=== PATIENT | female | born 1950 | race Caucasian/White ===

== ENCOUNTER 2018-06-20 13:03 | Inpatient (IN) | payer MEDICARE, MEDICAID ==
[2018-06-20 14:10] LABS: BASO % 0.2 % (0.0-1.0); EOS % 0.7 % (0.0-3.0); HEMATOCRIT 40.4 % (36.0-47.0); HEMOGLOBIN 13.2 g/dl (12.0-15.5); IMMATURE GRANULOCYTE % 0.3 % (0-3.0); LYMPH # 1.8 10^3/uL (1.5-4.5); MEAN CORPUSCULAR HEMOGLOBIN 33.3 pg (27.0-33.0); MEAN CORPUSCULAR HGB CONC 32.7 g/dl (32.0-36.5); MONO # 0.5 10^3/uL (0.0-0.8); MONO % 7.8 % (0.0-5.0); NEUTROPHILS # 3.6 10^3/uL (1.8-7.7); PLATELET COUNT, AUTOMATED 173 10^3/uL (150-450); RED BLOOD COUNT 3.96 10^6/uL (4.00-5.40); RED CELL DISTRIBUTION WIDTH 13.6 % (11.5-14.5); WHITE BLOOD COUNT 5.9 10^3/uL (4.0-10.0)
[2018-06-20 14:13] LABS: ALBUMIN 2.5 GM/DL (3.2-5.2); ALBUMIN/GLOBULIN RATIO 0.81 (1.00-1.93); ALKALINE PHOSPHATASE 37 U/L (45-117); ALT/SGPT 11 U/L (12-78); AMYLASE 58 U/L (25-115); ANION GAP 7 MEQ/L (8-16); AST/SGOT 8 U/L (7-37); BILIRUBIN,DIRECT 0.1 MG/DL (0.0-0.2); BILIRUBIN,TOTAL 0.2 MG/DL (0.2-1.0); BLOOD UREA NITROGEN 20 MG/DL (7-18); CALCIUM LEVEL 8.9 MG/DL (8.8-10.2); CARBON DIOXIDE LEVEL 29 MEQ/L (21-32); CHLORIDE LEVEL 108 MEQ/L (98-107); CPK CREATINE PHOSPHOKINASE 49 U/L (26-192); CREATININE FOR GFR 0.72 MG/DL (0.55-1.30); GLOMERULAR FILTRATION RATE > 60.0 (>45); GLUCOSE, FASTING 124 MG/DL (70-100); INR 0.89; LIPASE 746 U/L (73-393); MB/CK RELATIVE INDEX 3.06 (< OR =4); PROTHROMBIN TIME 12.1 SECONDS (12.1-14.4); SODIUM LEVEL 144 MEQ/L (136-145); TOTAL PROTEIN 5.6 GM/DL (6.4-8.2); TROPONIN I < 0.02 NG/ML (< 0.10)
[2018-06-20 14:14] LABS: PARTIAL THROMBOPLASTIN TIME 25.7 SECONDS (25.4-37.6)
[2018-06-20 14:24] LABS: LACTIC ACID SEPSIS PROTOCOL 2.6 MMOL/L (0.4-2.0)
[2018-06-20] MEDS: NS 1,000 ML IV ×2 (14:37→16:15)
[2018-06-20] MEDS ORDERED: ISOVUE-370 76% 100ML VIAL (Q9967) As Ordered (16:14)
[2018-06-20] MEDS ORDERED: MIRALAX POWDER 255 GM BTL (POLYETHYLENE GLYCOL) PO (17:30)
[2018-06-20] MEDS: FLEET ENEMA PR (17:30)
[2018-06-20] MEDS ORDERED: ONDANSETRON 4MG/2ML VIAL (J2405) IV (17:45)
[2018-06-20] MEDS ORDERED: NICOTINE 21MG/24HR 1 EA TRANSDERMAL TD (17:45)
[2018-06-20] MEDS ORDERED: IPRATROPIUM 0.5MG/ALBUTEROL 2.5MG INH SOL UD 3ML (DUONEB)(J7620) NEB (17:45)
[2018-06-20] MEDS ORDERED: ACETAMINOPHEN TAB 650MG DOSE (2X325MG) PO (17:45)
[2018-06-20 18:35] LABS: CPK CREATINE PHOSPHOKINASE 45 U/L (26-192); MB/CK RELATIVE INDEX 3.33 (< OR =4); TROPONIN I 0.02 NG/ML (< 0.10)
[2018-06-20 18:42] LABS: FREE THYROXINE INDEX 2.1 % (1.3-4.8); T UPTAKE 37 % (30-39); THYROXINE (T4) 5.6 UG/DL (4.5-12.0)
[2018-06-20] MEDS: MIRALAX *UNIT DOSE* 17GM PACKET PO (19:11)
[2018-06-21] MEDS: HEPARIN SOD (PORCINE) 5000 UNITS/ML VIAL SC ×3 (00:43→20:52)
[2018-06-21] MEDS: ZIPRASIDONE 80 MG CAP (GEODON) PO ×3 (00:44→20:51)
[2018-06-21] MEDS: MIRALAX *UNIT DOSE* 17GM PACKET PO ×3 (00:45→20:52)
[2018-06-21] MEDS: LR 1,000 ML IV ×3 (00:45→12:08)
[2018-06-21] MEDS: DIVALPROEX 500MG *ER* TAB PO ×3 (00:45→20:51)
[2018-06-21] MEDS: SENOKOT S TAB PO ×3 (00:45→20:52)
[2018-06-21 07:00] LABS: HEMOGLOBIN 13.3 g/dl (12.0-15.5); MEAN CORPUSCULAR HEMOGLOBIN 33.8 pg (27.0-33.0); MEAN CORPUSCULAR HGB CONC 33.3 g/dl (32.0-36.5); MEAN CORPUSCULAR VOLUME 101.8 fl (80.0-96.0); PLATELET COUNT, AUTOMATED 175 10^3/uL (150-450); RED BLOOD COUNT 3.93 10^6/uL (4.00-5.40); RED CELL DISTRIBUTION WIDTH 13.2 % (11.5-14.5); WHITE BLOOD COUNT 6.8 10^3/uL (4.0-10.0)
[2018-06-21 07:20] LABS: ALBUMIN 2.4 GM/DL (3.2-5.2); ALBUMIN/GLOBULIN RATIO 0.77 (1.00-1.93); ALKALINE PHOSPHATASE 36 U/L (45-117); ALT/SGPT 11 U/L (12-78); ANION GAP 6 MEQ/L (8-16); AST/SGOT 12 U/L (7-37); BILIRUBIN,TOTAL 0.3 MG/DL (0.2-1.0); BLOOD UREA NITROGEN 10 MG/DL (7-18); CARBON DIOXIDE LEVEL 31 MEQ/L (21-32); CHLORIDE LEVEL 110 MEQ/L (98-107); CREATININE FOR GFR 0.56 MG/DL (0.55-1.30); GLOMERULAR FILTRATION RATE > 60.0 (>45); GLUCOSE, FASTING 74 MG/DL (70-100); LIPASE 139 U/L (73-393); POTASSIUM SERUM 4.2 MEQ/L (3.5-5.1); SODIUM LEVEL 147 MEQ/L (136-145); TOTAL PROTEIN 5.5 GM/DL (6.4-8.2)
[2018-06-21] MEDS: ESCITALOPRAM OXALATE 10 MG TAB (LEXAPRO) PO (08:11)
[2018-06-21] MEDS: risperiDONE 3 MG TAB PO (08:11)
[2018-06-22] MEDS: LR 1,000 ML IV ×3 (00:43→23:49)
[2018-06-22 05:08] LABS: HEMATOCRIT 37.6 % (36.0-47.0); HEMOGLOBIN 12.5 g/dl (12.0-15.5); MEAN CORPUSCULAR HEMOGLOBIN 33.2 pg (27.0-33.0); MEAN CORPUSCULAR HGB CONC 33.2 g/dl (32.0-36.5); PLATELET COUNT, AUTOMATED 163 10^3/uL (150-450); RED BLOOD COUNT 3.76 10^6/uL (4.00-5.40); RED CELL DISTRIBUTION WIDTH 13.6 % (11.5-14.5); WHITE BLOOD COUNT 5.7 10^3/uL (4.0-10.0)
[2018-06-22 05:40] LABS: ALBUMIN 2.2 GM/DL (3.2-5.2); ALBUMIN/GLOBULIN RATIO 0.71 (1.00-1.93); ALKALINE PHOSPHATASE 34 U/L (45-117); ALT/SGPT 10 U/L (12-78); ANION GAP 5 MEQ/L (8-16); AST/SGOT 10 U/L (7-37); BILIRUBIN,TOTAL 0.3 MG/DL (0.2-1.0); BLOOD UREA NITROGEN 12 MG/DL (7-18); CALCIUM LEVEL 8.9 MG/DL (8.8-10.2); CARBON DIOXIDE LEVEL 32 MEQ/L (21-32); CHLORIDE LEVEL 110 MEQ/L (98-107); CREATININE FOR GFR 0.65 MG/DL (0.55-1.30); GLOMERULAR FILTRATION RATE > 60.0 (>45); GLUCOSE, FASTING 62 MG/DL (70-100); LIPASE 163 U/L (73-393); POTASSIUM SERUM 4.2 MEQ/L (3.5-5.1); SODIUM LEVEL 147 MEQ/L (136-145); TOTAL PROTEIN 5.3 GM/DL (6.4-8.2)
[2018-06-22] MEDS: ESCITALOPRAM OXALATE 10 MG TAB (LEXAPRO) PO (08:59)
[2018-06-22] MEDS: HEPARIN SOD (PORCINE) 5000 UNITS/ML VIAL SC ×2 (08:59→20:05)
[2018-06-22] MEDS: DIVALPROEX 500MG *ER* TAB PO ×2 (09:00→20:05)
[2018-06-22] MEDS: SENOKOT S TAB PO (09:00)
[2018-06-22] MEDS: MIRALAX *UNIT DOSE* 17GM PACKET PO (09:00)
[2018-06-22] MEDS: risperiDONE 3 MG TAB PO (09:00)
[2018-06-22] MEDS: ZIPRASIDONE 80 MG CAP (GEODON) PO (09:00)
[2018-06-22 17:12] LABS: BEDSIDE GLUCOSE 123 MG/DL (80-115)
[2018-06-22] MEDS ORDERED: ZIPRASIDONE 20MG CAPSULE (GEODON) PO (18:00)
[2018-06-22] MEDS: ZIPRASIDONE 20MG CAPSULE (GEODON) PO (18:49)
[2018-06-22] MEDS: ARIPiprazole 2 MG TAB PO (20:05)
[2018-06-22] MEDS ORDERED: DIVALPROEX 250MG *ER* TAB PO (21:00)
[2018-06-23 00:53] LABS: BEDSIDE GLUCOSE 76 MG/DL (80-115)
[2018-06-23 06:13] LABS: BEDSIDE GLUCOSE 79 MG/DL (80-115)
[2018-06-23 06:29] LABS: HEMATOCRIT 36.1 % (36.0-47.0); HEMOGLOBIN 11.9 g/dl (12.0-15.5); MEAN CORPUSCULAR HEMOGLOBIN 33.3 pg (27.0-33.0); MEAN CORPUSCULAR VOLUME 101.1 fl (80.0-96.0); PLATELET COUNT, AUTOMATED 145 10^3/uL (150-450); RED BLOOD COUNT 3.57 10^6/uL (4.00-5.40); RED CELL DISTRIBUTION WIDTH 13.9 % (11.5-14.5); WHITE BLOOD COUNT 6.7 10^3/uL (4.0-10.0)
[2018-06-23 06:54] LABS: ALBUMIN 2.1 GM/DL (3.2-5.2); ALBUMIN/GLOBULIN RATIO 0.88 (1.00-1.93); ALKALINE PHOSPHATASE 32 U/L (45-117); ALT/SGPT 10 U/L (12-78); ANION GAP 8 MEQ/L (8-16); AST/SGOT 10 U/L (7-37); BILIRUBIN,TOTAL 0.2 MG/DL (0.2-1.0); BLOOD UREA NITROGEN 11 MG/DL (7-18); CALCIUM LEVEL 8.7 MG/DL (8.8-10.2); CARBON DIOXIDE LEVEL 30 MEQ/L (21-32); CHLORIDE LEVEL 108 MEQ/L (98-107); CREATININE FOR GFR 0.57 MG/DL (0.55-1.30); GLOMERULAR FILTRATION RATE > 60.0 (>45); GLUCOSE, FASTING 70 MG/DL (70-100); LIPASE 413 U/L (73-393); MAGNESIUM LEVEL 1.8 MG/DL (1.8-2.4); POTASSIUM SERUM 3.9 MEQ/L (3.5-5.1); SODIUM LEVEL 146 MEQ/L (136-145); TOTAL PROTEIN 4.5 GM/DL (6.4-8.2)
[2018-06-23] MEDS: HEPARIN SOD (PORCINE) 5000 UNITS/ML VIAL SC ×2 (08:30→20:46)
[2018-06-23] MEDS: risperiDONE 3 MG TAB PO (08:31)
[2018-06-23] MEDS: DIVALPROEX 500MG *ER* TAB PO ×2 (08:31→20:46)
[2018-06-23] MEDS: ESCITALOPRAM OXALATE 10 MG TAB (LEXAPRO) PO (08:32)
[2018-06-23] MEDS: ZIPRASIDONE 20MG CAPSULE (GEODON) PO ×2 (08:34→19:39)
[2018-06-23 08:45] LABS: CHOLESTEROL LEVEL 121 MG/DL (<200); HDL CHOLESTEROL 44 MG/DL (>40); LDL CHOLESTEROL 62 MG/DL (<100); NON-HDL-C 77 MG/DL; TRIGLYCERIDES LEVEL 76 MG/DL (<150)
[2018-06-23 12:39] LABS: BEDSIDE GLUCOSE 92 MG/DL (80-115)
[2018-06-23 18:17] LABS: BEDSIDE GLUCOSE 113 MG/DL (80-115)
[2018-06-23] MEDS: ARIPiprazole 2 MG TAB PO (20:45)
[2018-06-24] MEDS: PERCOCET 5MG/325MG TAB PO (03:54)
[2018-06-24 04:44] LABS: BEDSIDE GLUCOSE 190 MG/DL (80-115)
[2018-06-24 05:38] LABS: HEMATOCRIT 33.2 % (36.0-47.0); HEMOGLOBIN 10.9 g/dl (12.0-15.5); MEAN CORPUSCULAR HEMOGLOBIN 33.2 pg (27.0-33.0); MEAN CORPUSCULAR HGB CONC 32.8 g/dl (32.0-36.5); MEAN CORPUSCULAR VOLUME 101.2 fl (80.0-96.0); PLATELET COUNT, AUTOMATED 121 10^3/uL (150-450); RED BLOOD COUNT 3.28 10^6/uL (4.00-5.40); RED CELL DISTRIBUTION WIDTH 14.2 % (11.5-14.5); WHITE BLOOD COUNT 8.1 10^3/uL (4.0-10.0)
[2018-06-24 05:59] LABS: ALBUMIN 1.8 GM/DL (3.2-5.2); ALBUMIN/GLOBULIN RATIO 0.62 (1.00-1.93); ALKALINE PHOSPHATASE 26 U/L (45-117); ALT/SGPT 9 U/L (12-78); ANION GAP 6 MEQ/L (8-16); AST/SGOT 9 U/L (7-37); BILIRUBIN,TOTAL 0.1 MG/DL (0.2-1.0); BLOOD UREA NITROGEN 12 MG/DL (7-18); CALCIUM LEVEL 7.8 MG/DL (8.8-10.2); CARBON DIOXIDE LEVEL 30 MEQ/L (21-32); CHLORIDE LEVEL 110 MEQ/L (98-107); CREATININE FOR GFR 0.61 MG/DL (0.55-1.30); GLOMERULAR FILTRATION RATE > 60.0 (>45); GLUCOSE, FASTING 87 MG/DL (70-100); LIPASE 176 U/L (73-393); MAGNESIUM LEVEL 1.7 MG/DL (1.8-2.4); POTASSIUM SERUM 3.7 MEQ/L (3.5-5.1); SODIUM LEVEL 146 MEQ/L (136-145); TOTAL PROTEIN 4.7 GM/DL (6.4-8.2)
[2018-06-24] MEDS: ESCITALOPRAM OXALATE 10 MG TAB (LEXAPRO) PO (09:03)
[2018-06-24] MEDS: risperiDONE 3 MG TAB PO (09:03)
[2018-06-24] MEDS: ZIPRASIDONE 20MG CAPSULE (GEODON) PO ×2 (09:03→18:04)
[2018-06-24] MEDS: DIVALPROEX 500MG *ER* TAB PO ×2 (09:03→20:06)
[2018-06-24] MEDS: HEPARIN SOD (PORCINE) 5000 UNITS/ML VIAL SC ×2 (09:03→20:06)
[2018-06-24] MEDS: cefTRIAXone SOD 1 GM in D5W MINI-BAG PLUS 50 ML IV (12:22)
[2018-06-24 12:29] LABS: KETONE, URINE AUTO RFX NEGATIVE (NEGATIVE); LEUKOCYTE ESTERASE UR AUTO RFX NEGATIVE (NEGATIVE); MUCUS, URINE RFX SMALL (NEGATIVE); RBC, URINE AUTO RFX 1 /HPF (0-3); SPECIFIC GRAVITY UR AUTO RFX 1.016 (1.002-1.035); SQUAM EPITHELIAL CELL UR AURFX 1 /HPF (0-6); WBC, URINE AUTO RFX 1 /HPF (0-3)
[2018-06-24 12:33] LABS: NITRITE, URINE AUTO RFX POSITIVE (NEGATIVE)
[2018-06-24] MEDS: NS 0.45% 1,000 ML IV (15:18)
[2018-06-24 15:24] LABS: CORTISOL BASELINE 16.3 UG/DL (4.3-22.4)
[2018-06-24] MEDS: ARIPiprazole 2 MG TAB PO (20:06)
[2018-06-25] MEDS: cefTRIAXone SOD 1 GM in D5W MINI-BAG PLUS 50 ML IV ×2 (02:50→12:27)
[2018-06-25 05:54] LABS: HEMATOCRIT 33.6 % (36.0-47.0); MEAN CORPUSCULAR HEMOGLOBIN 32.8 pg (27.0-33.0); MEAN CORPUSCULAR HGB CONC 32.7 g/dl (32.0-36.5); MEAN CORPUSCULAR VOLUME 100.3 fl (80.0-96.0); PLATELET COUNT, AUTOMATED 123 10^3/uL (150-450); RED BLOOD COUNT 3.35 10^6/uL (4.00-5.40); RED CELL DISTRIBUTION WIDTH 14.1 % (11.5-14.5); WHITE BLOOD COUNT 10.8 10^3/uL (4.0-10.0)
[2018-06-25 06:21] LABS: ALKALINE PHOSPHATASE 29 U/L (45-117); ALT/SGPT 7 U/L (12-78); ANION GAP 7 MEQ/L (8-16); AST/SGOT 6 U/L (7-37); BILIRUBIN,TOTAL 0.2 MG/DL (0.2-1.0); BLOOD UREA NITROGEN 10 MG/DL (7-18); CALCIUM LEVEL 8.5 MG/DL (8.8-10.2); CARBON DIOXIDE LEVEL 31 MEQ/L (21-32); CHLORIDE LEVEL 107 MEQ/L (98-107); CREATININE FOR GFR 0.53 MG/DL (0.55-1.30); GLOMERULAR FILTRATION RATE > 60.0 (>45); GLUCOSE, FASTING 77 MG/DL (70-100); LIPASE 141 U/L (73-393); SODIUM LEVEL 145 MEQ/L (136-145); TOTAL PROTEIN 4.5 GM/DL (6.4-8.2)
[2018-06-25] MEDS: ESCITALOPRAM OXALATE 10 MG TAB (LEXAPRO) PO (08:16)
[2018-06-25] MEDS: ZIPRASIDONE 20MG CAPSULE (GEODON) PO ×2 (08:16→17:16)
[2018-06-25] MEDS: DIVALPROEX 500MG *ER* TAB PO ×2 (08:16→20:42)
[2018-06-25] MEDS: HEPARIN SOD (PORCINE) 5000 UNITS/ML VIAL SC ×2 (08:16→20:42)
[2018-06-25] MEDS: risperiDONE 3 MG TAB PO (08:16)
[2018-06-25] MEDS ORDERED: SLF 3 ML SYR IV (20:30)
[2018-06-25] MEDS: ARIPiprazole 2 MG TAB PO (20:42)
[2018-06-25] MEDS: SLF 3 ML SYR IV (20:43)
[2018-06-26] MEDS: cefTRIAXone SOD 1 GM in D5W MINI-BAG PLUS 50 ML IV ×3 (00:09→23:50)
[2018-06-26] MEDS: SLF 3 ML SYR IV ×3 (05:50→21:59)
[2018-06-26 06:20] LABS: HEMATOCRIT 31.8 % (36.0-47.0); HEMOGLOBIN 10.7 g/dl (12.0-15.5); MEAN CORPUSCULAR HGB CONC 33.6 g/dl (32.0-36.5); MEAN CORPUSCULAR VOLUME 98.1 fl (80.0-96.0); PLATELET COUNT, AUTOMATED 122 10^3/uL (150-450); RED BLOOD COUNT 3.24 10^6/uL (4.00-5.40); RED CELL DISTRIBUTION WIDTH 14.4 % (11.5-14.5); WHITE BLOOD COUNT 7.9 10^3/uL (4.0-10.0)
[2018-06-26 07:02] LABS: ALBUMIN 1.9 GM/DL (3.2-5.2); ALBUMIN/GLOBULIN RATIO 0.63 (1.00-1.93); ALKALINE PHOSPHATASE 28 U/L (45-117); ALT/SGPT 8 U/L (12-78); ANION GAP 5 MEQ/L (8-16); AST/SGOT 6 U/L (7-37); BILIRUBIN,TOTAL 0.1 MG/DL (0.2-1.0); BLOOD UREA NITROGEN 16 MG/DL (7-18); CALCIUM LEVEL 8.5 MG/DL (8.8-10.2); CARBON DIOXIDE LEVEL 31 MEQ/L (21-32); CHLORIDE LEVEL 109 MEQ/L (98-107); CREATININE FOR GFR 0.51 MG/DL (0.55-1.30); GLOMERULAR FILTRATION RATE > 60.0 (>45); GLUCOSE, FASTING 72 MG/DL (70-100); LIPASE 164 U/L (73-393); POTASSIUM SERUM 3.8 MEQ/L (3.5-5.1); SODIUM LEVEL 145 MEQ/L (136-145); TOTAL PROTEIN 4.9 GM/DL (6.4-8.2)
[2018-06-26] MEDS: ESCITALOPRAM OXALATE 10 MG TAB (LEXAPRO) PO (08:38)
[2018-06-26] MEDS: HEPARIN SOD (PORCINE) 5000 UNITS/ML VIAL SC ×2 (08:39→20:36)
[2018-06-26] MEDS: DIVALPROEX 500MG *ER* TAB PO ×2 (08:39→20:37)
[2018-06-26] MEDS: risperiDONE 3 MG TAB PO (08:39)
[2018-06-26] MEDS: ZIPRASIDONE 20MG CAPSULE (GEODON) PO (08:39)
[2018-06-26] MEDS: ARIPiprazole 2 MG TAB PO (20:36)
[2018-06-27] MEDS: SLF 3 ML SYR IV (05:23)
[2018-06-27 06:01] LABS: HEMOGLOBIN 10.4 g/dl (12.0-15.5); MEAN CORPUSCULAR HEMOGLOBIN 32.9 pg (27.0-33.0); MEAN CORPUSCULAR HGB CONC 32.5 g/dl (32.0-36.5); MEAN CORPUSCULAR VOLUME 101.3 fl (80.0-96.0); PLATELET COUNT, AUTOMATED 121 10^3/uL (150-450); RED BLOOD COUNT 3.16 10^6/uL (4.00-5.40); RED CELL DISTRIBUTION WIDTH 14.6 % (11.5-14.5); WHITE BLOOD COUNT 5.7 10^3/uL (4.0-10.0)
[2018-06-27 06:21] LABS: ALBUMIN 1.8 GM/DL (3.2-5.2); ALKALINE PHOSPHATASE 24 U/L (45-117); ALT/SGPT 6 U/L (12-78); ANION GAP 6 MEQ/L (8-16); AST/SGOT 8 U/L (7-37); BILIRUBIN,TOTAL 0.1 MG/DL (0.2-1.0); BLOOD UREA NITROGEN 18 MG/DL (7-18); CALCIUM LEVEL 8.1 MG/DL (8.8-10.2); CARBON DIOXIDE LEVEL 30 MEQ/L (21-32); CHLORIDE LEVEL 110 MEQ/L (98-107); CREATININE FOR GFR 0.52 MG/DL (0.55-1.30); GLOMERULAR FILTRATION RATE > 60.0 (>45); GLUCOSE, FASTING 76 MG/DL (70-100); LIPASE 134 U/L (73-393); MAGNESIUM LEVEL 1.9 MG/DL (1.8-2.4); POTASSIUM SERUM 3.8 MEQ/L (3.5-5.1); SODIUM LEVEL 146 MEQ/L (136-145); TOTAL PROTEIN 4.8 GM/DL (6.4-8.2)
[2018-06-27] MEDS: DIVALPROEX 500MG *ER* TAB PO (09:35)
[2018-06-27] MEDS: risperiDONE 2 MG TAB PO (09:36)
[2018-06-27] MEDS: FLUoxetine 10 MG CAP PO (09:36)
[2018-06-27 14:39] LABS: ALDOS/RENIN RATIO <3.8 (0.0-30.0); ALDOSTERONE <1.0 ng/dL (0.0-30.0); RENIN ACTIVITY 0.265 ng/mL/hr (0.167-5.380)
[2018-07-02 08:17] LABS: "\\\"INSULIN \\\"\\\"PRO\\\"\\\" LEVEL\\\"" 2.1 pmol/L (0.0-10.0); ACETOHEXAMIDE Negative ug/mL (20-60); CHLORPROPAMIDE Negative ug/mL (75-250); GLIMEPIRIDE Negative ng/mL (80-250); GLIPIZIDE Negative ng/mL (200-1000); GLYBURIDE Negative ng/mL (UP TO 1500); INSULIN FREE 7.7 uU/mL (.); INSULIN TOTAL2 7.7 uU/mL (.); NATEGLINIDE Negative ng/mL (UP TO 10000); REPAGLINIDE Negative ng/mL (UP TO 200); TOLAZAMIDE Negative ug/mL (UP TO 80); TOLBUTAMIDE Negative ug/mL (40-100)
[2018-07-02 08:17] LABS: INSULIN ANTIBODY <5.0 uU/mL (.)
== END 2018-06-27 11:19 | disposition home or self-care (01) | DRG 315 ==
LOC: M PCU 06-21 00:01 → M ED 13:03 → M ED INP 17:32
DX: I95.9 Hypotension, unspecified (principal); I47.2 Ventricular tachycardia; N39.0 Urinary tract infection, site not specified; E87.2 Acidosis; F20.0 Paranoid schizophrenia; I45.81 Long QT syndrome; T43.591A Poisoning by other antipsychotics and neuroleptics, accidental (unintentional), initial encounter; K59.00 Constipation, unspecified; E16.2 Hypoglycemia, unspecified; R15.9 Full incontinence of feces; F41.9 Anxiety disorder, unspecified; F17.210 Nicotine dependence, cigarettes, uncomplicated; Z91.19 Patient's noncompliance with other medical treatment and regimen; Z79.899 Other long term (current) drug therapy

== ENCOUNTER 2018-07-31 11:52 | Inpatient (IN) | payer MEDICARE, MEDICAID ==
[~2018-07-31] VITALS: Ht 170.2 cm; Wt 67.0 kg
[~2018-07-31 11:52] MED LIST: ARIP2TAB PO; ARIP5TA PO; DIVA500T9 PO; ESCI20TA PO; PROZ10CA7 PO; RISP2TAB32 PO; RISP3TAB3 PO; ZIPR80CA12 PO
[2018-07-31 15:31] LABS: HEMATOCRIT 41.2 % (36.0-47.0); HEMOGLOBIN 13.6 g/dl (12.0-15.5); MEAN CORPUSCULAR HEMOGLOBIN 33.3 pg (27.0-33.0); MEAN CORPUSCULAR VOLUME 100.7 fl (80.0-96.0); PLATELET COUNT, AUTOMATED 233 10^3/uL (150-450); RED BLOOD COUNT 4.09 10^6/uL (4.00-5.40); WHITE BLOOD COUNT 7.8 10^3/uL (4.0-10.0)
[2018-07-31 15:57] LABS: ACETAMINOPHEN LEVEL < 2.0 UG/ML (10.0-30.0); ALBUMIN 3.3 GM/DL (3.2-5.2); ALT/SGPT 15 U/L (12-78); BILIRUBIN,DIRECT < 0.1 MG/DL (0.0-0.2); BILIRUBIN,TOTAL 0.4 MG/DL (0.2-1.0); BLOOD UREA NITROGEN 10 MG/DL (7-18); CALCIUM LEVEL 9.9 MG/DL (8.8-10.2); CARBON DIOXIDE LEVEL 29 MEQ/L (21-32); CHLORIDE LEVEL 102 MEQ/L (98-107); ETHYL ALCOHOL (ETHANOL) < 0.003 % (0.000-0.010); GLOMERULAR FILTRATION RATE > 60.0 (>45); GLUCOSE, FASTING 91 MG/DL (70-100); SALICYLATE LEVEL < 1.7 MG/DL (5.0-30.0); SODIUM LEVEL 140 MEQ/L (136-145); TOTAL PROTEIN 6.6 GM/DL (6.4-8.2)
[2018-07-31] MEDS ORDERED: ARIP2TAB PO (15:57)
[2018-07-31] MEDS ORDERED: ARIP5TA PO (15:57)
[2018-07-31] MEDS ORDERED: RISP3TAB3 PO (15:57)
[2018-07-31] MEDS ORDERED: FLUO10TA2 PO (15:57)
[2018-07-31 17:41] LABS: GLUCOSE, URINE (UA) MANUAL NEGATIVE (NEGATIVE); KETONE, URINE MANUAL OBSCURED mg/dL (NEGATIVE)
[2018-07-31 17:42] LABS: BILIRUBIN, URINE MANUAL 1+ (NEGATIVE); UROBILINOGEN, URINE MANUAL NORMAL (NORMAL)
[2018-07-31 17:43] LABS: BACTERIA, URINE LARGE AMOUNT; HYALINE CAST, URINE NONE SEEN /lpf (0-1); SQUAMOUS EPITHELIAL CELL URINE SMALL AMOUNT /hpf (SMALL AMT)
[2018-07-31 17:47] LABS: AMPHETAMINES LEVEL URINE NEGATIVE (NEGATIVE); BARBITURATES URINE NEGATIVE (NEGATIVE); BENZODIAZEPINES URINE NEGATIVE (NEGATIVE); CANNABINOIDS URINE NEGATIVE (NEGATIVE); COCAINE METABOLITE URINE NEGATIVE (NEGATIVE); METHADONE URINE NEGATIVE (NEGATIVE); OPIATES URINE NEGATIVE (NEGATIVE); PHENCYCLIDINE URINE NEGATIVE (NEGATIVE)
[2018-07-31] MEDS ORDERED: NITROFURANTOIN (MACROBID) 100 MG CAP PO ONE (18:00)
[2018-07-31] MEDS ORDERED: ACETAMINOPHEN TAB 650MG DOSE (2X325MG) PO PRN (19:00)
[2018-07-31] MEDS ORDERED: MAALOX 30 ML SUSP *UDC PO PRN (19:00)
[2018-07-31] MEDS ORDERED: traZODone 50 MG TAB PO PRN (19:00)
[2018-07-31] MEDS ORDERED: MOM 30ML SUSPENSION UDC PO PRN (19:00)
[2018-07-31] MEDS: DIVALPROEX 500MG *ER* TAB PO SCH (20:51)
[2018-07-31] MEDS ORDERED: FLUoxetine 10 MG CAP PO SCH (21:00)
[2018-07-31] MEDS ORDERED: DIVALPROEX 500 MG TAB PO SCH (21:00)
[2018-07-31] MEDS ORDERED: ARIPiprazole 2 MG TAB PO SCH (21:00)
[2018-07-31 22:06] VITALS: BP 129/64
[2018-08-01 06:39] VITALS: BP 122/61
[2018-08-01] MEDS ORDERED: risperiDONE 3 MG TAB PO SCH (09:00)
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
[2018-08-01] MEDS: DIVALPROEX 500MG *ER* TAB PO SCH ×2 (09:18→21:00)
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
[2018-08-01 15:42] LABS: VITAMIN B12 LEVEL 537 PG/ML
[2018-08-01 15:43] LABS: FOLATE 18.7 NG/ML
[2018-08-01] MEDS: PALIPERIDONE 3 MG ER TAB (INVEGA) PO SCH (21:00)
[2018-08-02 06:47] VITALS: BP 131/63
[2018-08-02] MEDS: CEFDINIR 300 MG CAP (OMNICEF) PO SCH ×2 (09:29→21:00)
[2018-08-02] MEDS: DIVALPROEX 500MG *ER* TAB PO SCH ×2 (09:29→21:00)
[2018-08-02] MEDS: PALIPERIDONE 3 MG ER TAB (INVEGA) PO SCH ×2 (09:29→21:00)
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
[2018-08-02] MEDS ORDERED: OLANZapine INTRAMUSCULAR 10 MG VIAL (S0166) IM ONE (15:00)
[2018-08-03 06:36] VITALS: BP 123/63
[2018-08-03] MEDS: PALIPERIDONE 3 MG ER TAB (INVEGA) PO SCH ×2 (09:13→21:52)
[2018-08-03] MEDS: DIVALPROEX 500MG *ER* TAB PO SCH ×2 (09:13→21:53)
[2018-08-03] MEDS: CEFDINIR 300 MG CAP (OMNICEF) PO SCH ×2 (09:13→21:52)
[2018-08-03] MEDS ORDERED: OLANZapine ORAL DISINTEGRATING TAB 5MG PO PRN (12:45)
[2018-08-04] MEDS: PALIPERIDONE 3 MG ER TAB (INVEGA) PO SCH ×2 (09:02→21:43)
[2018-08-04] MEDS: CEFDINIR 300 MG CAP (OMNICEF) PO SCH ×3 (09:02→21:43)
[2018-08-04] MEDS: DIVALPROEX 500MG *ER* TAB PO SCH ×2 (09:02→21:43)
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
[2018-08-04 18:16] VITALS: BP 118/67
[2018-08-05 06:37] VITALS: BP 133/79
[2018-08-05] MEDS: DIVALPROEX 500MG *ER* TAB PO SCH ×2 (09:10→22:04)
[2018-08-05] MEDS: CEFDINIR 300 MG CAP (OMNICEF) PO SCH ×2 (09:10→22:04)
[2018-08-05] MEDS: PALIPERIDONE 3 MG ER TAB (INVEGA) PO SCH ×2 (09:10→22:04)
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
[2018-08-05] MEDS ORDERED: PALIPERIDONE PALMITATE 234 MG/1.5 ML INJ (INVEGA SUSTENNA)(J2426) IM ONE (12:00)
[2018-08-05 18:00] VITALS: BP 113/60
--- NOTE | 2018-08-05 21:57 | MHIPN ---
DATE: 08/04/2018 The patient today tells me that she is doing fine. She has no complaints but she remains quite paranoid. MENTAL STATUS EXAM: She is alert and oriented times three. Eye contact is very good. She is verbally spontaneous. She has no formal thought disorder noted. She says her mood is good. Her affect is appropriate to her mood. She remains with a lot of paranoid delusions. Her insight is poor. DIAGNOSES: Schizophrenia Moderate neurocognitive disorder TREATMENT AND PLAN: We will continue to monitor the patient for continued psychotic symptoms and we will continue to titrate her medications as indicated. PHILLIP
[2018-08-06 06:57] VITALS: BP 118/56
[2018-08-06] MEDS: DIVALPROEX 500MG *ER* TAB PO SCH ×2 (09:19→20:48)
[2018-08-06] MEDS: CEFDINIR 300 MG CAP (OMNICEF) PO SCH ×2 (09:19→20:47)
[2018-08-06] MEDS: PALIPERIDONE 3 MG ER TAB (INVEGA) PO SCH ×2 (09:19→20:48)
--- NOTE | 2018-08-06 11:15 | MHIPNPDOC ---
[facility] Progress Note Progress Note DATE OF SERVICE: 08/06/18 HISTORY: Patient is a 68 -year-old , female, with a history of moderate dementia, schizophrenia who was sent to [facility] ED from [facility] due to pt being combative and assaultive toward staff there, threatening 91y/o roommate, and licking hands covered in feces. Recently d/c from medical floor for treatment of hypotension and seen by Dr. Renato becker and diagnosed with schizophrenia. Per nursing staff, when pt seen today, asked if she was incontinent of feces and pt proceeded to put her hands down the back of her pants then smell and lick her had stating "no I'm clean" then went on to like a bar of soap. When I attempted to see pt in her room she looked at me and then looked down not cooperating with interview. History gathered from chart review. VITAL SIGNS: See below. NEW TEST RESULTS: See below. CURRENT MEDICATIONS: See below. MENTAL STATUS EXAMINATION: General Appearance: clean, disheveled, hospital scrubs/clothing, sitting on bed. room smells of urine and urine stain on the floor Build: average Demeanor: pleasant, asking me to get her coffee Eye Contact: good Activity: average Behavior: cooperative, resistant to coming out of room Speech: reg rate/rhythm/volume Mood: euthymic, bright Mood "alright" Affect: appropriate, no longer labile, minor mood elevation Thought Process: coherent, more linear and logical to conversation Thought Content (Delusions): continues to have paranoia Thought Content (Other): appears paranoid Thought Content (Aggressive): none reported Perception (Hallucinations): auditory Perception (Other): none reported Cognition (Impairment of): improved orientation, memory, attention/concentration, ability to abstract Cognition(Intelligence Est.): other (demented) Oriented: Awake, Alert, oriented Insight: poor Judgment: Poor Psychosis: less Associations, Abstract Thinking, Psychotic Perceptions DIAGNOSES: paranoid schizophrenia moderate cognitive d/o ASSESSMENT:Pt less bizarre and is able to carry on a logical conversation although not very reliable and limited. Focused on get her jewelry, clothes, purse. Told her she can have a shirt and underwear, didn't want her pants. Pt refused invega sustenna yesterday that was ordered for compliance and discussed medication with pt today and agrees to take. Appears to be isolative and paranoid, but does walk milieu occasionally. PT/OT ordered to evaluate and treat as pt gregory hunched over when she walks and appears to need a walker but when asked it she would like one to help her she stated no. Pt is showering on own but still incontinent of urine in her bed.. Compliant with all oral meds and appears they are beneficial and she's tolerating them well. Will give invega sustenna 234mg loading dose for compliance today followed by maintenance dose in 3 days pending tolerance. States she's no longer touching her feces and urine, licking hands, but room smells of urine and there's a urine stain on the floor. MANAGEMENT PLAN: Medications: invega 3mg bid invega sustenna 234mg im today depakote er 500mg bid. TIME SPENT: 30 minutes. Vital Signs Vital Signs Date Time Temp Pulse Resp B/P (MAP) Pulse Ox O2 Delivery O2 Flow Rate FiO2 08/06/18 06:57 97.3 75 14 118/56 (76) Room Air 07/31/18 22:06 95 Current Medications Current Medications Acetaminophen (Tylenol Tab) 650 mg Q6HP PRN PO HEADACHE or DISCOMFORT; Start 07/31/18 at 19:00 Al Hydrox/Mg Hydrox/Simethicone (Mylanta) 30 ml Q4HP PRN PO HEARTBURN/INDIGESTION; Start 07/31/18 at 19:00 Aripiprazole (AbiLIFY) 2 mg QHS PO Last administered on 07/31/18at 20:53; Start 07/31/18 at 21:00; Stop 08/01/18 at 15:17; Status DC Aripiprazole (AbiLIFY) 5 mg QAM PO Last administered on 08/01/18at 09:19; Start 08/01/18 at 09:00; Stop 08/01/18 at 15:17; Status DC Cefdinir (Omnicef) 300 mg BID PO Last administered on 08/06/18at 09:19; Start 08/02/18 at 09:00; Stop 08/08/18 at 21:01 Divalproex Sodium (Depakote Er) 500 mg BID PO Last administered on 08/06/18at 09:19; Start 07/31/18 at 21:00 Divalproex Sodium (Depakote) 500 mg BID PO ; Start 07/31/18 at 21:00; Stop 07/31/18 at 21:00; Status DC Fluoxetine HCl (PROzac) 10 mg QHS PO Last administered on 07/31/18at 20:52; Start 07/31/18 at 21:00; Stop 08/01/18 at 15:17; Status DC Home Med (Med Rec Complete!) ASDIRECTED XX ; Start 07/31/18 at 16:00; Stop 07/31/18 at 16:08; Status DC Magnesium Hydroxide (Milk Of Magnesia) 30 ml DAILYPRN PRN PO CONSTIPATION; Start 07/31/18 at 19:00 Olanzapine (ZyPREXA ZYDIS) 10 mg Q4HP PRN PO ANXIETY/AGITATION Last administered on 08/03/18at 16:46; Start 08/03/18 at 12:45 Paliperidone (Invega) 3 mg QAM PO Last administered on 08/06/18at 09:19; Start 08/02/18 at 09:00 Paliperidone (Invega) 3 mg QHS PO Last administered on 08/05/18at 22:04; Start 08/01/18 at 21:00 Risperidone (RisperDAL) 3 mg DAILY PO Last administered on 08/01/18at 09:19; Start 08/01/18 at 09:00; Stop 08/01/18 at 15:17; Status DC Trazodone HCl (Desyrel) 50 mg QHSP PRN PO INSOMNIA; Start 07/31/18 at 19:00 Allergies Coded Allergies: No Known Allergies (Verified , 08/13/05) WILLIAM SALCEDO DO Aug 06, 2018 11:15
[2018-08-06] MEDS ORDERED: PALIPERIDONE PALMITATE 234 MG/1.5 ML INJ (INVEGA SUSTENNA)(J2426) IM ONE (13:00)
[2018-08-06 17:59] VITALS: BP 109/60
[2018-08-07 06:40] VITALS: BP 126/53
[2018-08-07] MEDS: PALIPERIDONE 3 MG ER TAB (INVEGA) PO SCH (09:24)
[2018-08-07] MEDS: DIVALPROEX 500MG *ER* TAB PO SCH ×2 (09:25→22:28)
[2018-08-07] MEDS: CEFDINIR 300 MG CAP (OMNICEF) PO SCH ×2 (09:25→22:28)
--- NOTE | 2018-08-07 10:39 | MHIPNPDOC ---
[facility] Progress Note Progress Note DATE OF SERVICE: 08/07/18 HISTORY: Patient is a 68 -year-old , female, with a history of moderate dementia, schizophrenia who was sent to [facility] ED from [facility] due to pt being combative and assaultive toward staff there, threatening 91y/o roommate, and licking hands covered in feces. Recently d/c from medical floor for treatment of hypotension and seen by Dr. Renato becker and diagnosed with schizophrenia. Per nursing staff, when pt seen today, asked if she was incontinent of feces and pt proceeded to put her hands down the back of her pants then smell and lick her had stating "no I'm clean" then went on to like a bar of soap. When I attempted to see pt in her room she looked at me and then looked down not cooperating with interview. History gathered from chart review. VITAL SIGNS: See below. NEW TEST RESULTS: See below. CURRENT MEDICATIONS: See below. MENTAL STATUS EXAMINATION: General Appearance: clean, disheveled, hospital scrubs/clothing, sitting on bed. room smells of urine and urine stain on the floor Build: average Demeanor: pleasant, asking me to get her coffee Eye Contact: good Activity: average Behavior: cooperative, resistant to coming out of room Speech: reg rate/rhythm/volume Mood: euthymic, bright Mood "alright" Affect: appropriate, no longer labile, minor mood elevation Thought Process: coherent, more linear and logical to conversation Thought Content (Delusions): continues to have paranoia Thought Content (Other): appears paranoid Thought Content (Aggressive): none reported Perception (Hallucinations): auditory Perception (Other): none reported Cognition (Impairment of): improved orientation, memory, attention/concentration, ability to abstract Cognition(Intelligence Est.): other (demented) Oriented: Awake, Alert, oriented Insight: poor Judgment: Poor Psychosis: less Associations, Abstract Thinking, Psychotic Perceptions DIAGNOSES: paranoid schizophrenia moderate cognitive d/o ASSESSMENT:Pt seen in room and refuses to talk b/c "I need to get somethings straight and I can't do that with you here." Appears to be isolative and paranoid, and easily distracted but does walk milieu occasionally. PT/OT ordered to evaluate and treat as pt very hunched over when she walks and appears to need a walker but when asked it she would like one to help her she stated no. Pt refusing to shower and still incontinent of urine in her bed. Incontinence is improving though. Will continue to encourage pt to shower as she's using wipes to clean herself now but is not enough for proper hygiene. Compliant with all oral meds and appears they are beneficial and she's tolerating them well. Pt took invega sustenna 234mg loading dose for compliance yesterday and tolerated it well. Plan to followed by maintenance dose in 3 days pending tolerance. States she's no longer touching her feces and urine, licking hands, but room smells of urine and there's a urine stain on the floor. MANAGEMENT PLAN: Medications: d/c invega 3mg bid invega sustenna 234mg im 08/07/18 depakote er 500mg bid. TIME SPENT: 30 minutes. Vital Signs Vital Signs Date Time Temp Pulse Resp B/P (MAP) Pulse Ox O2 Delivery O2 Flow Rate FiO2 08/07/18 06:40 97.1 67 16 126/53 (77) 08/06/18 06:57 Room Air Current Medications Current Medications Acetaminophen (Tylenol Tab) 650 mg Q6HP PRN PO HEADACHE or DISCOMFORT; Start 07/31/18 at 19:00 Al Hydrox/Mg Hydrox/Simethicone (Mylanta) 30 ml Q4HP PRN PO HEARTBURN/INDIGESTION; Start 07/31/18 at 19:00 Aripiprazole (AbiLIFY) 2 mg QHS PO Last administered on 07/31/18at 20:53; Start 07/31/18 at 21:00; Stop 08/01/18 at 15:17; Status DC Aripiprazole (AbiLIFY) 5 mg QAM PO Last administered on 08/01/18at 09:19; Start 08/01/18 at 09:00; Stop 08/01/18 at 15:17; Status DC Cefdinir (Omnicef) 300 mg BID PO Last administered on 08/07/18at 09:25; Start 08/02/18 at 09:00; Stop 08/08/18 at 21:01 Divalproex Sodium (Depakote Er) 500 mg BID PO Last administered on 08/07/18at 09:25; Start 07/31/18 at 21:00 Divalproex Sodium (Depakote) 500 mg BID PO ; Start 07/31/18 at 21:00; Stop 07/31/18 at 21:00; Status DC Fluoxetine HCl (PROzac) 10 mg QHS PO Last administered on 07/31/18at 20:52; Start 07/31/18 at 21:00; Stop 08/01/18 at 15:17; Status DC Home Med (Med Rec Complete!) ASDIRECTED XX ; Start 07/31/18 at 16:00; Stop 07/31/18 at 16:08; Status DC Magnesium Hydroxide (Milk Of Magnesia) 30 ml DAILYPRN PRN PO CONSTIPATION; Start 07/31/18 at 19:00 Olanzapine (ZyPREXA ZYDIS) 10 mg Q4HP PRN PO ANXIETY/AGITATION Last administered on 08/03/18at 16:46; Start 08/03/18 at 12:45 Paliperidone (Invega) 3 mg QAM PO Last administered on 08/07/18at 09:24; Start 08/02/18 at 09:00 Paliperidone (Invega) 3 mg QHS PO Last administered on 08/06/18at 20:48; Start 08/01/18 at 21:00 Risperidone (RisperDAL) 3 mg DAILY PO Last administered on 08/01/18at 09:19; Start 08/01/18 at 09:00; Stop 08/01/18 at 15:17; Status DC Trazodone HCl (Desyrel) 50 mg QHSP PRN PO INSOMNIA; Start 07/31/18 at 19:00 Allergies Coded Allergies: No Known Allergies (Verified , 08/13/05) WILLIAM SALCEDO DO Aug 07, 2018 10:39 am
[2018-08-07 18:00] VITALS: BP 98/56
[2018-08-08 06:39] VITALS: BP 101/57
[2018-08-08] MEDS: DIVALPROEX 500MG *ER* TAB PO SCH ×2 (09:08→21:25)
[2018-08-08] MEDS: CEFDINIR 300 MG CAP (OMNICEF) PO SCH ×2 (09:09→21:25)
--- NOTE | 2018-08-08 10:03 | MHIPNPDOC ---
[facility] Progress Note Progress Note DATE OF SERVICE: 08/08/18 HISTORY: Patient is a 68 -year-old , female, with a history of moderate dementia, schizophrenia who was sent to [facility] ED from [facility] due to pt being combative and assaultive toward staff there, threatening 91y/o roommate, and licking hands covered in feces. Recently d/c from medical floor for treatment of hypotension and seen by Dr. Renato becker and diagnosed with schizophrenia. Per nursing staff, when pt seen today, asked if she was incontinent of feces and pt proceeded to put her hands down the back of her pants then smell and lick her had stating "no I'm clean" then went on to like a bar of soap. When I attempted to see pt in her room she looked at me and then looked down not cooperating with interview. History gathered from chart review. VITAL SIGNS: See below. NEW TEST RESULTS: See below. CURRENT MEDICATIONS: See below. MENTAL STATUS EXAMINATION: General Appearance: clean, disheveled, hospital scrubs/clothing, sitting on bed. room smells of urine and urine stain on the floor Build: average Demeanor: pleasant, asking me to get her coffee Eye Contact: good Activity: average Behavior: cooperative, resistant to coming out of room Speech: reg rate/rhythm/volume Mood: euthymic, bright Mood "alright" Affect: appropriate, labile around asking pt to shower as gets irritated and refuses to do so Thought Process: coherent, more linear and logical to conversation Thought Content (Delusions): continues to have mild paranoia Thought Content (Other): improved paranoia Thought Content (Aggressive): none reported Perception (Hallucinations): auditory Perception (Other): none reported Cognition (Impairment of): improved orientation, attention/concentration, ability to abstract Cognition(Intelligence Est.): other (demented) Oriented: Awake, Alert, oriented Insight: poor Judgment: Poor Psychosis: improving Associations, Abstract Thinking, Psychotic Perceptions DIAGNOSES: paranoid schizophrenia moderate cognitive d/o ASSESSMENT:Pt seen in room and states she's ok today. Asked pt if she showered and states that "nurse, the little blond girl, said it was ok to use a basin and refuses to shower. Spoke with nurses who definitely didn't said washing with basin was ok and will work on pt shower today. Pt needs to shower as has an improving UTI that was affecting her psychiatrically. Appears to be isolative and paranoid, and easily distracted but does walk milieu occasionally. PT/OT ordered to evaluate and treat as pt very hunched over when she walks and appears to need a walker but when asked it she would like one to help her she stated no. Incontinence is improving. Compliant with all oral meds and appears they are beneficial and she's tolerating them well. Pt took invega sustenna 234mg loading dose for compliance 08/06/18 and will schedule 156mg maintenance dose for tomorrow as she is tolerating the im med well and denies side effects. States she's no longer touching her feces and urine, licking hands, and room no longer smells of urine with no urine stain on the floor. MANAGEMENT PLAN: Medications: d/c invega 3mg bid invega sustenna 234mg im 08/06/18 invega sustenna 156mg im 08/09/18 depakote er 500mg bid. TIME SPENT: 30 minutes. Vital Signs Vital Signs Date Time Temp Pulse Resp B/P (MAP) Pulse Ox O2 Delivery O2 Flow Rate FiO2 08/08/18 06:39 97.8 75 16 101/57 (72) 08/06/18 06:57 Room Air Current Medications Current Medications Acetaminophen (Tylenol Tab) 650 mg Q6HP PRN PO HEADACHE or DISCOMFORT; Start 07/31/18 at 19:00 Al Hydrox/Mg Hydrox/Simethicone (Mylanta) 30 ml Q4HP PRN PO HEARTBURN/INDIGESTION; Start 07/31/18 at 19:00 Aripiprazole (AbiLIFY) 2 mg QHS PO Last administered on 07/31/18at 20:53; Start 07/31/18 at 21:00; Stop 08/01/18 at 15:17; Status DC Aripiprazole (AbiLIFY) 5 mg QAM PO Last administered on 08/01/18at 09:19; Start 08/01/18 at 09:00; Stop 08/01/18 at 15:17; Status DC Cefdinir (Omnicef) 300 mg BID PO Last administered on 08/08/18at 09:09; Start 08/02/18 at 09:00; Stop 08/08/18 at 21:01 Divalproex Sodium (Depakote Er) 500 mg BID PO Last administered on 08/08/18at 09:08; Start 07/31/18 at 21:00 Divalproex Sodium (Depakote) 500 mg BID PO ; Start 07/31/18 at 21:00; Stop 07/31/18 at 21:00; Status DC Fluoxetine HCl (PROzac) 10 mg QHS PO Last administered on 07/31/18at 20:52; Start 07/31/18 at 21:00; Stop 08/01/18 at 15:17; Status DC Home Med (Med Rec Complete!) ASDIRECTED XX ; Start 07/31/18 at 16:00; Stop 07/31/18 at 16:08; Status DC Magnesium Hydroxide (Milk Of Magnesia) 30 ml DAILYPRN PRN PO CONSTIPATION; Start 07/31/18 at 19:00 Olanzapine (ZyPREXA ZYDIS) 10 mg Q4HP PRN PO ANXIETY/AGITATION Last administered on 08/03/18at 16:46; Start 08/03/18 at 12:45 Paliperidone (Invega) 3 mg QAM PO Last administered on 08/07/18at 09:24; Start 08/02/18 at 09:00; Stop 08/07/18 at 10:40; Status DC Paliperidone (Invega) 3 mg QHS PO Last administered on 08/06/18at 20:48; Start 08/01/18 at 21:00; Stop 08/07/18 at 10:40; Status DC Risperidone (RisperDAL) 3 mg DAILY PO Last administered on 08/01/18at 09:19; Start 08/01/18 at 09:00; Stop 08/01/18 at 15:17; Status DC Trazodone HCl (Desyrel) 50 mg QHSP PRN PO INSOMNIA Last administered on 08/07/18at 22:28; Start 07/31/18 at 19:00 Allergies Coded Allergies: No Known Allergies (Verified , 08/13/05) WILLIAM SALCEDO DO Aug 08, 2018 10:03
[2018-08-08] MEDS ORDERED: OLANZapine INTRAMUSCULAR 10 MG VIAL (S0166) IM ONE (12:00)
[2018-08-08 18:00] VITALS: BP 115/59
[2018-08-09 07:00] VITALS: BP 126/52
[2018-08-09] MEDS: DIVALPROEX 500MG *ER* TAB PO SCH ×2 (08:09→21:29)
--- NOTE | 2018-08-09 10:08 | MHIPNPDOC ---
[facility] Progress Note Progress Note DATE OF SERVICE: 08/09/18 HISTORY: Patient is a 68 -year-old , female, with a history of moderate dementia, schizophrenia who was sent to [facility] ED from [facility] due to pt being combative and assaultive toward staff there, threatening 91y/o roommate, and licking hands covered in feces. Recently d/c from medical floor for treatment of hypotension and seen by Dr. Renato becker and diagnosed with schizophrenia. Per nursing staff, when pt seen today, asked if she was incontinent of feces and pt proceeded to put her hands down the back of her pants then smell and lick her had stating "no I'm clean" then went on to like a bar of soap. When I attempted to see pt in her room she looked at me and then looked down not cooperating with interview. History gathered from chart review. VITAL SIGNS: See below. NEW TEST RESULTS: See below. CURRENT MEDICATIONS: See below. MENTAL STATUS EXAMINATION: General Appearance: clean, disheveled, hospital scrubs/clothing, sitting on bed. room was just cleaned Build: average Demeanor: pleasant Eye Contact: good Activity: average Behavior: cooperative, resistant to coming out of room Speech: reg rate/rhythm/volume Mood: euthymic, bright Mood "alright" Affect: appropriate, labile around asking pt to shower as gets irritated and refuses to do so today Thought Process: coherent, more linear and logical to conversation Thought Content (Delusions): continues to have mild paranoia Thought Content (Other): improved paranoia Thought Content (Aggressive): none reported Perception (Hallucinations): none reported Perception (Other): none reported Cognition (Impairment of): improved orientation, attention/concentration, ability to abstract Cognition(Intelligence Est.): other (demented) Oriented: Awake, Alert, oriented Insight: poor Judgment: Poor Psychosis: improving Associations, Abstract Thinking, Psychotic Perceptions DIAGNOSES: paranoid schizophrenia moderate cognitive d/o ASSESSMENT:Pt seen in room and states she's ok today. Asked pt if she showered and states that she did even though I know she didn't. Pt showered with aid of nursing yesterday. Will continue to encourage daily hygiene. Pt needs to shower as has an improving UTI that was affecting her psychiatrically. Improving isolative and paranoia. Attention is improved. PT/OT ordered to evaluate and treat as pt very hunched over when she walks and appears to need a walker but when asked it she would like one to help her she stated no. Incontinence is improving. Compliant with all oral meds and appears they are beneficial and she's tolerating them well. Pt took invega sustenna 234mg loading dose for compliance 08/06/18 and will give 156mg maintenance dose for today as she is tolerating the im med well and denies side effects. States she's no longer touching her feces and urine, licking hands, and room no longer smells of urine with no urine stain on the floor. MANAGEMENT PLAN: Medications: d/c invega 3mg bid invega sustenna 234mg im 08/06/18 invega sustenna 156mg im 08/09/18 depakote er 500mg bid. TIME SPENT: 30 minutes. Vital Signs Vital Signs Date Time Temp Pulse Resp B/P (MAP) Pulse Ox O2 Delivery O2 Flow Rate FiO2 08/09/18 07:00 97.0 75 16 126/52 (76) 08/06/18 06:57 Room Air Current Medications Current Medications Acetaminophen (Tylenol Tab) 650 mg Q6HP PRN PO HEADACHE or DISCOMFORT; Start 07/31/18 at 19:00 Al Hydrox/Mg Hydrox/Simethicone (Mylanta) 30 ml Q4HP PRN PO HEARTBURN/INDIGESTION; Start 07/31/18 at 19:00 Aripiprazole (AbiLIFY) 2 mg QHS PO Last administered on 07/31/18at 20:53; Start 07/31/18 at 21:00; Stop 08/01/18 at 15:17; Status DC Aripiprazole (AbiLIFY) 5 mg QAM PO Last administered on 08/01/18at 09:19; Start 08/01/18 at 09:00; Stop 08/01/18 at 15:17; Status DC Cefdinir (Omnicef) 300 mg BID PO Last administered on 08/08/18at 21:25; Start 08/02/18 at 09:00; Stop 08/08/18 at 21:01; Status DC Divalproex Sodium (Depakote Er) 500 mg BID PO Last administered on 08/09/18at 08:09; Start 07/31/18 at 21:00 Divalproex Sodium (Depakote) 500 mg BID PO ; Start 07/31/18 at 21:00; Stop 07/31/18 at 21:00; Status DC Fluoxetine HCl (PROzac) 10 mg QHS PO Last administered on 07/31/18at 20:52; Start 07/31/18 at 21:00; Stop 08/01/18 at 15:17; Status DC Home Med (Med Rec Complete!) ASDIRECTED XX ; Start 07/31/18 at 16:00; Stop 07/31/18 at 16:08; Status DC Magnesium Hydroxide (Milk Of Magnesia) 30 ml DAILYPRN PRN PO CONSTIPATION; Start 07/31/18 at 19:00 Olanzapine (ZyPREXA ZYDIS) 10 mg Q4HP PRN PO ANXIETY/AGITATION Last administered on 08/03/18at 16:46; Start 08/03/18 at 12:45 Paliperidone (Invega) 3 mg QAM PO Last administered on 08/07/18at 09:24; Start 08/02/18 at 09:00; Stop 08/07/18 at 10:40; Status DC Paliperidone (Invega) 3 mg QHS PO Last administered on 08/06/18at 20:48; Start 08/01/18 at 21:00; Stop 08/07/18 at 10:40; Status DC Risperidone (RisperDAL) 3 mg DAILY PO Last administered on 08/01/18at 09:19; Start 08/01/18 at 09:00; Stop 08/01/18 at 15:17; Status DC Trazodone HCl (Desyrel) 50 mg QHSP PRN PO INSOMNIA Last administered on 08/07/18at 22:28; Start 07/31/18 at 19:00 Allergies Coded Allergies: No Known Allergies (Verified , 08/13/05) WILLIAM SALCEDO DO Aug 09, 2018 10:08 am
[2018-08-09] MEDS ORDERED: PALIPERIDONE PALMITATE 156 MG/1ML INJ(INVEGA SUSTENNA)(J2426) IM ONE (12:00)
[2018-08-09 18:18] VITALS: BP 104/57
[2018-08-10 06:54] VITALS: BP 119/75
[2018-08-10] MEDS: DIVALPROEX 500MG *ER* TAB PO SCH ×2 (09:23→21:00)
[2018-08-10 18:00] VITALS: BP 108/56
[2018-08-11 07:00] VITALS: BP 121/75
[2018-08-11] MEDS: DIVALPROEX 500MG *ER* TAB PO SCH ×2 (09:24→21:22)
[2018-08-11 18:00] VITALS: BP 104/56
[2018-08-12 06:39] VITALS: BP 127/58
[2018-08-12] MEDS: DIVALPROEX 500MG *ER* TAB PO SCH ×2 (09:53→22:07)
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
[2018-08-12 18:00] VITALS: BP 126/54
[2018-08-13 06:42] VITALS: BP 94/54
[2018-08-13] MEDS: DIVALPROEX 500MG *ER* TAB PO SCH ×2 (09:16→21:51)
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
[2018-08-13 18:00] VITALS: BP 127/58
[2018-08-14 06:57] VITALS: BP 104/61
[2018-08-14] MEDS: DIVALPROEX 500MG *ER* TAB PO SCH ×2 (09:15→21:24)
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
[2018-08-14] MEDS: oxyBUTYnin *DITROPAN XL* 5 MG TABCR PO SCH ×2 (11:01→21:24)
[2018-08-14 18:00] VITALS: BP 111/59
[2018-08-15 07:20] VITALS: BP 125/54
[2018-08-15] MEDS: DIVALPROEX 500MG *ER* TAB PO SCH ×2 (09:24→21:54)
[2018-08-15] MEDS: oxyBUTYnin *DITROPAN XL* 5 MG TABCR PO SCH ×2 (09:24→21:54)
[2018-08-15 18:00] VITALS: BP 84/50
[2018-08-15 18:47] VITALS: BP 98/56
[2018-08-16 07:06] VITALS: BP 105/53
[2018-08-16] MEDS: DIVALPROEX 500MG *ER* TAB PO SCH ×2 (09:09→21:54)
[2018-08-16] MEDS: oxyBUTYnin *DITROPAN XL* 5 MG TABCR PO SCH ×2 (09:09→21:54)
[2018-08-16 18:00] VITALS: BP 104/50
[2018-08-17 06:33] VITALS: BP 104/55
[2018-08-17] MEDS: oxyBUTYnin *DITROPAN XL* 5 MG TABCR PO SCH ×2 (10:11→20:23)
[2018-08-17] MEDS: DIVALPROEX 500MG *ER* TAB PO SCH ×2 (10:11→20:24)
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
[2018-08-17 18:13] VITALS: BP 108/59
[2018-08-18 06:46] VITALS: BP 129/59
[2018-08-18] MEDS: DIVALPROEX 500MG *ER* TAB PO SCH ×2 (08:56→20:30)
[2018-08-18] MEDS: oxyBUTYnin *DITROPAN XL* 5 MG TABCR PO SCH ×2 (08:56→20:30)
[2018-08-18 18:13] VITALS: BP 141/63
[2018-08-18 18:15] VITALS: BP 98/50
[2018-08-19 06:31] VITALS: BP 118/58
[2018-08-19] MEDS: DIVALPROEX 500MG *ER* TAB PO SCH ×2 (09:18→21:31)
[2018-08-19] MEDS: oxyBUTYnin *DITROPAN XL* 5 MG TABCR PO SCH ×2 (09:18→21:31)
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
[2018-08-19 18:00] VITALS: BP 108/59
[2018-08-20 06:55] VITALS: BP 108/61
[2018-08-20] MEDS: DIVALPROEX 500MG *ER* TAB PO SCH ×2 (09:31→21:17)
[2018-08-20] MEDS: oxyBUTYnin *DITROPAN XL* 5 MG TABCR PO SCH ×2 (09:31→21:17)
--- NOTE | 2018-08-20 09:38 | MHIPNPDOC ---
[facility] Progress Note Progress Note DATE OF SERVICE: 08/20/18 HISTORY: Patient is a 68 -year-old , female, with a history of moderate dementia, schizophrenia who was sent to [facility] ED from [facility] due to pt being combative and assaultive toward staff there, threatening 91y/o roommate, and licking hands covered in feces. Recently d/c from medical floor for treatment of hypotension and seen by Dr. Renato becker and diagnosed with schizophrenia. Per nursing staff, when pt seen today, asked if she was incontinent of feces and pt proceeded to put her hands down the back of her pants then smell and lick her had stating "no I'm clean" then went on to like a bar of soap. When I attempted to see pt in her room she looked at me and then looked down not cooperating with interview. History gathered from chart review. VITAL SIGNS: See below. NEW TEST RESULTS: depakote lvl - 60.5 therapeutic CURRENT MEDICATIONS: See below. MENTAL STATUS EXAMINATION: General Appearance: clean, own clothing, sitting on bed. doesn't smell of urine today Build: average Demeanor: pleasant Eye Contact: good Activity: average Behavior: cooperative, calm Speech: reg rate/rhythm/volume Mood: euthymic, bright Mood "good" Affect: appropriate, calm, cooperative Thought Process: coherent, more linear and logical to conversation Thought Content (Delusions): none reported Thought Content (Other): none reported Thought Content (Aggressive): none reported Perception (Hallucinations): none reported Perception (Other): none reported Cognition (Impairment of): improved orientation, attention/concentration, ability to abstract Cognition(Intelligence Est.): other (demented) Oriented: Awake, Alert, oriented Insight: limited Judgment: limited Psychosis: none reported DIAGNOSES: paranoid schizophrenia moderate cognitive d/o ASSESSMENT:Roughly no change from yesterday. Pt seen med room and states she's ok today. Pt is taking sponge baths on her own daily although doesn't smell of urine today as just bathed. Tolerating oxybutin 5mg bid and incontinence is improved although still has occasional incontinence. Will continue to encourage daily hygiene. Improving isolative and paranoia behavior. Attention is improved. Able to ask appropriate questions and show some level of understanding during interview. Refused Pt/OT. Compliant with all oral meds and appears they are beneficial and she's tolerating them well. Pt took invega sustenna 234mg loading dose for compliance 08/06/18 and 156mg maintenance dose for 08/09/18 and tolerating the im med well, appears beneficial, and denies side effects. States she's no longer touching her feces and urine, licking hands, and room no longer smells of urine with no urine stain on the floor. Signed consent for [facility] yesterday. MANAGEMENT PLAN: continue current plan Medications: invega sustenna 234mg im 08/06/18 invega sustenna 156mg im 08/09/18 depakote er 500mg bid. oxybutin 5mg bid for incontinence TIME SPENT: 30 minutes. Vital Signs Vital Signs Date Time Temp Pulse Resp B/P (MAP) Pulse Ox O2 Delivery O2 Flow Rate FiO2 08/20/18 06:55 97.4 73 14 108/61 (77) Room Air Current Medications Current Medications Acetaminophen (Tylenol Tab) 650 mg Q6HP PRN PO HEADACHE or DISCOMFORT; Start 07/31/18 at 19:00 Al Hydrox/Mg Hydrox/Simethicone (Mylanta) 30 ml Q4HP PRN PO HEARTBURN/INDIGESTION; Start 07/31/18 at 19:00 Aripiprazole (AbiLIFY) 2 mg QHS PO Last administered on 07/31/18at 20:53; Start 07/31/18 at 21:00; Stop 08/01/18 at 15:17; Status DC Aripiprazole (AbiLIFY) 5 mg QAM PO Last administered on 08/01/18at 09:19; Start 08/01/18 at 09:00; Stop 08/01/18 at 15:17; Status DC Cefdinir (Omnicef) 300 mg BID PO Last administered on 08/08/18at 21:25; Start 08/02/18 at 09:00; Stop 08/08/18 at 21:01; Status DC Divalproex Sodium (Depakote Er) 500 mg BID PO Last administered on 08/20/18at 09:31; Start 07/31/18 at 21:00 Divalproex Sodium (Depakote) 500 mg BID PO ; Start 07/31/18 at 21:00; Stop 07/31/18 at 21:00; Status DC Fluoxetine HCl (PROzac) 10 mg QHS PO Last administered on 07/31/18at 20:52; Start 07/31/18 at 21:00; Stop 08/01/18 at 15:17; Status DC Home Med (Med Rec Complete!) ASDIRECTED XX ; Start 07/31/18 at 16:00; Stop 07/31/18 at 16:08; Status DC Magnesium Hydroxide (Milk Of Magnesia) 30 ml DAILYPRN PRN PO CONSTIPATION; Start 07/31/18 at 19:00 Olanzapine (ZyPREXA ZYDIS) 10 mg Q4HP PRN PO ANXIETY/AGITATION Last administered on 08/03/18at 16:46; Start 08/03/18 at 12:45 Oxybutynin Chloride (Ditropan Xl) 5 mg BID PO Last administered on 08/20/18at 09:31; Start 08/14/18 at 09:00 Paliperidone (Invega) 3 mg QAM PO Last administered on 08/07/18at 09:24; Start 08/02/18 at 09:00; Stop 08/07/18 at 10:40; Status DC Paliperidone (Invega) 3 mg QHS PO Last administered on 08/06/18at 20:48; Start 08/01/18 at 21:00; Stop 08/07/18 at 10:40; Status DC Risperidone (RisperDAL) 3 mg DAILY PO Last administered on 08/01/18at 09:19; Start 08/01/18 at 09:00; Stop 08/01/18 at 15:17; Status DC Trazodone HCl (Desyrel) 50 mg QHSP PRN PO INSOMNIA Last administered on 8at 22:28; Start 07/31/18 at 19:00 Allergies Coded Allergies: No Known Allergies (Verified , 08/13/05) WILLIAM SALCEDO DO Aug 20, 2018 9:38 am
[2018-08-20 18:00] VITALS: BP 122/57
[2018-08-21 06:39] VITALS: BP 127/55
[2018-08-21] MEDS: DIVALPROEX 500MG *ER* TAB PO SCH ×2 (09:49→21:39)
[2018-08-21] MEDS: oxyBUTYnin *DITROPAN XL* 5 MG TABCR PO SCH ×2 (09:54→21:39)
--- NOTE | 2018-08-21 11:33 | MHIPNPDOC ---
[facility] Progress Note Progress Note DATE OF SERVICE: 08/21/18 HISTORY: Patient is a 68 -year-old , female, with a history of moderate dementia, schizophrenia who was sent to [facility] ED from [facility] due to pt being combative and assaultive toward staff there, threatening 91y/o roommate, and licking hands covered in feces. Recently d/c from medical floor for treatment of hypotension and seen by Dr. Renato becker and diagnosed with schizophrenia. Per nursing staff, when pt seen today, asked if she was incontinent of feces and pt proceeded to put her hands down the back of her pants then smell and lick her had stating "no I'm clean" then went on to like a bar of soap. When I attempted to see pt in her room she looked at me and then looked down not cooperating with interview. History gathered from chart review. VITAL SIGNS: See below. NEW TEST RESULTS: depakote lvl - 60.5 therapeutic CURRENT MEDICATIONS: See below. MENTAL STATUS EXAMINATION: General Appearance: clean, own clothing, sitting on bed. doesn't smell of urine today Build: average Demeanor: pleasant Eye Contact: good Activity: average Behavior: cooperative, calm Speech: reg rate/rhythm/volume Mood: euthymic, bright Mood "good" Affect: appropriate, calm, cooperative Thought Process: coherent, more linear and logical to conversation Thought Content (Delusions): none reported Thought Content (Other): none reported Thought Content (Aggressive): none reported Perception (Hallucinations): none reported Perception (Other): none reported Cognition (Impairment of): improved orientation, attention/concentration, ability to abstract Cognition(Intelligence Est.): other (demented) Oriented: Awake, Alert, oriented Insight: limited Judgment: limited Psychosis: none reported DIAGNOSES: paranoid schizophrenia moderate cognitive d/o ASSESSMENT:Roughly no change from yesterday. Pt seen med room and states she's good today and is reading a paper on her bed. Wrapped a book in group yesterday that she's proud to show me. She pleasant and cooperative. Pt is taking sponge baths on her own daily although doesn't smell of urine today as just bathed. Tolerating oxybutin 5mg bid and incontinence is improved although still has occasional incontinence. Will continue to encourage daily hygiene. Improving isolative and paranoia behavior. Attention is improved. Able to ask appropriate questions and show some level of understanding during interview. Refused Pt/OT. Compliant with all oral meds and appears they are beneficial and she's tolerating them well. Pt took invega sustenna 234mg loading dose for compliance 08/06/18 and 156mg maintenance dose for 08/09/18 and tolerating the im med well, appears beneficial, and denies side effects. States she's no longer touching her feces and urine, licking hands, and room no longer smells of urine with no urine stain on the floor. Signed consent for [facility] and [facility] yesterday. MANAGEMENT PLAN: continue current plan Medications: invega sustenna 234mg im 08/06/18 invega sustenna 156mg im 08/09/18 depakote er 500mg bid. oxybutin 5mg bid for incontinence TIME SPENT: 30 minutes. Vital Signs Vital Signs Date Time Temp Pulse Resp B/P (MAP) Pulse Ox O2 Delivery O2 Flow Rate FiO2 08/21/18 08:40 Room Air 08/21/18 06:39 98.3 64 16 127/55 (79) Current Medications Current Medications Acetaminophen (Tylenol Tab) 650 mg Q6HP PRN PO HEADACHE or DISCOMFORT; Start 07/31/18 at 19:00 Al Hydrox/Mg Hydrox/Simethicone (Mylanta) 30 ml Q4HP PRN PO HEARTBURN/INDIGESTION; Start 07/31/18 at 19:00 Aripiprazole (AbiLIFY) 2 mg QHS PO Last administered on 07/31/18at 20:53; Start 07/31/18 at 21:00; Stop 08/01/18 at 15:17; Status DC Aripiprazole (AbiLIFY) 5 mg QAM PO Last administered on 08/01/18at 09:19; Start 08/01/18 at 09:00; Stop 08/01/18 at 15:17; Status DC Cefdinir (Omnicef) 300 mg BID PO Last administered on 08/08/18at 21:25; Start 08/02/18 at 09:00; Stop 08/08/18 at 21:01; Status DC Divalproex Sodium (Depakote Er) 500 mg BID PO Last administered on 08/21/18at 09:49; Start 07/31/18 at 21:00 Divalproex Sodium (Depakote) 500 mg BID PO ; Start 07/31/18 at 21:00; Stop 07/31/18 at 21:00; Status DC Fluoxetine HCl (PROzac) 10 mg QHS PO Last administered on 07/31/18at 20:52; Start 07/31/18 at 21:00; Stop 08/01/18 at 15:17; Status DC Home Med (Med Rec Complete!) ASDIRECTED XX ; Start 07/31/18 at 16:00; Stop 07/31/18 at 16:08; Status DC Magnesium Hydroxide (Milk Of Magnesia) 30 ml DAILYPRN PRN PO CONSTIPATION; Start 07/31/18 at 19:00 Olanzapine (ZyPREXA ZYDIS) 10 mg Q4HP PRN PO ANXIETY/AGITATION Last administered on 08/03/18at 16:46; Start 08/03/18 at 12:45 Oxybutynin Chloride (Ditropan Xl) 5 mg BID PO Last administered on 08/21/18at 09:54; Start 08/14/18 at 09:00 Paliperidone (Invega) 3 mg QAM PO Last administered on 08/07/18at 09:24; Start 08/02/18 at 09:00; Stop 08/07/18 at 10:40; Status DC Paliperidone (Invega) 3 mg QHS PO Last administered on 08/06/18at 20:48; Start 08/01/18 at 21:00; Stop 08/07/18 at 10:40; Status DC Risperidone (RisperDAL) 3 mg DAILY PO Last administered on 08/01/18at 09:19; Start 08/01/18 at 09:00; Stop 08/01/18 at 15:17; Status DC Trazodone HCl (Desyrel) 50 mg QHSP PRN PO INSOMNIA Last administered on 08/07/18at 22:28; Start 07/31/18 at 19:00 Allergies Coded Allergies: No Known Allergies (Verified , 08/13/05) WILLIAM SALCEDO DO Aug 21, 2018 11:33 am
[2018-08-21 18:00] VITALS: BP 84/48
[2018-08-22 06:51] VITALS: BP 98/50
[2018-08-22] MEDS: oxyBUTYnin *DITROPAN XL* 5 MG TABCR PO SCH ×2 (09:38→21:39)
[2018-08-22] MEDS: DIVALPROEX 500MG *ER* TAB PO SCH ×2 (09:38→21:38)
--- NOTE | 2018-08-22 10:30 | MHIPNPDOC ---
[facility] Progress Note Progress Note DATE OF SERVICE: 08/22/18 HISTORY: Patient is a 68 -year-old , female, with a history of moderate dementia, schizophrenia who was sent to [facility] ED from [facility] due to pt being combative and assaultive toward staff there, threatening 91y/o roommate, and licking hands covered in feces. Recently d/c from medical floor for treatment of hypotension and seen by Dr. Renato becker and diagnosed with schizophrenia. Per nursing staff, when pt seen today, asked if she was incontinent of feces and pt proceeded to put her hands down the back of her pants then smell and lick her had stating "no I'm clean" then went on to like a bar of soap. When I attempted to see pt in her room she looked at me and then looked down not cooperating with interview. History gathered from chart review. VITAL SIGNS: See below. NEW TEST RESULTS: depakote lvl - 60.5 therapeutic CURRENT MEDICATIONS: See below. MENTAL STATUS EXAMINATION: No change from yesterday General Appearance: clean, own clothing, sitting on bed. doesn't smell of urine today Build: average Demeanor: pleasant Eye Contact: good Activity: average Behavior: cooperative, calm Speech: reg rate/rhythm/volume Mood: euthymic, bright Mood "good" Affect: appropriate, calm, cooperative Thought Process: coherent, more linear and logical to conversation Thought Content (Delusions): none reported Thought Content (Other): none reported Thought Content (Aggressive): none reported Perception (Hallucinations): none reported Perception (Other): none reported Cognition (Impairment of): improved orientation, attention/concentration, ability to abstract Cognition(Intelligence Est.): other (demented) Oriented: Awake, Alert, oriented Insight: limited Judgment: limited Psychosis: none reported DIAGNOSES: paranoid schizophrenia moderate cognitive d/o ASSESSMENT:Roughly no change from yesterday. Pt seen med room and states she's good today and laying peacefully on her bed. Pt is taking sponge baths on her own daily although doesn't smell of urine. Tolerating oxybutin 5mg bid and incontinence is improved although still has occasional incontinence. Will continue to encourage daily hygiene. baseline isolative to room most likely due to difficulty walking. Will reconsult PT/OT to evaluate and treat as TLS is asking for pt to be able to go up 1-2 steps. Attention is good. Able to ask appropriate questions and show some level of understanding during interview. Compliant with all oral meds and appears they are beneficial and she's tolerating them well. Pt took invega sustenna 234mg loading dose for compliance 08/06/18 and 156mg maintenance dose for 08/09/18 and tolerating the im med well, appears beneficial, and denies side effects. States she's no longer touching her feces and urine, licking hands, and room no longer smells of urine with no urine stain on the floor. Signed consent for [facility] and [facility] yesterday. MANAGEMENT PLAN: continue current plan Medications: invega sustenna 234mg im 08/06/18 invega sustenna 156mg im 08/09/18 depakote er 500mg bid. oxybutin 5mg bid for incontinence TIME SPENT: 30 minutes. Vital Signs Vital Signs Date Time Temp Pulse Resp B/P (MAP) Pulse Ox O2 Delivery O2 Flow Rate FiO2 08/22/18 07:55 Room Air 08/22/18 06:51 98.5 60 18 98/50 (66) Current Medications Current Medications Acetaminophen (Tylenol Tab) 650 mg Q6HP PRN PO HEADACHE or DISCOMFORT; Start 07/31/18 at 19:00 Al Hydrox/Mg Hydrox/Simethicone (Mylanta) 30 ml Q4HP PRN PO HEARTBURN/INDIGESTION; Start 07/31/18 at 19:00 Aripiprazole (AbiLIFY) 2 mg QHS PO Last administered on 07/31/18at 20:53; Start 07/31/18 at 21:00; Stop 08/01/18 at 15:17; Status DC Aripiprazole (AbiLIFY) 5 mg QAM PO Last administered on 08/01/18at 09:19; Start 08/01/18 at 09:00; Stop 08/01/18 at 15:17; Status DC Cefdinir (Omnicef) 300 mg BID PO Last administered on 08/08/18at 21:25; Start 08/02/18 at 09:00; Stop 08/08/18 at 21:01; Status DC Divalproex Sodium (Depakote Er) 500 mg BID PO Last administered on 08/22/18at 09:38; Start 07/31/18 at 21:00 Divalproex Sodium (Depakote) 500 mg BID PO ; Start 07/31/18 at 21:00; Stop 07/31/18 at 21:00; Status DC Fluoxetine HCl (PROzac) 10 mg QHS PO Last administered on 07/31/18at 20:52; Start 07/31/18 at 21:00; Stop 08/01/18 at 15:17; Status DC Home Med (Med Rec Complete!) ASDIRECTED XX ; Start 07/31/18 at 16:00; Stop 07/31/18 at 16:08; Status DC Magnesium Hydroxide (Milk Of Magnesia) 30 ml DAILYPRN PRN PO CONSTIPATION; Start 07/31/18 at 19:00 Olanzapine (ZyPREXA ZYDIS) 10 mg Q4HP PRN PO ANXIETY/AGITATION Last administered on 08/03/18at 16:46; Start 08/03/18 at 12:45 Oxybutynin Chloride (Ditropan Xl) 5 mg BID PO Last administered on 08/22/18at 09:38; Start 08/14/18 at 09:00 Paliperidone (Invega) 3 mg QAM PO Last administered on 08/07/18at 09:24; Start 08/02/18 at 09:00; Stop 08/07/18 at 10:40; Status DC Paliperidone (Invega) 3 mg QHS PO Last administered on 08/06/18at 20:48; Start 08/01/18 at 21:00; Stop 08/07/18 at 10:40; Status DC Risperidone (RisperDAL) 3 mg DAILY PO Last administered on 08/01/18at 09:19; Start 08/01/18 at 09:00; Stop 08/01/18 at 15:17; Status DC Trazodone HCl (Desyrel) 50 mg QHSP PRN PO INSOMNIA Last administered on 08/07/18at 22:28; Start 07/31/18 at 19:00 Allergies Coded Allergies: No Known Allergies (Verified , 08/13/05) WILLIAM SALCEDO DO Aug 22, 2018 10:30 am
[2018-08-22 18:00] VITALS: BP 92/55
[2018-08-23 06:36] VITALS: BP 97/47
[2018-08-23] MEDS: DIVALPROEX 500MG *ER* TAB PO SCH ×2 (09:07→20:55)
[2018-08-23] MEDS: oxyBUTYnin *DITROPAN XL* 5 MG TABCR PO SCH ×2 (09:07→20:55)
--- NOTE | 2018-08-23 10:02 | MHIPNPDOC ---
[facility] Progress Note Progress Note DATE OF SERVICE: 08/23/18 HISTORY: Patient is a 68 -year-old , female, with a history of moderate dementia, schizophrenia who was sent to [facility] ED from [facility] due to pt being combative and assaultive toward staff there, threatening 91y/o roommate, and licking hands covered in feces. Recently d/c from medical floor for treatment of hypotension and seen by Dr. Renato becker and diagnosed with schizophrenia. Per nursing staff, when pt seen today, asked if she was incontinent of feces and pt proceeded to put her hands down the back of her pants then smell and lick her had stating "no I'm clean" then went on to like a bar of soap. When I attempted to see pt in her room she looked at me and then looked down not cooperating with interview. History gathered from chart review. VITAL SIGNS: See below. NEW TEST RESULTS: depakote lvl - 60.5 therapeutic CURRENT MEDICATIONS: See below. MENTAL STATUS EXAMINATION: No change from yesterday General Appearance: clean, dressing in new clothes and wearing earrings, looks nice, walking to phone with some difficulty (refused help) in milieu. doesn't smell of urine today Build: average Demeanor: pleasant Eye Contact: good Activity: average Behavior: cooperative, calm Speech: reg rate/rhythm/volume Mood: euthymic, bright Mood "good" Affect: appropriate, calm, cooperative Thought Process: coherent, more linear and logical to conversation Thought Content (Delusions): none reported Thought Content (Other): none reported Thought Content (Aggressive): none reported Perception (Hallucinations): none reported Perception (Other): none reported Cognition (Impairment of): improved orientation, attention/concentration, ability to abstract Cognition(Intelligence Est.): other (demented) Oriented: Awake, Alert, oriented Insight: limited Judgment: limited Psychosis: none reported DIAGNOSES: paranoid schizophrenia moderate cognitive d/o ASSESSMENT:Roughly no change from yesterday. Pt seen in milieu attempting to walk to phone w/some difficulty but refused help. States she's good today and wearing new clothes, earring, looking nice. Pt is taking sponge baths on her own daily although doesn't smell of urine. Tolerating oxybutin 5mg bid and incontinence is improved although still has occasional incontinence. Will continue to encourage daily hygiene. Baseline isolative to room most likely due to difficulty walking. Reconsulted PT/OT to evaluate and treat for [facility]. Attention is good. Able to ask appropriate questions and show some level of understanding during interview. Compliant with all oral meds and appears they are beneficial and she's tolerating them well. Pt took invega sustenna 234mg loading dose for compliance 08/06/18 and 156mg maintenance dose for 08/09/18 and tolerating the im med well, appears beneficial, and denies side effects. States she's no longer touching her feces and urine, licking hands, and room no longer smells of urine with no urine stain on the floor. Refused by [facility] residential housing and now awaiting [facility] evaluation and hopeful acceptance. MANAGEMENT PLAN: continue current plan Medications: invega sustenna 234mg im 08/06/18 invega sustenna 156mg im 08/09/18 depakote er 500mg bid. oxybutin 5mg bid for incontinence TIME SPENT: 30 minutes. Vital Signs Vital Signs Date Time Temp Pulse Resp B/P (MAP) Pulse Ox O2 Delivery O2 Flow Rate FiO2 08/23/18 06:36 98.7 56 18 97/47 (64) Room Air Current Medications Current Medications Acetaminophen (Tylenol Tab) 650 mg Q6HP PRN PO HEADACHE or DISCOMFORT; Start 07/31/18 at 19:00 Al Hydrox/Mg Hydrox/Simethicone (Mylanta) 30 ml Q4HP PRN PO HEARTBURN/INDIGESTION; Start 07/31/18 at 19:00 Aripiprazole (AbiLIFY) 2 mg QHS PO Last administered on 07/31/18at 20:53; Start 07/31/18 at 21:00; Stop 08/01/18 at 15:17; Status DC Aripiprazole (AbiLIFY) 5 mg QAM PO Last administered on 08/01/18at 09:19; Start 08/01/18 at 09:00; Stop 08/01/18 at 15:17; Status DC Cefdinir (Omnicef) 300 mg BID PO Last administered on 08/08/18at 21:25; Start 08/02/18 at 09:00; Stop 08/08/18 at 21:01; Status DC Divalproex Sodium (Depakote Er) 500 mg BID PO Last administered on 08/23/18 09:07; Start 07/31/18 at 21:00 Divalproex Sodium (Depakote) 500 mg BID PO ; Start 07/31/18 at 21:00; Stop 07/31/18 at 21:00; Status DC Fluoxetine HCl (PROzac) 10 mg QHS PO Last administered on 07/31/18at 20:52; Start 07/31/18 at 21:00; Stop 08/01/18 at 15:17; Status DC Home Med (Med Rec Complete!) ASDIRECTED XX ; Start 07/31/18 at 16:00; Stop 07/31/18 at 16:08; Status DC Magnesium Hydroxide (Milk Of Magnesia) 30 ml DAILYPRN PRN PO CONSTIPATION; Start 07/31/18 at 19:00 Olanzapine (ZyPREXA ZYDIS) 10 mg Q4HP PRN PO ANXIETY/AGITATION Last administered on 08/03/18at 16:46; Start 08/03/18 at 12:45 Oxybutynin Chloride (Ditropan Xl) 5 mg BID PO Last administered on 08/23/18at 09:07; Start 08/14/18 at 09:00 Paliperidone (Invega) 3 mg QAM PO Last administered on 08/07/18at 09:24; Start 08/02/18 at 09:00; Stop 08/07/18 at 10:40; Status DC Paliperidone (Invega) 3 mg QHS PO Last administered on 08/06/18at 20:48; Start 08/01/18 at 21:00; Stop 08/07/18 at 10:40; Status DC Risperidone (RisperDAL) 3 mg DAILY PO Last administered on 08/01/18at 09:19; Start 08/01/18 at 09:00; Stop 08/01/18 at 15:17; Status DC Trazodone HCl (Desyrel) 50 mg QHSP PRN PO INSOMNIA Last administered on 08/07/18at 22:28; Start 07/31/18 at 19:00 Allergies Coded Allergies: No Known Allergies (Verified , 08/13/05) WILLIAM SALCEDO DO Aug 23, 2018 9:17 am
[2018-08-23 18:04] VITALS: BP 101/65
[2018-08-24 06:52] VITALS: BP 95/65
[2018-08-24] MEDS: DIVALPROEX 500MG *ER* TAB PO SCH ×2 (09:01→20:53)
[2018-08-24] MEDS: oxyBUTYnin *DITROPAN XL* 5 MG TABCR PO SCH ×2 (09:01→20:53)
[2018-08-24 18:30] VITALS: BP 102/55
[2018-08-25 07:02] VITALS: BP 98/56
[2018-08-25] MEDS: oxyBUTYnin *DITROPAN XL* 5 MG TABCR PO SCH ×2 (08:59→22:00)
[2018-08-25] MEDS: DIVALPROEX 500MG *ER* TAB PO SCH ×2 (08:59→22:00)
[2018-08-25 18:07] VITALS: BP 87/53
[2018-08-26 06:26] VITALS: BP 100/51
[2018-08-26] MEDS: DIVALPROEX 500MG *ER* TAB PO SCH ×2 (09:36→21:57)
[2018-08-26] MEDS: oxyBUTYnin *DITROPAN XL* 5 MG TABCR PO SCH ×2 (09:36→21:57)
--- NOTE | 2018-08-26 11:58 | MHIPNPDOC ---
[facility] Progress Note Progress Note DATE OF SERVICE: 08/26/18 HISTORY: Patient is a 68 -year-old , female, with a history of moderate dementia, schizophrenia who was sent to [facility] ED from [facility] due to pt being combative and assaultive toward staff there, threatening 91y/o roommate, and licking hands covered in feces. Recently d/c from medical floor for treatment of hypotension and seen by Dr. Renato becker and diagnosed with schizophrenia. Per nursing staff, when pt seen today, asked if she was incontinent of feces and pt proceeded to put her hands down the back of her pants then smell and lick her had stating "no I'm clean" then went on to like a bar of soap. When I attempted to see pt in her room she looked at me and then looked down not cooperating with interview. History gathered from chart review. VITAL SIGNS: See below. NEW TEST RESULTS: depakote lvl - 60.5 therapeutic CURRENT MEDICATIONS: See below. MENTAL STATUS EXAMINATION: No change from yesterday General Appearance: clean, dressing in new clothes and wearing earrings, looks nice, walking to phone with some difficulty (refused help) in milieu. doesn't smell of urine today Build: average Demeanor: pleasant Eye Contact: good Activity: average Behavior: cooperative, calm Speech: reg rate/rhythm/volume Mood: euthymic, bright Mood "good" Affect: appropriate, calm, cooperative Thought Process: coherent, more linear and logical to conversation Thought Content (Delusions): none reported Thought Content (Other): none reported Thought Content (Aggressive): none reported Perception (Hallucinations): none reported Perception (Other): none reported Cognition (Impairment of): improved orientation, attention/concentration, ability to abstract Cognition(Intelligence Est.): other (demented) Oriented: Awake, Alert, oriented Insight: limited Judgment: limited Psychosis: none reported DIAGNOSES: paranoid schizophrenia moderate cognitive d/o ASSESSMENT:Roughly no change from last week Pt seen in her room. States she's good today and wearing new clothes, earrings, looking nice. Pt is taking sponge baths on her own daily although doesn't smell of urine. Tolerating oxybutin 5mg bid and incontinence is improved although still has occasional incontinence. W ill continue to encourage daily hygiene. Baseline isolative to room most likely due to difficulty walking. Reconsulted PT/OT to evaluate and treat for Family Care Program. Pt agreeable to working with them. Attention is good. Able to ask appropriate questions and show some level of understanding during interview. Compliant with all oral meds and appears they are beneficial and she's tolerating them well. Pt took invega sustenna 234mg loading dose for compliance 08/06/18 and 156mg maintenance dose for 08/09/18 and tolerating the im med well, appears beneficial, and denies side effects. States she's no longer touching her feces and urine, licking hands, and room no longer smells of urine with no urine stain on the floor. Refused by [facility] residential housing and now awaiting [facility] evaluation and hopeful acceptance. MANAGEMENT PLAN: continue current plan Medications: invega sustenna 234mg im 08/06/18 invega sustenna 156mg im 08/09/18 depakote er 500mg bid. oxybutin 5mg bid for incontinence TIME SPENT: 30 minutes. Vital Signs Vital Signs Date Time Temp Pulse Resp B/P (MAP) Pulse Ox O2 Delivery O2 Flow Rate FiO2 08/26/18 10:35 Room Air 08/26/18 06:26 97.9 54 14 100/51 (67) Current Medications Current Medications Acetaminophen (Tylenol Tab) 650 mg Q6HP PRN PO HEADACHE or DISCOMFORT; Start 07/31/18 at 19:00 Al Hydrox/Mg Hydrox/Simethicone (Mylanta) 30 ml Q4HP PRN PO HEARTBURN/INDIGESTION; Start 07/31/18 at 19:00 Aripiprazole (AbiLIFY) 2 mg QHS PO Last administered on 07/31/18at 20:53; Start 07/31/18 at 21:00; Stop 08/01/18 at 15:17; Status DC Aripiprazole (AbiLIFY) 5 mg QAM PO Last administered on 08/01/18at 09:19; Start 08/01/18 at 09:00; Stop 08/01/18 at 15:17; Status DC Cefdinir (Omnicef) 300 mg BID PO Last administered on 08/08/18at 21:25; Start 08/02/18 at 09:00; Stop 08/08/18 at 21:01; Status DC Divalproex Sodium (Depakote Er) 500 mg BID PO Last administered on 08/26/18 09:36; Start 07/31/18 at 21:00 Divalproex Sodium (Depakote) 500 mg BID PO ; Start 07/31/18 at 21:00; Stop 07/31/18 at 21:00; Status DC Fluoxetine HCl (PROzac) 10 mg QHS PO Last administered on 07/31/18at 20:52; Start 07/31/18 at 21:00; Stop 08/01/18 at 15:17; Status DC Home Med (Med Rec Complete!) ASDIRECTED XX ; Start 07/31/18 at 16:00; Stop 07/31/18 at 16:08; Status DC Magnesium Hydroxide (Milk Of Magnesia) 30 ml DAILYPRN PRN PO CONSTIPATION; Start 07/31/18 at 19:00 Olanzapine (ZyPREXA ZYDIS) 10 mg Q4HP PRN PO ANXIETY/AGITATION Last administered on 08/03/18at 16:46; Start 08/03/18 at 12:45 Oxybutynin Chloride (Ditropan Xl) 5 mg BID PO Last administered on 08/26/18at 09:36; Start 08/14/18 at 09:00 Paliperidone (Invega) 3 mg QAM PO Last administered on 08/07/18at 09:24; Start 08/02/18 at 09:00; Stop 08/07/18 at 10:40; Status DC Paliperidone (Invega) 3 mg QHS PO Last administered on 08/06/18at 20:48; Start 08/01/18 at 21:00; Stop 08/07/18 at 10:40; Status DC Risperidone (RisperDAL) 3 mg DAILY PO Last administered on 08/01/18at 09:19; Start 08/01/18 at 09:00; Stop 08/01/18 at 15:17; Status DC Trazodone HCl (Desyrel) 50 mg QHSP PRN PO INSOMNIA Last administered on 08/07/18at 22:28; Start 07/31/18 at 19:00 Allergies Coded Allergies: No Known Allergies (Verified , 08/13/05) WILLIAM SALCEDO DO Aug 26, 2018 11:58 am
[2018-08-26 18:00] VITALS: BP 90/50
[2018-08-27 06:56] VITALS: BP 88/48
[2018-08-27] MEDS: oxyBUTYnin *DITROPAN XL* 5 MG TABCR PO SCH ×2 (09:10→20:49)
[2018-08-27] MEDS: DIVALPROEX 500MG *ER* TAB PO SCH ×2 (09:10→20:49)
--- NOTE | 2018-08-27 16:50 | MHIPN ---
DATE: 08/27/2018 VITAL SIGNS: Temperature 98.0, pulse 64, respirations 16, blood pressure 88/48. CURRENT MEDICATIONS: - Zyprexa Zydis 10 mg every 4 hours as needed - Depakote ER 500 mg twice a day - trazodone 50 mg at bedtime as needed - Invega Sustenna 156 mg intramuscular (IM) monthly HISTORY OF PRESENT ILLNESS: This is a 68-year-old white female with a history of schizophrenia. There is a reference to dementia but it is unclear where this originated. Patient was agitated with staff at the [facility] prior to admission. Patient showed bizarre behavior, covering her hands and face with feces and urine. She is threatening toward her roommate. Patient's schizophrenic condition has improved since being on the Invega Sustenna. Patient reports feeling well. Her appetite is good here on the unit. Patient is sleeping well on the unit. Her concentration is fine. Patient admits to having auditory hallucinations in the past but not at present. She is waiting for placement in an appropriate facility. She has no other complaints. MENTAL STATUS EXAMINATION: Patient is alert and oriented today. Patient recalls three out of three objects at 5 minutes.Abstraction is appropriate. Patient denies current paranoia. No signs of thought disorder. Patient is not hearing voices. Grooming and hygiene appear reasonably good. No body odor noted. She does have good eye contact. She is not depressed, homicidal, or suicidal. No signs of behavior disturbances on the unit. ASSESSMENT: Patient's behavior has improved significantly since being on the antipsychotic treatment regimen. Cognitive disorder appears to have mostly resolved. Will ask staff to clarify dementia diagnosis with PCP/family. DIAGNOSES: 1. Paranoid schizophrenia. PLAN: Continue present management. Staff working on discharge planning. [facility] CENTEREduardo
[2018-08-27 18:00] VITALS: BP 99/58
[2018-08-28 06:40] VITALS: BP 99/50
[2018-08-28] MEDS: DIVALPROEX 500MG *ER* TAB PO SCH ×2 (09:58→20:03)
[2018-08-28] MEDS: oxyBUTYnin *DITROPAN XL* 5 MG TABCR PO SCH ×2 (09:58→20:03)
[2018-08-28 18:00] VITALS: BP 86/48
[2018-08-29 06:43] VITALS: BP 102/51
[2018-08-29] MEDS: DIVALPROEX 500MG *ER* TAB PO SCH ×2 (09:58→20:12)
[2018-08-29] MEDS: oxyBUTYnin *DITROPAN XL* 5 MG TABCR PO SCH ×2 (09:58→20:12)
--- NOTE | 2018-08-29 11:17 | MHIPN ---
DATE: 08/28/2018 VITAL SIGNS: Temperature 97.0, pulse 56, respirations 18, blood pressure 99/50. CURRENT MEDICATION: - Depakote 500 mg twice a day - trazodone 50 mg at bedtime as needed - Invega Sustenna 156 mg IM monthly (last given 08/09/2018) LABORATORY DATA: Valproic acid 60.5 on 08/14/2018. HISTORY OF PRESENT ILLNESS: The patient reports her appetite is good. Sleep patterns are fine. She denies any problems with mood swings. The patient's urinary tract infection that was prominent upon admission has resolved. She still has some bladder issues according to staff. Her behavior is much improved however since being on the antipsychotic medication. She denies any recent paranoia. Her behavior is quite appropriate in the unit. She has no major complaints. MENTAL STATUS EXAMINATION: The patient is again alert and oriented times three today. The patient's proper interpretation is abstract. She recalls three out of three objects at five minutes. Affect appears reasonably good. No signs of depression. She is not homicidal and not suicidal. She denies any current paranoia. She is not hearing any voices. No signs of thought disorder. Grooming and hygiene are reasonably good. The patient has good eye contact. ASSESSMENT: The patient's neurocognitive issues appear to have resolved since being on the unit. DIAGNOSIS: Paranoid schizophrenia. PLAN: Staff working on discharge planning and are reaching out to family and primary care physician to ascertain the origin of the dementia diagnosis.
[2018-08-29 18:43] VITALS: BP 92/52
[2018-08-30 07:01] VITALS: BP 108/59
[2018-08-30] MEDS: DIVALPROEX 500MG *ER* TAB PO SCH ×2 (09:01→20:56)
[2018-08-30] MEDS: oxyBUTYnin *DITROPAN XL* 5 MG TABCR PO SCH ×2 (09:01→20:56)
--- NOTE | 2018-08-30 15:58 | MHIPN ---
DATE: 08/29/2018 VITAL SIGNS: Temperature 98.3, pulse 50, respirations 12, blood pressure 102/51. CURRENT MEDICATIONS: - Depakote 500 mg twice a day - trazodone 50 mg nightly as needed - Invega Sustenna 156 mg intramuscular (IM) monthly, last dose given 08/09/2018 HISTORY OF PRESENT ILLNESS: Patient reports her mood is good, she denies any mood swings. Her appetite is good. She sleeps well at night. Patient does not attend groups, she isolates a lot in her room. She denies any recent psychotic symptoms. Staff contacted her primary care physician office. There is no reference to dementia in their records, but there is a history of a learning disability. Patient hopes to be discharged soon. MENTAL STATUS EXAMINATION: Patient is alert and oriented times three. Affect appears good. She is not depressed. No signs of emmanuel. She denies current psychotic symptoms. She is somewhat guarded, but is not reporting any paranoid ideation. She is not hearing any voices. No signs of thought disorder. Grooming and hygiene appear reasonably good. ASSESSMENT: Old records from her primary care physician show no history of past dementia. It is unclear where this originated, so it will be removed from the official diagnosis. DIAGNOSIS: Paranoid schizophrenia. PLAN: Continue present management. Staff working on discharge planning to the community. Repeat valproic acid level.
[2018-08-30 18:00] VITALS: BP 90/50
[2018-08-31 06:36] VITALS: BP 110/50
--- NOTE | 2018-08-31 08:09 | MHIPN ---
DATE: 08/30/2018 VITAL SIGNS: Temperature 98, pulse 74, respirations 14, blood pressure 108/59. CURRENT MEDICATIONS: - Depakote 500 mg twice a day - trazodone 50 mg nightly as needed - Invega Sustenna 156 mg intramuscular (IM) monthly, last dose given 08/09/2018 LABORATORY DATA: Valproic acid level 45.8, previous level was 60.5 on 08/14/2018. HISTORY OF PRESENT ILLNESS: Patient reports she is doing well today. Patient has been evaluated for housing options. Results are pending. She denies any recent psychotic symptoms. Patient isolates in her room for much of the day but does socialize with her room mate and a select few. She has no other complaints. MENTAL STATUS EXAMINATION: Patient is alert and oriented times three. Insight and judgment appears good today. Affect is bright and no signs of depression. She is no suicidal or homicidal. No paranoia noted. She denies hearing any voices. No signs of thought disorder. Grooming and hygiene remain good. ASSESSMENT: Patient appears stable. Patient's valproic acid level has dropped somewhat but still appears therapeutic. No need to increase her Depakote. DIAGNOSIS: Paranoid schizophrenia, stable. PLAN: Continue present management. Staff working on discharge planning
[2018-08-31] MEDS: oxyBUTYnin *DITROPAN XL* 5 MG TABCR PO SCH ×2 (09:07→22:09)
[2018-08-31] MEDS: DIVALPROEX 500MG *ER* TAB PO SCH ×2 (09:07→22:10)
[2018-08-31 18:00] VITALS: BP 80/40
[2018-09-01 06:25] VITALS: BP 122/58
[2018-09-01] MEDS: DIVALPROEX 500MG *ER* TAB PO SCH ×2 (08:58→21:14)
[2018-09-01] MEDS: oxyBUTYnin *DITROPAN XL* 5 MG TABCR PO SCH ×2 (08:58→21:14)
[2018-09-01 18:31] VITALS: BP 94/50
[2018-09-02 06:22] VITALS: BP 109/55
[2018-09-02] MEDS: oxyBUTYnin *DITROPAN XL* 5 MG TABCR PO SCH ×2 (09:06→20:53)
[2018-09-02] MEDS: DIVALPROEX 500MG *ER* TAB PO SCH ×2 (09:06→20:53)
[2018-09-02 18:00] VITALS: BP 105/54
[2018-09-03 06:53] VITALS: BP 87/45
[2018-09-03] MEDS: oxyBUTYnin *DITROPAN XL* 5 MG TABCR PO SCH ×2 (09:26→20:48)
[2018-09-03] MEDS: DIVALPROEX 500MG *ER* TAB PO SCH ×2 (09:26→20:48)
--- NOTE | 2018-09-03 15:34 | MHIPN ---
DATE: 09/03/2018 VITAL SIGNS: Temperature 98.0, pulse 60, respiratory rate 14, blood pressure 87/45. CURRENT MEDICATIONS: - Depakote ER 500 mg twice a day - trazodone 50 mg at bedtime as needed - Invega Sustenna intramuscular (IM) every month HISTORY OF PRESENT ILLNESS: The patient has no complaints today. She is waiting patiently for the [facility] executive secretary social welfare to visit. This is apparently scheduled for tomorrow. Her appetite is good. She sleeps well at night. She does tend to isolate in her room. She does not interact with other patients aside from her roommate. Otherwise, her behavior appears quite appropriate. MENTAL STATUS EXAMINATION: The patient is alert and oriented. Affect appears good. No signs of depression. She is not a danger to self or others. She is somewhat guarded but no overt paranoid ideation. She denies hearing any voices. No signs of thought disorder. Grooming and hygiene remain fairly good. DIAGNOSIS: Schizophrenia, paranoid type. PLAN: Continue present management. Staff working on discharge planning.
[2018-09-03 18:00] VITALS: BP 113/62
--- NOTE | 2018-09-03 20:35 | MHIPN ---
DATE: 09/02/2018 VITAL SIGNS: Temperature 98.1, pulse 74, respirations 14, blood pressure 109/55. CURRENT MEDICATIONS: - Depakote 500 mg twice a day - trazodone 50 mg at bedtime as needed - Invega Sustenna 156 mg intramuscular monthly. Next due September 08, 2018 HISTORY OF PRESENT ILLNESS: The patient has no complaints. She is looking forward to upcoming visits per social work staff regarding various housing options. She had a good weekend. She enjoyed various activities. Appetite is good. She sleeps well at night. Mood has been stable. She is contemplating getting a car upon discharge. MENTAL STATUS EXAMINATION: Mood and affect appear good. She is not depressed. No signs of anxiety. She is not suicidal. She is not homicidal. She denies hearing any voices. No signs of paranoia or thought disorder. Grooming and hygiene appear reasonably good. ASSESSMENT: The patient's condition is stable. She is doing well on her psychotropics. No signs of parkinsonian symptoms. DIAGNOSIS: Schizophrenia paranoid type. PLAN: Continue her present management. The patient will get another Invega Sustenna injection later in the week. Staff working on housing options.
[2018-09-04 06:26] VITALS: BP 114/65
[2018-09-04] MEDS: DIVALPROEX 500MG *ER* TAB PO SCH ×2 (09:13→20:28)
[2018-09-04] MEDS: oxyBUTYnin *DITROPAN XL* 5 MG TABCR PO SCH ×2 (09:14→20:28)
--- NOTE | 2018-09-04 16:09 | MHIPN ---
DATE: 09/04/2018 VITAL SIGNS: Temperature 99.2, pulse 51, respirations 15, blood pressure 114/65. CURRENT MEDICATIONS: - Depakote 500 mg twice a day - trazodone 50 mg at night as needed - Invega Sustenna subcutaneously monthly HISTORY OF PRESENT ILLNESS: The patient reports that she is doing good today. She has no complaints. She met with the social services technician earlier today regarding possible planning care and placement. She is excited about this option. Her appetite is good. She sleeps well at night. No outbursts in the unit. She does isolate to her room, interacting minimally with her peers. No other complaints. MENTAL STATUS EXAMINATION: The patient is alert and oriented today. No signs of depression. Mood and affect appear quite good. She has good eye contact. She is not homicidal or suicidal. She is not hearing any voices. No signs of psychosis. Grooming and hygiene are good. No signs of organicity. ASSESSMENT: The patient is doing well on current psychotropics. DIAGNOSIS: Schizophrenia, paranoid type. PLAN: Continue present management. The patient is due for Sustenna injection later in the week.
[2018-09-04 18:00] VITALS: BP 94/54
[2018-09-05 06:25] VITALS: BP 95/48
[2018-09-05] MEDS: DIVALPROEX 500MG *ER* TAB PO SCH ×2 (08:25→21:56)
[2018-09-05] MEDS: oxyBUTYnin *DITROPAN XL* 5 MG TABCR PO SCH ×2 (08:25→21:56)
--- NOTE | 2018-09-05 14:43 | MHIPN ---
DATE: 09/05/2018 VITAL SIGNS: Temperature 98.3, pulse 54, respirations 14, blood pressure 95/48. CURRENT MEDICATIONS: - Depakote 500 mg twice a day - trazodone 50 mg at night - Invega Sustenna 156 mg intramuscularly monthly, due tomorrow HISTORY OF PRESENT ILLNESS: The patient reports that she is doing well. She has no complaints. Appetite is good. She is sleeping well at night. The patient does isolate in her room. She avoids peers. She rests comfortably throughout the daytime. No behavioral issues or outbursts. The patient is seen for an evaluation by the primary care provider yesterday. The case has been evaluated. She is going to move out of the [facility] for this program. MENTAL STATUS EXAMINATION: The patient is alert, oriented and cooperative. The patient is not depressed. She is not suicidal or homicidal. Affect appears reasonably good. The patient denies hearing voices. No signs of paranoia. Grooming and hygiene appear reasonably good. ASSESSMENT: The patient appears stable and ready for discharge when housing is obtained. DIAGNOSIS: Schizophrenia, paranoid type. PLAN: Continue present management. The patient is due for Sustenna injection tomorrow.
[2018-09-05 18:00] VITALS: BP 110/60
[2018-09-06 06:56] VITALS: BP 164/65
[2018-09-06] MEDS: oxyBUTYnin *DITROPAN XL* 5 MG TABCR PO SCH ×2 (09:12→20:47)
[2018-09-06] MEDS: DIVALPROEX 500MG *ER* TAB PO SCH ×2 (09:12→20:47)
[2018-09-06] MEDS ORDERED: PALIPERIDONE PALMITATE 156 MG/1ML INJ(INVEGA SUSTENNA)(J2426) IM ONE (09:30)
--- NOTE | 2018-09-06 14:35 | MHIPN ---
DATE: 09/06/2019 VITAL SIGNS Temperature 98.3, pulse 54, respirations 18, blood pressure 164/65 . CURRENT MEDICATIONS: - paliperidone 156 mg intramuscularly monthly, given today - Depakote 500 mg twice a day - trazodone 50 mg at night as needed HISTORY OF PRESENT ILLNESS: The patient is pleased to report that she was accepted for the family care program up in the [facility], it might take a week or two for an opening to occur. She feels positive and hopeful about this discharge plan. The patient had asked for a pass tomorrow to go [employer] with her brother. Staff report that passes are not allowed off the unit. The patient states that her mood is good. She is hopeful about the future. She got her monthly injection earlier today, it was well tolerated. she has had no recent psychotic symptoms. The patient was informed that today is my last day and that Dr. Wilson will return next week. MENTAL STATUS EXAMINATION: The patient is alert, oriented and cooperative. Affect appears good. She is not depressed or suicidal. The patient denies any recent psychotic symptoms. Grooming and hygiene are reasonably good. ASSESSMENT: The patient remains stable. DIAGNOSIS: Schizophrenia, paranoid type, stable. PLAN: Continue present management. Dr. Wilson is returning next week. PHILLIP
[2018-09-06 18:00] VITALS: BP 98/54
[2018-09-07 06:53] VITALS: BP 88/48
[2018-09-07] MEDS: DIVALPROEX 500MG *ER* TAB PO SCH ×2 (09:15→21:59)
[2018-09-07] MEDS: oxyBUTYnin *DITROPAN XL* 5 MG TABCR PO SCH ×2 (09:15→22:00)
[2018-09-07 18:06] VITALS: BP 92/52
[2018-09-08 06:45] VITALS: BP 92/40
[2018-09-08] MEDS: oxyBUTYnin *DITROPAN XL* 5 MG TABCR PO SCH ×2 (11:11→22:22)
[2018-09-08] MEDS: DIVALPROEX 500MG *ER* TAB PO SCH ×2 (11:12→22:22)
[2018-09-08 18:00] VITALS: BP 102/47
[2018-09-09 06:58] VITALS: BP 90/46
[2018-09-09] MEDS: DIVALPROEX 500MG *ER* TAB PO SCH ×2 (09:41→20:57)
[2018-09-09] MEDS: oxyBUTYnin *DITROPAN XL* 5 MG TABCR PO SCH ×2 (09:41→20:57)
--- NOTE | 2018-09-09 10:17 | MHIPNPDOC ---
[facility] Progress Note Progress Note DATE OF SERVICE: 09/09/18 HISTORY: Patient is a 68 -year-old , female, with a history of moderate dementia, schizophrenia who was sent to [facility] ED from [facility] due to pt being combative and assaultive toward staff there, threatening 89y/o roommate, and licking hands covered in feces. Recently d/c from medical floor for treatment of hypotension and seen by Dr. Renato becker and diagnosed with schizophrenia. Per nursing staff, when pt seen today, asked if she was incontinent of feces and pt proceeded to put her hands down the back of her pants then smell and lick her had stating "no I'm clean" then went on to like a bar of soap. When I attempted to see pt in her room she looked at me and then looked down not cooperating with interview. History gathered from chart review. VITAL SIGNS: See below. NEW TEST RESULTS: depakote lvl - 60.5 therapeutic CURRENT MEDICATIONS: See below. MENTAL STATUS EXAMINATION: No change from yesterday General Appearance: clean, dressing in new clothes and wearing earrings, looks nice, walking to phone with some difficulty (refused help) in milieu. doesn't smell of urine today, walking with walker Build: average Demeanor: pleasant Eye Contact: good Activity: average Behavior: cooperative, calm Speech: reg rate/rhythm/volume Mood: euthymic, bright Mood "good" Affect: appropriate, calm, cooperative Thought Process: coherent, more linear and logical to conversation Thought Content (Delusions): none reported Thought Content (Other): none reported Thought Content (Aggressive): none reported Perception (Hallucinations): none reported Perception (Other): none reported Cognition (Impairment of): improved orientation, attention/concentration, a bility to abstract Cognition(Intelligence Est.): other (demented) Oriented: Awake, Alert, oriented Insight: limited Judgment: limited Psychosis: none reported DIAGNOSES: paranoid schizophrenia moderate cognitive d/o ASSESSMENT:Roughly no change from last week. Pt seen in milieu walking with walker to [facility] room. She is bright and states her mood is good. Per nursing pt is attending to her own personal hygiene care well and keeping herself dry of urine. Pt is taking sponge baths on her own daily although doesn't smell of urine. Tolerating oxybutin 5mg bid and incontinence is improved although still has occasional incontinence. Will continue to encourage daily hygiene. Baseline isolative to room most likely due to difficulty walking. Attention is good. Able to ask appropriate questions and show some level of understanding during interview. Compliant with all oral meds and appears they are beneficial and she's tolerating them well. Pt took invega sustenna 234mg loading dose for compliance 08/06/18 and 156mg maintenance dose for 08/09/18 and tolerating the im med well, appears beneficial, and denies side effects. Accepted to [facility] and awaiting available bed. MANAGEMENT PLAN: continue current plan Medications: invega sustenna 234mg im 08/06/18 invega sustenna 156mg im 08/09/18 depakote er 500mg bid. oxybutin 5mg bid for incontinence TIME SPENT: 30 minutes. Vital Signs Vital Signs Date Time Temp Pulse Resp B/P (MAP) Pulse Ox O2 Delivery O2 Flow Rate FiO2 09/09/18 06:58 98.3 52 18 90/46 (61) 09/05/18 06:25 Room Air Current Medications Current Medications Acetaminophen (Tylenol Tab) 650 mg Q6HP PRN PO HEADACHE or DISCOMFORT; Start 07/31/18 at 19:00 Al Hydrox/Mg Hydrox/Simethicone (Mylanta) 30 ml Q4HP PRN PO HEARTBURN/INDIGESTION; Start 07/31/18 at 19:00 Aripiprazole (AbiLIFY) 2 mg QHS PO Last administered on 07/31/18at 20:53; Start 07/31/18 at 21:00; Stop 08/01/18 at 15:17; Status DC Aripiprazole (AbiLIFY) 5 mg QAM PO Last administered on 08/01/18at 09:19; Start 08/01/18 at 09:00; Stop 08/01/18 at 15:17; Status DC Cefdinir (Omnicef) 300 mg BID PO Last administered on 08/08/18at 21:25; Start 08/02/18 at 09:00; Stop 08/08/18 at 21:01; Status DC Divalproex Sodium (Depakote Er) 500 mg BID PO Last administered on 09/09/18at 09:41; Start 07/31/18 at 21:00 Divalproex Sodium (Depakote) 500 mg BID PO ; Start 07/31/18 at 21:00; Stop 07/31/18 at 21:00; Status DC Fluoxetine HCl (PROzac) 10 mg QHS PO Last administered on 07/31/18at 20:52; Start 07/31/18 at 21:00; Stop 08/01/18 at 15:17; Status DC Home Med (Med Rec Complete!) ASDIRECTED XX ; Start 07/31/18 at 16:00; Stop 07/31/18 at 16:08; Status DC Magnesium Hydroxide (Milk Of Magnesia) 30 ml DAILYPRN PRN PO CONSTIPATION; Start 07/31/18 at 19:00 Miscellaneous (Unresolved Clarification Entry) SEE LABEL COMMENTS DAILY XX ; Start 09/02/18 at 09:00; Stop 09/02/18 at 09:52; Status DC Miscellaneous (Unresolved Clarification Entry) SEE LABEL COMMENTS DAILY XX ; Start 08/29/18 at 09:00; Stop 08/30/18 at 12:30; Status DC Miscellaneous (Unresolved Clarification Entry) SEE LABEL COMMENTS DAILY XX ; Start 09/01/18 at 09:00; Stop 09/02/18 at 07:17; Status DC Olanzapine (ZyPREXA ZYDIS) 10 mg Q4HP PRN PO ANXIETY/AGITATION Last administered on 08/03/18at 16:46; Start 08/03/18 at 12:45; Stop 09/02/18 at 09:52; Status DC Oxybutynin Chloride (Ditropan Xl) 5 mg BID PO Last administered on 09/09/18at 09:41; Start 08/14/18 at 09:00 Paliperidone (Invega) 3 mg QAM PO Last administered on 08/07/18at 09:24; Start 08/02/18 at 09:00; Stop 08/07/18 at 10:40; Status DC Paliperidone (Invega) 3 mg QHS PO Last administered on 08/06/18at 20:48; Start 08/01/18 at 21:00; Stop 08/07/18 at 10:40; Status DC Risperidone (RisperDAL) 3 mg DAILY PO Last administered on 08/01/18at 09:19; Start 08/01/18 at 09:00; Stop 08/01/18 at 15:17; Status DC Trazodone HCl (Desyrel) 50 mg QHSP PRN PO INSOMNIA Last administered on 08/07/18at 22:28; Start 07/31/18 at 19:00 Allergies Coded Allergies: No Known Allergies (Verified , 08/13/05) WILLIAM SALCEDO DO Sep 09, 2018 10:17 am
[2018-09-09 18:00] VITALS: BP_SYST 115; BP_SYST 80; BP_DIAS 45; BP_DIAS 70
[2018-09-10 06:41] VITALS: BP 100/54
[2018-09-10] MEDS: oxyBUTYnin *DITROPAN XL* 5 MG TABCR PO SCH ×2 (09:14→21:45)
[2018-09-10] MEDS: DIVALPROEX 500MG *ER* TAB PO SCH ×2 (09:14→21:44)
--- NOTE | 2018-09-10 09:52 | MHIPNPDOC ---
[facility] Progress Note Progress Note DATE OF SERVICE: 09/10/18 HISTORY: Patient is a 68 -year-old , female, with a history of moderate dementia, schizophrenia who was sent to [facility] ED from [facility] due to pt being combative and assaultive toward staff there, threatening 91y/o roommate, and licking hands covered in feces. Recently d/c from medical floor for treatment of hypotension and seen by Dr. Renato becker and diagnosed with schizophrenia. Per nursing staff, when pt seen today, asked if she was incontinent of feces and pt proceeded to put her hands down the back of her pants then smell and lick her had stating "no I'm clean" then went on to like a bar of soap. When I attempted to see pt in her room she looked at me and then looked down not cooperating with interview. History gathered from chart review. VITAL SIGNS: See below. NEW TEST RESULTS: depakote lvl - 60.5 therapeutic CURRENT MEDICATIONS: See below. MENTAL STATUS EXAMINATION: No change from yesterday General Appearance: clean, dressing in new clothes and wearing earrings, looks nice, walking to phone with some difficulty (refused help) in milieu. doesn't smell of urine today, walking with walker Build: average Demeanor: pleasant Eye Contact: good Activity: average Behavior: cooperative, calm Speech: reg rate/rhythm/volume Mood: euthymic, bright Mood "good" Affect: appropriate, calm, cooperative Thought Process: coherent, more linear and logical to conversation Thought Content (Delusions): none reported Thought Content (Other): none reported Thought Content (Aggressive): none reported Perception (Hallucinations): none reported Perception (Other): none reported Cognition (Impairment of): improved orientation, attention/concentration, a bility to abstract Cognition(Intelligence Est.): other (demented) Oriented: Awake, Alert, oriented Insight: limited Judgment: limited Psychosis: none reported DIAGNOSES: paranoid schizophrenia moderate cognitive d/o ASSESSMENT:Roughly no change from last week. Pt seen in day room watching tv and eating breakfast with peers. She is bright and states her mood is good. Per nursing pt is attending to her own personal hygiene care well and keeping herself dry of urine. Pt is taking sponge baths on her own daily although doesn't smell of urine. Tolerating oxybutin 5mg bid and incontinence is improved although still has occasional incontinence. Will continue to encourage daily hygiene. Baseline isolative to room most likely due to difficulty walking. Attention is good. Able to ask appropriate questions and show some level of understanding during interview. Compliant with all oral meds and appears they are beneficial and she's tolerating them well. Pt took invega sustenna monthly dose yesterday and tolerated it well, appears beneficial, and denies side effects. [facility] and awaiting available bed. MANAGEMENT PLAN: continue current plan Medications: invega sustenna 234mg im 09/09/18 depakote er 500mg bid. oxybutin 5mg bid for incontinence TIME SPENT: 30 minutes. Vital Signs Vital Signs Date Time Temp Pulse Resp B/P (MAP) Pulse Ox O2 Delivery O2 Flow Rate FiO2 09/10/18 06:41 97.3 66 14 100/54 (69) 09/05/18 06:25 Room Air Current Medications Current Medications Acetaminophen (Tylenol Tab) 650 mg Q6HP PRN PO HEADACHE or DISCOMFORT; Start 07/31/18 at 19:00 Al Hydrox/Mg Hydrox/Simethicone (Mylanta) 30 ml Q4HP PRN PO HEARTBURN/INDIGE STION; Start 07/31/18 at 19:00 Aripiprazole (AbiLIFY) 2 mg QHS PO Last administered on 07/31/18at 20:53; Start 07/31/18 at 21:00; Stop 08/01/18 at 15:17; Status DC Aripiprazole (AbiLIFY) 5 mg QAM PO Last administered on 08/01/18at 09:19; Start 08/01/18 at 09:00; Stop 08/01/18 at 15:17; Status DC Cefdinir (Omnicef) 300 mg BID PO Last administered on 08/08/18at 21:25; Start 08/02/18 at 09:00; Stop 08/08/18 at 21:01; Status DC Divalproex Sodium (Depakote Er) 500 mg BID PO Last administered on 09/10/18at 09:14; Start 07/31/18 at 21:00 Divalproex Sodium (Depakote) 500 mg BID PO ; Start 07/31/18 at 21:00; Stop 07/31/18 at 21:00; Status DC Fluoxetine HCl (PROzac) 10 mg QHS PO Last administered on 07/31/18at 20:52; Start 07/31/18 at 21:00; Stop 08/01/18 at 15:17; Status DC Home Med (Med Rec Complete!) ASDIRECTED XX ; Start 07/31/18 at 16:00; Stop 07/31/18 at 16:08; Status DC Magnesium Hydroxide (Milk Of Magnesia) 30 ml DAILYPRN PRN PO CONSTIPATION; Start 07/31/18 at 19:00 Miscellaneous (Unresolved Clarification Entry) SEE LABEL COMMENTS DAILY XX ; Start 09/02/18 at 09:00; Stop 09/02/18 at 09:52; Status DC Miscellaneous (Unresolved Clarification Entry) SEE LABEL COMMENTS DAILY XX ; Start 08/29/18 at 09:00; Stop 08/30/18 at 12:30; Status DC Miscellaneous (Unresolved Clarification Entry) SEE LABEL COMMENTS DAILY XX ; Start 09/01/18 at 09:00; Stop 09/02/18 at 07:17; Status DC Olanzapine (ZyPREXA ZYDIS) 10 mg Q4HP PRN PO ANXIETY/AGITATION Last administered on 08/03/18at 16:46; Start 08/03/18 at 12:45; Stop 09/02/18 at 09:52; Status DC Oxybutynin Chloride (Ditropan Xl) 5 mg BID PO Last administered on 09/10/18at 09:14; Start 08/14/18 at 09:00 Paliperidone (Invega) 3 mg QAM PO Last administered on 08/07/18at 09:24; Start 08/02/18 at 09:00; Stop 08/07/18 at 10:40; Status DC Paliperidone (Invega) 3 mg QHS PO Last administered on 08/06/18at 20:48; Start 08/01/18 at 21:00; Stop 08/07/18 at 10:40; Status DC Paliperidone Palmitate (Invega Sustenna) 234 mg Q30D IM ; Start 10/09/18 at 09:00 Risperidone (RisperDAL) 3 mg DAILY PO Last administered on 08/01/18at 09:19; Start 08/01/18 at 09:00; Stop 08/01/18 at 15:17; Status DC Trazodone HCl (Desyrel) 50 mg QHSP PRN PO INSOMNIA Last administered on 08/07/18at 22:28; Start 07/31/18 at 19:00 Allergies Coded Allergies: No Known Allergies (Verified , 08/13/05) WILLIAM SALCEDO DO Sep 10, 2018 9:52 am
[2018-09-10 18:00] VITALS: BP 84/46
[2018-09-11 06:41] VITALS: BP 93/51
--- NOTE | 2018-09-11 09:05 | MHIPNPDOC ---
[facility] Progress Note Progress Note DATE OF SERVICE: 09/11/18 HISTORY: Patient is a 68 -year-old , female, with a history of moderate dementia, schizophrenia who was sent to [facility] ED from [place] [facility] due to pt being combative and assaultive toward staff there, threatening 91y/o roommate, and licking hands covered in feces. Recently d/c from medical floor for treatment of hypotension and seen by Dr. Renato becker and diagnosed with schizophrenia. Per nursing staff, when pt seen today, asked if she was incontinent of feces and pt proceeded to put her hands down the back of her pants then smell and lick her had stating "no I'm clean" then went on to like a bar of soap. When I attempted to see pt in her room she looked at me and then looked down not cooperating with interview. History gathered from chart review. VITAL SIGNS: See below. NEW TEST RESULTS: depakote lvl - 60.5 therapeutic CURRENT MEDICATIONS: See below. MENTAL STATUS EXAMINATION: No change from yesterday General Appearance: clean, dressing in new clothes and wearing earrings, looks nice, walking to phone with some difficulty (refused help) in milieu. doesn't smell of urine today, walking with walker Build: average Demeanor: pleasant Eye Contact: good Activity: average Behavior: cooperative, calm Speech: reg rate/rhythm/volume Mood: euthymic, bright Mood "good" Affect: appropriate, calm, cooperative Thought Process: coherent, more linear and logical to conversation Thought Content (Delusions): none reported Thought Content (Other): none reported Thought Content (Aggressive): none reported Perception (Hallucinations): none reported Perception (Other): none reported Cognition (Impairment of): improved orientation, attention/concentration, a bility to abstract Cognition(Intelligence Est.): other (demented) Oriented: Awake, Alert, oriented Insight: limited Judgment: limited Psychosis: none reported DIAGNOSES: paranoid schizophrenia moderate cognitive d/o ASSESSMENT:Roughly no change from yesterday. Pt seen in her room getting ready for the day. She is bright and states her mood is good. Per nursing pt is attending to her own personal hygiene care well and keeping herself dry of urine. Pt is taking sponge baths on her own daily although doesn't smell of urine. Tolerating oxybutin 5mg bid and incontinence is improved although still has occasional incontinence. Will continue to encourage daily hygiene. Baseline isolative to room most likely due to difficulty walking. Attention is good. Able to ask appropriate questions and show some level of understanding during interview. Compliant with all oral meds and appears they are beneficial and she's tolerating them well. Pt took invega sustenna monthly dose yesterday and tolerated it well, appears beneficial, and denies side effects. No available first floor beds at [facility] so no longer accepted. Will start arely sawant into long-term care. MANAGEMENT PLAN: continue current plan Medications: invega sustenna 234mg im 09/09/18 depakote er 500mg bid. oxybutin 5mg bid for incontinence TIME SPENT: 30 minutes. Vital Signs Vital Signs Date Time Temp Pulse Resp B/P (MAP) Pulse Ox O2 Delivery O2 Flow Rate FiO2 09/11/18 06:41 98.2 61 16 93/51 (65) 09/05/18 06:25 Room Air Current Medications Current Medications Acetaminophen (Tylenol Tab) 650 mg Q6HP PRN PO HEADACHE or DISCOMFORT; Start 07/31/18 at 19:00 Al Hydrox/Mg Hydrox/Simethicone (Mylanta) 30 ml Q4HP PRN PO HEARTBURN/INDIGESTION; Start 07/31/18 at 19:00 Aripiprazole (AbiLIFY) 2 mg QHS PO Last administered on 07/31/18at 20:53; Start 07/31/18 at 21:00; Stop 08/01/18 at 15:17; Status DC Aripiprazole (AbiLIFY) 5 mg QAM PO Last administered on 08/01/18at 09:19; Start 08/01/18 at 09:00; Stop 08/01/18 at 15:17; Status DC Cefdinir (Omnicef) 300 mg BID PO Last administered on 08/08/18at 21:25; Start 08/02/18 at 09:00; Stop 08/08/18 at 21:01; Status DC Divalproex Sodium (Depakote Er) 500 mg BID PO Last administered on 09/10/18at 21:44; Start 07/31/18 at 21:00 Divalproex Sodium (Depakote) 500 mg BID PO ; Start 07/31/18 at 21:00; Stop 07/31/18 at 21:00; Status DC Fluoxetine HCl (PROzac) 10 mg QHS PO Last administered on 07/31/18at 20:52; Start 07/31/18 at 21:00; Stop 08/01/18 at 15:17; Status DC Home Med (Med Rec Complete!) ASDIRECTED XX ; Start 07/31/18 at 16:00; Stop 07/31/18 at 16:08; Status DC Magnesium Hydroxide (Milk Of Magnesia) 30 ml DAILYPRN PRN PO CONSTIPATION; Start 07/31/18 at 19:00 Miscellaneous (Unresolved Clarification Entry) SEE LABEL COMMENTS DAILY XX ; Start 09/02/18 at 09:00; Stop 09/02/18 at 09:52; Status DC Miscellaneous (Unresolved Clarification Entry) SEE LABEL COMMENTS DAILY XX ; Start 08/29/18 at 09:00; Stop 08/30/18 at 12:30; Status DC Miscellaneous (Unresolved Clarification Entry) SEE LABEL COMMENTS DAILY XX ; Start 09/01/18 at 09:00; Stop 09/02/18 at 07:17; Status DC Olanzapine (ZyPREXA ZYDIS) 10 mg Q4HP PRN PO ANXIETY/AGITATION Last administered on 08/03/18at 16:46; Start 08/03/18 at 12:45; Stop 09/02/18 at 09:52; Status DC Oxybutynin Chloride (Ditropan Xl) 5 mg BID PO Last administered on 09/10/18at 21:45; Start 08/14/18 at 09:00 Paliperidone (Invega) 3 mg QAM PO Last administered on 08/07/18at 09:24; Start 08/02/18 at 09:00; Stop 08/07/18 at 10:40; Status DC Paliperidone (Invega) 3 mg QHS PO Last administered on 08/06/18at 20:48; Start 08/01/18 at 21:00; Stop 08/07/18 at 10:40; Status DC Paliperidone Palmitate (Invega Sustenna) 234 mg Q30D IM ; Start 10/09/18 at 09:00 Risperidone (RisperDAL) 3 mg DAILY PO Last administered on 08/01/18at 09:19; Start 08/01/18 at 09:00; Stop 08/01/18 at 15:17; Status DC Trazodone HCl (Desyrel) 50 mg QHSP PRN PO INSOMNIA Last administered on 08/07/18at 22:28; Start 07/31/18 at 19:00 Allergies Coded Allergies: No Known Allergies (Verified , 08/13/05) WILLIAM SALCEDO DO Sep 11, 2018 9:05 am
[2018-09-11] MEDS: oxyBUTYnin *DITROPAN XL* 5 MG TABCR PO SCH ×2 (09:11→20:54)
[2018-09-11] MEDS: DIVALPROEX 500MG *ER* TAB PO SCH ×2 (09:11→20:54)
[2018-09-11 18:00] VITALS: BP 93/53
[2018-09-12 06:47] VITALS: BP 91/52
--- NOTE | 2018-09-12 08:46 | MHIPNPDOC ---
[facility] Progress Note Progress Note DATE OF SERVICE: 09/12/18 HISTORY: Patient is a 68 -year-old , female, with a history of moderate dementia, schizophrenia who was sent to [facility] ED from [place] [facility] due to pt being combative and assaultive toward staff there, threatening 91y/o roommate, and licking hands covered in feces. Recently d/c from medical floor for treatment of hypotension and seen by Dr. Renato becker and diagnosed with schizophrenia. Per nursing staff, when pt seen today, asked if she was incontinent of feces and pt proceeded to put her hands down the back of her pants then smell and lick her had stating "no I'm clean" then went on to like a bar of soap. When I attempted to see pt in her room she looked at me and then looked down not cooperating with interview. History gathered from chart review. VITAL SIGNS: See below. NEW TEST RESULTS: depakote lvl - 60.5 therapeutic CURRENT MEDICATIONS: See below. MENTAL STATUS EXAMINATION: No change from yesterday General Appearance: clean, dressing in new clothes and wearing earrings, looks nice, walking to phone with some difficulty (refused help) in milieu. doesn't smell of urine today, walking with walker Build: average Demeanor: pleasant Eye Contact: good Activity: average Behavior: cooperative, calm Speech: reg rate/rhythm/volume Mood: euthymic, bright Mood "good" Affect: appropriate, calm, cooperative Thought Process: coherent, more linear and logical to conversation Thought Content (Delusions): none reported Thought Content (Other): none reported Thought Content (Aggressive): none reported Perception (Hallucinations): none reported Perception (Other): none reported Cognition (Impairment of): improved orientation, attention/concentration, a bility to abstract Cognition(Intelligence Est.): other (demented) Oriented: Awake, Alert, oriented Insight: limited Judgment: limited Psychosis: none reported DIAGNOSES: paranoid schizophrenia moderate cognitive d/o ASSESSMENT:Roughly no change from yesterday. Pt seen in her room getting ready for the day. She is bright and states her mood is good. Per nursing pt is attending to her own personal hygiene care well and keeping herself dry of urine. Pt is taking sponge baths on her own daily although doesn't smell of urine. Tolerating oxybutin 5mg bid and incontinence is improved although still has occasional incontinence. Will continue to encourage daily hygiene. Baseline isolative to room most likely due to difficulty walking. Attention is good. Able to ask appropriate questions and show some level of understanding during interview. Compliant with all oral meds and appears they are beneficial and she's tolerating them well. Pt took invega sustenna monthly dose yesterday and tolerated it well, appears beneficial, and denies side effects. Possible d/c to long-term residential care at [facility]. Will follow-up with d/c process planner. MANAGEMENT PLAN: continue current plan Medications: invega sustenna 234mg im 09/09/18 depakote er 500mg bid. oxybutin 5mg bid for incontinence TIME SPENT: 30 minutes. Vital Signs Vital Signs Date Time Temp Pulse Resp B/P (MAP) Pulse Ox O2 Delivery O2 Flow Rate FiO2 09/12/18 06:47 98.2 52 12 91/52 (65) Room Air Current Medications Current Medications Acetaminophen (Tylenol Tab) 650 mg Q6HP PRN PO HEADACHE or DISCOMFORT; Start 07/31/18 at 19:00 Al Hydrox/Mg Hydrox/Simethicone (Mylanta) 30 ml Q4HP PRN PO HEARTBURN/INDIGESTION; Start 07/31/18 at 19:00 Aripiprazole (AbiLIFY) 2 mg QHS PO Last administered on 07/31/18at 20:53; Start 07/31/18 at 21:00; Stop 08/01/18 at 15:17; Status DC Aripiprazole (AbiLIFY) 5 mg QAM PO Last administered on 08/01/18at 09:19; Start 08/01/18 at 09:00; Stop 08/01/18 at 15:17; Status DC Cefdinir (Omnicef) 300 mg BID PO Last administered on 08/08/18at 21:25; Start 08/02/18 at 09:00; Stop 08/08/18 at 21:01; Status DC Divalproex Sodium (Depakote Er) 500 mg BID PO Last administered on 09/11/18at 20:54; Start 07/31/18 at 21:00 Divalproex Sodium (Depakote) 500 mg BID PO ; Start 07/31/18 at 21:00; Stop 07/31/18 at 21:00; Status DC Fluoxetine HCl (PROzac) 10 mg QHS PO Last administered on 07/31/18at 20:52; Start 07/31/18 at 21:00; Stop 08/01/18 at 15:17; Status DC Home Med (Med Rec Complete!) ASDIRECTED XX ; Start 07/31/18 at 16:00; Stop 07/31/18 at 16:08; Status DC Magnesium Hydroxide (Milk Of Magnesia) 30 ml DAILYPRN PRN PO CONSTIPATION; Start 07/31/18 at 19:00 Miscellaneous (Unresolved Clarification Entry) SEE LABEL COMMENTS DAILY XX ; Start 09/02/18 at 09:00; Stop 09/02/18 at 09:52; Status DC Miscellaneous (Unresolved Clarification Entry) SEE LABEL COMMENTS DAILY XX ; Start 08/29/18 at 09:00; Stop 08/30/18 at 12:30; Status DC Miscellaneous (Unresolved Clarification Entry) SEE LABEL COMMENTS DAILY XX ; Start 09/01/18 at 09:00; Stop 09/02/18 at 07:17; Status DC Olanzapine (ZyPREXA ZYDIS) 10 mg Q4HP PRN PO ANXIETY/AGITATION Last administered on 08/03/18at 16:46; Start 08/03/18 at 12:45; Stop 09/02/18 at 09:52; Status DC Oxybutynin Chloride (Ditropan Xl) 5 mg BID PO Last administered on 09/11/18at 20:54; Start 08/14/18 at 09:00 Paliperidone (Invega) 3 mg QAM PO Last administered on 08/07/18at 09:24; Start 08/02/18 at 09:00; Stop 08/07/18 at 10:40; Status DC Paliperidone (Invega) 3 mg QHS PO Last administered on 08/06/18at 20:48; Start 08/01/18 at 21:00; Stop 08/07/18 at 10:40; Status DC Paliperidone Palmitate (Invega Sustenna) 234 mg Q30D IM ; Start 10/09/18 at 09:00 Risperidone (RisperDAL) 3 mg DAILY PO Last administered on 08/01/18at 09:19; Start 08/01/18 at 09:00; Stop 08/01/18 at 15:17; Status DC Trazodone HCl (Desyrel) 50 mg QHSP PRN PO INSOMNIA Last administered on 08/07/18at 22:28; Start 07/31/18 at 19:00 Allergies Coded Allergies: No Known Allergies (Verified , 08/13/05) WILLIAM SALCEDO DO Sep 12, 2018 8:46 am
[2018-09-12] MEDS: DIVALPROEX 500MG *ER* TAB PO SCH ×2 (08:57→21:22)
[2018-09-12] MEDS: oxyBUTYnin *DITROPAN XL* 5 MG TABCR PO SCH ×2 (08:57→21:22)
[2018-09-12 18:00] VITALS: BP 92/51
[2018-09-13 06:38] VITALS: BP 136/60
[2018-09-13] MEDS: DIVALPROEX 500MG *ER* TAB PO SCH ×2 (08:24→20:38)
[2018-09-13] MEDS: oxyBUTYnin *DITROPAN XL* 5 MG TABCR PO SCH ×2 (08:24→20:38)
--- NOTE | 2018-09-13 09:12 | MHIPNPDOC ---
[facility] Progress Note Progress Note DATE OF SERVICE: 09/13/18 HISTORY: Patient is a 68 -year-old , female, with a history of moderate dementia, schizophrenia who was sent to [facility] ED from [place] [facility] due to pt being combative and assaultive toward staff there, threatening 91y/o roommate, and licking hands covered in feces. Recently d/c from medical floor for treatment of hypotension and seen by Dr. Renato becker and diagnosed with schizophrenia. Per nursing staff, when pt seen today, asked if she was incontinent of feces and pt proceeded to put her hands down the back of her pants then smell and lick her had stating "no I'm clean" then went on to like a bar of soap. When I attempted to see pt in her room she looked at me and then looked down not cooperating with interview. History gathered from chart review. VITAL SIGNS: See below. NEW TEST RESULTS: depakote lvl - 60.5 therapeutic CURRENT MEDICATIONS: See below. MENTAL STATUS EXAMINATION: No change from yesterday General Appearance: clean, dressing in new clothes and wearing earrings, looks nice, walking to phone with some difficulty (refused help) in milieu. doesn't smell of urine today, walking with walker Build: average Demeanor: pleasant Eye Contact: good Activity: average Behavior: cooperative, calm Speech: reg rate/rhythm/volume Mood: euthymic, bright Mood "good" Affect: appropriate, calm, cooperative Thought Process: coherent, more linear and logical to conversation Thought Content (Delusions): none reported Thought Content (Other): none reported Thought Content (Aggressive): none reported Perception (Hallucinations): none reported Perception (Other): none reported Cognition (Impairment of): improved orientation, attention/concentration, a bility to abstract Cognition(Intelligence Est.): other (demented) Oriented: Awake, Alert, oriented Insight: limited Judgment: limited Psychosis: none reported DIAGNOSES: paranoid schizophrenia moderate cognitive d/o ASSESSMENT:Roughly no change from yesterday. Pt seen in her room laying on her bed, very pleasant and bright. She is bright and states her mood is good. Per nursing pt is attending to her own personal hygiene care well and keeping herself dry of urine. Pt is taking sponge baths on her own daily although doesn't smell of urine. Tolerating oxybutin 5mg bid and incontinence is improved although still has occasional incontinence. Will continue to encourage daily hygiene. Baseline isolative to room most likely due to difficulty walking. Attention is good. Able to ask appropriate questions and show some level of understanding during interview. Compliant with all oral meds and appears they are beneficial and she's tolerating them well. Pt took invega sustenna monthly dose yesterday and tolerated it well, appears beneficial, and denies side effects. Possible d/c to alf residential care at [facility]. Will follow-up with d/c materials planner. MANAGEMENT PLAN: continue current plan Medications: invega sustenna 234mg im 09/09/18 depakote er 500mg bid. oxybutin 5mg bid for incontinence TIME SPENT: 30 minutes. Vital Signs Vital Signs Date Time Temp Pulse Resp B/P (MAP) Pulse Ox O2 Delivery O2 Flow Rate FiO2 09/13/18 06:38 98.2 50 16 136/60 (85) 09/12/18 06:47 Room Air Current Medications Current Medications Acetaminophen (Tylenol Tab) 650 mg Q6HP PRN PO HEADACHE or DISCOMFORT; Start 07/31/18 at 19:00 Al Hydrox/Mg Hydrox/Simethicone (Mylanta) 30 ml Q4HP PRN PO HEARTBURN/INDIGESTION; Start 07/31/18 at 19:00 Aripiprazole (AbiLIFY) 2 mg QHS PO Last administered on 07/31/18at 20:53; Start 07/31/18 at 21:00; Stop 08/01/18 at 15:17; Status DC Aripiprazole (AbiLIFY) 5 mg QAM PO Last administered on 08/01/18at 09:19; Start 08/01/18 at 09:00; Stop 08/01/18 at 15:17; Status DC Cefdinir (Omnicef) 300 mg BID PO Last administered on 08/08/18at 21:25; Start 08/02/18 at 09:00; Stop 08/08/18 at 21:01; Status DC Divalproex Sodium (Depakote Er) 500 mg BID PO Last administered on 09/13/18at 08:24; Start 07/31/18 at 21:00 Divalproex Sodium (Depakote) 500 mg BID PO ; Start 07/31/18 at 21:00; Stop 07/31/18 at 21:00; Status DC Fluoxetine HCl (PROzac) 10 mg QHS PO Last administered on 07/31/18at 20:52; Start 07/31/18 at 21:00; Stop 08/01/18 at 15:17; Status DC Home Med (Med Rec Complete!) ASDIRECTED XX ; Start 07/31/18 at 16:00; Stop 1 09/30/17 at 16:08; Status DC Magnesium Hydroxide (Milk Of Magnesia) 30 ml DAILYPRN PRN PO CONSTIPATION; Start 07/31/18 at 19:00 Miscellaneous (Unresolved Clarification Entry) SEE LABEL COMMENTS DAILY XX ; Start 09/02/18 at 09:00; Stop 09/02/18 at 09:52; Status DC Miscellaneous (Unresolved Clarification Entry) SEE LABEL COMMENTS DAILY XX ; Start 09/12/18 at 09:00; Stop 09/12/18 at 11:52; Status DC Miscellaneous (Unresolved Clarification Entry) SEE LABEL COMMENTS DAILY XX ; Start 08/29/18 at 09:00; Stop 08/30/18 at 12:30; Status DC Miscellaneous (Unresolved Clarification Entry) SEE LABEL COMMENTS DAILY XX ; Start 09/01/18 at 09:00; Stop 09/02/18 at 07:17; Status DC Olanzapine (ZyPREXA ZYDIS) 10 mg Q4HP PRN PO ANXIETY/AGITATION Last administered on 08/03/18at 16:46; Start 08/03/18 at 12:45; Stop 09/02/18 at 09:52; Status DC Oxybutynin Chloride (Ditropan Xl) 5 mg BID PO Last administered on 09/13/18at 08:24; Start 08/14/18 at 09:00 Paliperidone (Invega) 3 mg QAM PO Last administered on 08/07/18at 09:24; Start 08/02/18 at 09:00; Stop 08/07/18 at 10:40; Status DC Paliperidone (Invega) 3 mg QHS PO Last administered on 08/06/18at 20:48; Start 08/01/18 at 21:00; Stop 08/07/18 at 10:40; Status DC Paliperidone Palmitate (Invega Sustenna) 234 mg Q30D IM ; Start 10/09/18 at 09:00 Risperidone (RisperDAL) 3 mg DAILY PO Last administered on 08/01/18at 09:19; Start 08/01/18 at 09:00; Stop 08/01/18 at 15:17; Status DC Trazodone HCl (Desyrel) 50 mg QHSP PRN PO INSOMNIA Last administered on 08/07/18at 22:28; Start 07/31/18 at 19:00 Allergies Coded Allergies: No Known Allergies (Verified , 08/13/05) WILLIAM SALCEDO DO Sep 13, 2018 9:12 am
[2018-09-13 18:05] VITALS: BP 102/54
[2018-09-14 06:52] VITALS: BP 114/57
[2018-09-14] MEDS: oxyBUTYnin *DITROPAN XL* 5 MG TABCR PO SCH ×2 (08:30→20:34)
[2018-09-14] MEDS: DIVALPROEX 500MG *ER* TAB PO SCH ×2 (08:31→20:35)
[2018-09-14 18:06] VITALS: BP 106/53
[2018-09-15 06:00] VITALS: BP 97/55
[2018-09-15] MEDS: DIVALPROEX 500MG *ER* TAB PO SCH ×2 (08:40→20:53)
[2018-09-15] MEDS: oxyBUTYnin *DITROPAN XL* 5 MG TABCR PO SCH ×2 (08:40→20:52)
[2018-09-15 17:51] VITALS: BP 92/49
[2018-09-16 06:35] VITALS: BP 110/53
[2018-09-16] MEDS: DIVALPROEX 500MG *ER* TAB PO SCH ×2 (09:05→21:17)
[2018-09-16] MEDS: oxyBUTYnin *DITROPAN XL* 5 MG TABCR PO SCH ×2 (09:05→21:17)
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
[2018-09-16 18:00] VITALS: BP 88/50
[2018-09-17 06:34] VITALS: BP 114/57
[2018-09-17] MEDS: DIVALPROEX 500MG *ER* TAB PO SCH ×2 (09:02→21:10)
[2018-09-17] MEDS: oxyBUTYnin *DITROPAN XL* 5 MG TABCR PO SCH ×2 (09:02→21:10)
[2018-09-17 18:08] VITALS: BP 80/50
[2018-09-18 06:47] VITALS: BP 111/55
[2018-09-18] MEDS: oxyBUTYnin *DITROPAN XL* 5 MG TABCR PO SCH ×2 (08:45→20:56)
[2018-09-18] MEDS: DIVALPROEX 500MG *ER* TAB PO SCH ×2 (08:45→20:56)
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
[2018-09-18 18:15] VITALS: BP 102/54
[2018-09-19 06:50] VITALS: BP 90/53
[2018-09-19] MEDS: oxyBUTYnin *DITROPAN XL* 5 MG TABCR PO SCH ×2 (08:48→20:05)
[2018-09-19] MEDS: DIVALPROEX 500MG *ER* TAB PO SCH ×2 (08:48→20:05)
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
[2018-09-19 18:00] VITALS: BP 93/48
[2018-09-20 06:32] VITALS: BP 105/55
[2018-09-20] MEDS: DIVALPROEX 500MG *ER* TAB PO SCH ×2 (08:27→20:22)
[2018-09-20] MEDS: oxyBUTYnin *DITROPAN XL* 5 MG TABCR PO SCH ×2 (08:28→20:22)
--- NOTE | 2018-09-20 09:32 | MHIPNPDOC ---
[facility] Progress Note Progress Note DATE OF SERVICE: 09/20/18 HISTORY: Patient is a 68 -year-old , female, with a history of moderate dementia, schizophrenia who was sent to [facility] ED from [facility] due to pt being combative and assaultive toward staff there, threatening 91y/o roommate, and licking hands covered in feces. Recently d/c from medical floor for treatment of hypotension and seen by Dr. Renato becker and diagnosed with schizophrenia. Per nursing staff, when pt seen today, asked if she was incontinent of feces and pt proceeded to put her hands down the back of her pants then smell and lick her had stating "no I'm clean" then went on to like a bar of soap. When I attempted to see pt in her room she looked at me and then looked down not cooperating with interview. History gathered from chart review. VITAL SIGNS: See below. NEW TEST RESULTS: depakote lvl - 60.5 therapeutic CURRENT MEDICATIONS: See below. MENTAL STATUS EXAMINATION: No change from yesterday General Appearance: clean, dressing in new clothes and wearing earrings, looks nice, walking to phone with some difficulty (refused help) in milieu. doesn't smell of urine today, walking with walker Build: average Demeanor: pleasant Eye Contact: good Activity: average Behavior: cooperative, calm Speech: reg rate/rhythm/volume Mood: euthymic, bright Mood "good" Affect: appropriate, calm, cooperative Thought Process: coherent, more linear and logical to conversation Thought Content (Delusions): none reported Thought Content (Other): none reported Thought Content (Aggressive): none reported Perception (Hallucinations): none reported Perception (Other): none reported Cognition (Impairment of): improved orientation, attention/concentration, a bility to abstract Cognition(Intelligence Est.): other (demented) Oriented: Awake, Alert, oriented Insight: limited Judgment: limited Psychosis: none reported DIAGNOSES: paranoid schizophrenia moderate cognitive d/o ASSESSMENT:Roughly no change from yesterday. Pt seen in her room laying on her bed, very pleasant and bright. She is cooperative and states her mood is good. Per nursing pt is attending to her own personal hygiene care well and keeping herself dry of urine. Pt is taking sponge baths on her own daily although doesn't smell of urine. Tolerating oxybutin 5mg bid and incontinence is improved although still has occasional incontinence. Will continue to encourage daily hygiene. Baseline isolative to room most likely due to difficulty walking. Walking with walker and PT daily. Out of room more often due to increased ability to walk. Had PT consult for the stairs yesterday and stated she did good going up and down one flight of stairs which she was proud about. Attention is good. Able to ask appropriate questions and show some level of understanding during interview. Compliant with all oral meds and appears they are beneficial and she's tolerating them well. Pt took invega sustenna monthly dose yesterday and tolerated it well, appears beneficial, and denies side effects. Possible d/c to [facility] residential care at [facility]. Will follow-up with d/c planner/scheduler. MANAGEMENT PLAN: continue current plan. Medications: invega sustenna 234mg im 09/09/18 depakote er 500mg bid. oxybutin 5mg bid for incontinence TIME SPENT: 30 minutes. Vital Signs Vital Signs Date Time Temp Pulse Resp B/P (MAP) Pulse Ox O2 Delivery O2 Flow Rate FiO2 09/20/18 06:32 98.4 55 14 105/55 (72) 09/19/18 08:21 Room Air 09/16/18 18:00 95 Current Medications Current Medications Acetaminophen (Tylenol Tab) 650 mg Q6HP PRN PO HEADACHE or DISCOMFORT; Start 07/31/18 at 19:00 Al Hydrox/Mg Hydrox/Simethicone (Mylanta) 30 ml Q4HP PRN PO HEARTBURN/INDIGESTION; Start 07/31/18 at 19:00 Aripiprazole (AbiLIFY) 2 mg QHS PO Last administered on 07/31/18at 20:53; Start 07/31/18 at 21:00; Stop 08/01/18 at 15:17; Status DC Aripiprazole (AbiLIFY) 5 mg QAM PO Last administered on 08/01/18at 09:19; Start 08/01/18 at 09:00; Stop 08/01/18 at 15:17; Status DC Cefdinir (Omnicef) 300 mg BID PO Last administered on 08/08/18at 21:25; Start 08/02/18 at 09:00; Stop 08/08/18 at 21:01; Status DC Divalproex Sodium (Depakote Er) 500 mg BID PO Last administered on 09/20/18at 08:27; Start 07/31/18 at 21:00 Divalproex Sodium (Depakote) 500 mg BID PO ; Start 07/31/18 at 21:00; Stop 07/31/18 at 21:00; Status DC Fluoxetine HCl (PROzac) 10 mg QHS PO Last administered on 07/31/18at 20:52; Start 07/31/18 at 21:00; Stop 08/01/18 at 15:17; Status DC Home Med (Med Rec Complete!) ASDIRECTED XX ; Start 07/31/18 at 16:00; Stop 07/31/18 at 16:08; Status DC Magnesium Hydroxide (Milk Of Magnesia) 30 ml DAILYPRN PRN PO CONSTIPATION; Start 07/31/18 at 19:00 Miscellaneous (Unresolved Clarification Entry) SEE LABEL COMMENTS DAILY XX ; Start 09/02/18 at 09:00; Stop 09/02/18 at 09:52; Status DC Miscellaneous (Unresolved Clarification Entry) SEE LABEL COMMENTS DAILY XX ; Start 09/12/18 at 09:00; Stop 09/12/18 at 11:52; Status DC Miscellaneous (Unresolved Clarification Entry) SEE LABEL COMMENTS DAILY XX ; Start 08/29/18 at 09:00; Stop 08/30/18 at 12:30; Status DC Miscellaneous (Unresolved Clarification Entry) SEE LABEL COMMENTS DAILY XX ; Start 09/01/18 at 09:00; Stop 09/02/18 at 07:17; Status DC Olanzapine (ZyPREXA ZYDIS) 10 mg Q4HP PRN PO ANXIETY/AGITATION Last administered on 08/03/18at 16:46; Start 08/03/18 at 12:45; Stop 09/02/18 at 09:52; Status DC Oxybutynin Chloride (Ditropan Xl) 5 mg BID PO Last administered on 09/20/18at 08:28; Start 08/14/18 at 09:00 Paliperidone (Invega) 3 mg QAM PO Last administered on 08/07/18at 09:24; Start 08/02/18 at 09:00; Stop 08/07/18 at 10:40; Status DC Paliperidone (Invega) 3 mg QHS PO Last administered on 08/06/18at 20:48; Start 08/01/18 at 21:00; Stop 08/07/18 at 10:40; Status DC Paliperidone Palmitate (Invega Sustenna) 234 mg Q30D IM ; Start 10/09/18 at 09:00 Risperidone (RisperDAL) 3 mg DAILY PO Last administered on 08/01/18at 09:19; Start 08/01/18 at 09:00; Stop 08/01/18 at 15:17; Status DC Trazodone HCl (Desyrel) 50 mg QHSP PRN PO INSOMNIA Last administered on 08/07/18at 22:28; Start 07/31/18 at 19:00 Allergies Coded Allergies: No Known Allergies (Verified , 08/13/05) WILLIAM SALCEDO DO Sep 20, 2018 9:20 am
[2018-09-20 18:00] VITALS: BP 98/56
[2018-09-21 06:32] VITALS: BP 135/62
[2018-09-21] MEDS: oxyBUTYnin *DITROPAN XL* 5 MG TABCR PO SCH ×2 (08:26→20:23)
[2018-09-21] MEDS: DIVALPROEX 500MG *ER* TAB PO SCH ×2 (08:27→20:23)
[2018-09-21 18:00] VITALS: BP 94/60
[2018-09-22 06:36] VITALS: BP 119/56
[2018-09-22] MEDS: oxyBUTYnin *DITROPAN XL* 5 MG TABCR PO SCH ×2 (08:17→20:43)
[2018-09-22] MEDS: DIVALPROEX 500MG *ER* TAB PO SCH ×2 (08:18→20:43)
[2018-09-22 18:00] VITALS: BP 98/59
[2018-09-23 06:48] VITALS: BP 91/53
--- NOTE | 2018-09-23 08:43 | MHIPNPDOC ---
[facility] Progress Note Progress Note DATE OF SERVICE: 09/23/18 HISTORY: Patient is a 68 -year-old , female, with a history of moderate dementia, schizophrenia who was sent to [facility] ED from [facility] due to pt being combative and assaultive toward staff there, threatening 91y/o roommate, and licking hands covered in feces. Recently d/c from medical floor for treatment of hypotension and seen by Dr. Renato becker and diagnosed with schizophrenia. Per nursing staff, when pt seen today, asked if she was incontinent of feces and pt proceeded to put her hands down the back of her pants then smell and lick her had stating "no I'm clean" then went on to like a bar of soap. When I attempted to see pt in her room she looked at me and then looked down not cooperating with interview. History gathered from chart review. VITAL SIGNS: See below. NEW TEST RESULTS: depakote lvl - 60.5 therapeutic CURRENT MEDICATIONS: See below. MENTAL STATUS EXAMINATION: No change from yesterday General Appearance: clean, dressing in new clothes and wearing earrings, looks nice, walking to phone with some difficulty (refused help) in milieu. doesn't smell of urine today, walking with walker Build: average Demeanor: pleasant Eye Contact: good Activity: average Behavior: cooperative, calm Speech: reg rate/rhythm/volume Mood: euthymic, bright Mood "good" Affect: appropriate, calm, cooperative Thought Process: coherent, more linear and logical to conversation Thought Content (Delusions): none reported Thought Content (Other): none reported Thought Content (Aggressive): none reported Perception (Hallucinations): none reported Perception (Other): none reported Cognition (Impairment of): improved orientation, attention/concentration, a bility to abstract Cognition(Intelligence Est.): other (demented) Oriented: Awake, Alert, oriented Insight: limited Judgment: limited Psychosis: none reported DIAGNOSES: paranoid schizophrenia moderate cognitive d/o ASSESSMENT:Roughly no change from last week. Pt seen in her room laying on her bed, very pleasant and bright. She is cooperative and states her mood is good. Per nursing pt is attending to her own personal hygiene care well and keeping herself dry of urine. Room villatoro smell strong of urine and will have nursing help pt with clothing, washing self, etc. today. Pt is taking sponge baths on her own daily although doesn't smell of urine. Tolerating oxybutin 5mg bid and incontinence is improved although still has occasional incontinence. Will continue to encourage daily hygiene. Baseline isolative to room most likely due to difficulty walking. Walking with walker and PT daily. Out of room more often due to increased ability to walk. Had PT consult for the stairs yesterday and stated she did good going up and down one flight of stairs which she was proud about. Attention is good. Able to ask appropriate questions and show some level of understanding during interview. Compliant with all oral meds and appears they are beneficial and she's tolerating them well. Pt took invega sustenna monthly dose yesterday and tolerated it well, appears beneficial, and denies side effects. Possible d/c to [facility] residential care at [facility]. Will follow-up with d/c convention planner. MANAGEMENT PLAN: continue current plan. Medications: invega sustenna 234mg im 09/09/18 depakote er 500mg bid. oxybutin 5mg bid for incontinence TIME SPENT: 30 minutes. Vital Signs Vital Signs Date Time Temp Pulse Resp B/P (MAP) Pulse Ox O2 Delivery O2 Flow Rate FiO2 09/23/18 06:48 98.1 83 16 91/53 (66) 09/19/18 08:21 Room Air Current Medications Current Medications Acetaminophen (Tylenol Tab) 650 mg Q6HP PRN PO HEADACHE or DISCOMFORT; Start 07/31/18 at 19:00 Al Hydrox/Mg Hydrox/Simethicone (Mylanta) 30 ml Q4HP PRN PO HEARTBURN/INDIGESTION; Start 07/31/18 at 19:00 Aripiprazole (AbiLIFY) 2 mg QHS PO Last administered on 07/31/18at 20:53; Start 07/31/18 at 21:00; Stop 08/01/18 at 15:17; Status DC Aripiprazole (AbiLIFY) 5 mg QAM PO Last administered on 08/01/18at 09:19; Start 08/01/18 at 09:00; Stop 08/01/18 at 15:17; Status DC Cefdinir (Omnicef) 300 mg BID PO Last administered on 08/08/18at 21:25; Start 08/02/18 at 09:00; Stop 08/08/18 at 21:01; Status DC Divalproex Sodium (Depakote Er) 500 mg BID PO Last administered on 09/22/18at 20:43; Start 07/31/18 at 21:00 Divalproex Sodium (Depakote) 500 mg BID PO ; Start 07/31/18 at 21:00; Stop 07/31/18 at 21:00; Status DC Fluoxetine HCl (PROzac) 10 mg QHS PO Last administered on 07/31/18at 20:52; Start 07/31/18 at 21:00; Stop 08/01/18 at 15:17; Status DC Home Med (Med Rec Complete!) ASDIRECTED XX ; Start 07/31/18 at 16:00; Stop 07/31/18 at 16:08; Status DC Magnesium Hydroxide (Milk Of Magnesia) 30 ml DAILYPRN PRN PO CONSTIPATION; Start 07/31/18 at 19:00 Miscellaneous (Unresolved Clarification Entry) SEE LABEL COMMENTS DAILY XX ; Start 09/02/18 at 09:00; Stop 09/02/18 at 09:52; Status DC Miscellaneous (Unresolved Clarification Entry) SEE LABEL COMMENTS DAILY XX ; Start 09/12/18 at 09:00; Stop 09/12/18 at 11:52; Status DC Miscellaneous (Unresolved Clarification Entry) SEE LABEL COMMENTS DAILY XX ; Start 08/29/18 at 09:00; Stop 08/30/18 at 12:30; Status DC Miscellaneous (Unresolved Clarification Entry) SEE LABEL COMMENTS DAILY XX ; Start 09/01/18 at 09:00; Stop 09/02/18 at 07:17; Status DC Olanzapine (ZyPREXA ZYDIS) 10 mg Q4HP PRN PO ANXIETY/AGITATION Last administered on 08/03/18at 16:46; Start 08/03/18 at 12:45; Stop 09/02/18 at 09:52; Status DC Oxybutynin Chloride (Ditropan Xl) 5 mg BID PO Last administered on 09/22/18at 20:43; Start 08/14/18 at 09:00 Paliperidone (Invega) 3 mg QAM PO Last administered on 08/07/18at 09:24; Start 08/02/18 at 09:00; Stop 08/07/18 at 10:40; Status DC Paliperidone (Invega) 3 mg QHS PO Last administered on 08/06/18at 20:48; Start 08/01/18 at 21:00; Stop 08/07/18 at 10:40; Status DC Paliperidone Palmitate (Invega Sustenna) 234 mg Q30D IM ; Start 10/09/18 at 09:00 Risperidone (RisperDAL) 3 mg DAILY PO Last administered on 08/01/18at 09:19; Start 08/01/18 at 09:00; Stop 08/01/18 at 15:17; Status DC Trazodone HCl (Desyrel) 50 mg QHSP PRN PO INSOMNIA Last administered on 08/07/18at 22:28; Start 07/31/18 at 19:00 Allergies Coded Allergies: No Known Allergies (Verified , 08/13/05) WILLIAM SALCEDO DO Sep 23, 2018 08:43
[2018-09-23] MEDS: oxyBUTYnin *DITROPAN XL* 5 MG TABCR PO SCH ×2 (08:47→20:57)
[2018-09-23] MEDS: DIVALPROEX 500MG *ER* TAB PO SCH ×2 (08:47→20:57)
[2018-09-23 18:00] VITALS: BP 92/54
[2018-09-24 06:43] VITALS: BP 95/52
[2018-09-24] MEDS: oxyBUTYnin *DITROPAN XL* 5 MG TABCR PO SCH ×2 (09:14→20:48)
[2018-09-24] MEDS: DIVALPROEX 500MG *ER* TAB PO SCH ×2 (09:14→20:48)
[2018-09-24 18:00] VITALS: BP 96/49
[2018-09-25 07:00] VITALS: BP 113/53
[2018-09-25] MEDS: oxyBUTYnin *DITROPAN XL* 5 MG TABCR PO SCH ×2 (09:08→20:21)
[2018-09-25] MEDS: DIVALPROEX 500MG *ER* TAB PO SCH ×2 (09:08→20:21)
--- NOTE | 2018-09-25 11:10 | MHIPNPDOC ---
[facility] Progress Note Progress Note DATE OF SERVICE: 09/25/18 HISTORY: Patient is a 68 -year-old , female, with a history of moderate dementia, schizophrenia who was sent to [facility] from [facility] due to pt being combative and assaultive toward staff there, threatening 91y/o roommate, and licking hands covered in feces. Recently d/c from medical floor for treatment of hypotension and seen by Dr. Renato becker and diagnosed with schizophrenia. Per nursing staff, when pt seen today, asked if she was incontinent of feces and pt proceeded to put her hands down the back of her pants then smell and lick her had stating "no I'm clean" then went on to like a bar of soap. When I attempted to see pt in her room she looked at me and then looked down not cooperating with interview. History gathered from chart review. VITAL SIGNS: See below. NEW TEST RESULTS: depakote lvl - 60.5 therapeutic CURRENT MEDICATIONS: See below. MENTAL STATUS EXAMINATION: No change from yesterday General Appearance: clean, dressing in new clothes and wearing earrings, looks nice, walking to phone with some difficulty (refused help) in milieu. doesn't smell of urine today, walking with walker Build: average Demeanor: pleasant Eye Contact: good Activity: average Behavior: cooperative, calm Speech: reg rate/rhythm/volume Mood: euthymic, bright Mood "good" Affect: appropriate, calm, cooperative Thought Process: coherent, more linear and logical to conversation Thought Content (Delusions): none reported Thought Content (Other): none reported Thought Content (Aggressive): none reported Perception (Hallucinations): none reported Perception (Other): none reported Cognition (Impairment of): improved orientation, attention/concentration, ab ility to abstract Cognition(Intelligence Est.): other (demented) Oriented: Awake, Alert, oriented Insight: limited Judgment: limited Psychosis: none reported DIAGNOSES: paranoid schizophrenia moderate cognitive d/o ASSESSMENT:Roughly no change from Sunday. Pt seen in her room laying on her bed, very pleasant and bright. She is cooperative and states her mood is good. Per nursing pt is attending to her own personal hygiene care well and keeping herself dry of urine. Room does smell strong of urine and will have nursing help pt with clothing, washing self, etc. today again. Pt is taking sponge baths on her own daily although doesn't smell of urine. Tolerating oxybutin 5mg bid and incontinence is improved although still has occasional incontinence. Will continue to encourage daily hygiene. Baseline isolative to room most likely due to difficulty walking. Walking with walker and PT daily. Out of room more often due to increased ability to walk. Had PT consult for the stairs yesterday and stated she did good going up and down one flight of stairs which she was proud about. Attention is good. Able to ask appropriate questions and show some level of understanding during interview. Compliant with all oral meds and appears they are beneficial and she's tolerating them well. Pt took invega sustenna monthly dose yesterday and tolerated it well, appears beneficial, and denies side effects. Agrees to go to [facility] as long as she can smoke there. Will follow-up with d/c conservation planner. MANAGEMENT PLAN: continue current plan. Medications: invega sustenna 234mg im 09/09/18 depakote er 500mg bid. oxybutin 5mg bid for incontinence TIME SPENT: 30 minutes. Vital Signs Vital Signs Date Time Temp Pulse Resp B/P (MAP) Pulse Ox O2 Delivery O2 Flow Rate FiO2 09/25/18 07:00 96.8 62 16 113/53 (73) 09/19/18 08:21 Room Air Current Medications Current Medications Acetaminophen (Tylenol Tab) 650 mg Q6HP PRN PO HEADACHE or DISCOMFORT; Start 07/31/18 at 19:00 Al Hydrox/Mg Hydrox/Simethicone (Mylanta) 30 ml Q4HP PRN PO HEARTBURN/INDIGESTION; Start 07/31/18 at 19:00 Aripiprazole (AbiLIFY) 2 mg QHS PO Last administered on 07/31/18at 20:53; Start 07/31/18 at 21:00; Stop 08/01/18 at 15:17; Status DC Aripiprazole (AbiLIFY) 5 mg QAM PO Last administered on 08/01/18at 09:19; Start 08/01/18 at 09:00; Stop 08/01/18 at 15:17; Status DC Cefdinir (Omnicef) 300 mg BID PO Last administered on 08/08/18at 21:25; Start 08/02/18 at 09:00; Stop 08/08/18 at 21:01; Status DC Divalproex Sodium (Depakote Er) 500 mg BID PO Last administered on 09/25/18 09:08; Start 07/31/18 at 21:00 Divalproex Sodium (Depakote) 500 mg BID PO ; Start 07/31/18 at 21:00; Stop 07/31/18 at 21:00; Status DC Fluoxetine HCl (PROzac) 10 mg QHS PO Last administered on 07/31/18at 20:52; Start 07/31/18 at 21:00; Stop 08/01/18 at 15:17; Status DC Home Med (Med Rec Complete!) ASDIRECTED XX ; Start 07/31/18 at 16:00; Stop 07/31/18 at 16:08; Status DC Magnesium Hydroxide (Milk Of Magnesia) 30 ml DAILYPRN PRN PO CONSTIPATION; Start 07/31/18 at 19:00 Miscellaneous (Unresolved Clarification Entry) SEE LABEL COMMENTS DAILY XX ; Start 09/02/18 at 09:00; Stop 09/02/18 at 09:52; Status DC Miscellaneous (Unresolved Clarification Entry) SEE LABEL COMMENTS DAILY XX ; Start 09/12/18 at 09:00; Stop 09/12/18 at 11:52; Status DC Miscellaneous (Unresolved Clarification Entry) SEE LABEL COMMENTS DAILY XX ; Start 08/29/18 at 09:00; Stop 08/30/18 at 12:30; Status DC Miscellaneous (Unresolved Clarification Entry) SEE LABEL COMMENTS DAILY XX ; Start 09/01/18 at 09:00; Stop 09/02/18 at 07:17; Status DC Olanzapine (ZyPREXA ZYDIS) 10 mg Q4HP PRN PO ANXIETY/AGITATION Last administered on 08/03/18at 16:46; Start 08/03/18 at 12:45; Stop 09/02/18 at 09:52; Status DC Oxybutynin Chloride (Ditropan Xl) 5 mg BID PO Last administered on 09/25/18at 09:08; Start 08/14/18 at 09:00 Paliperidone (Invega) 3 mg QAM PO Last administered on 08/07/18at 09:24; Start 08/02/18 at 09:00; Stop 11/14/18 at 10:40; Status DC Paliperidone (Invega) 3 mg QHS PO Last administered on 08/06/18at 20:48; Start 08/01/18 at 21:00; Stop 08/07/18 at 10:40; Status DC Paliperidone Palmitate (Invega Sustenna) 234 mg Q30D IM ; Start 10/09/18 at 09:00 Risperidone (RisperDAL) 3 mg DAILY PO Last administered on 08/01/18at 09:19; Start 08/01/18 at 09:00; Stop 08/01/18 at 15:17; Status DC Trazodone HCl (Desyrel) 50 mg QHSP PRN PO INSOMNIA Last administered on 08/07/18at 22:28; Start 07/31/18 at 19:00 Allergies Coded Allergies: No Known Allergies (Verified , 08/13/05) WILLIAM SALCEDO DO Sep 25, 2018 11:10 am
[2018-09-25 18:00] VITALS: BP 136/81
[2018-09-26 06:49] VITALS: BP 98/50
--- NOTE | 2018-09-26 09:22 | MHIPNPDOC ---
[facility] Progress Note Progress Note DATE OF SERVICE: 09/26/18 HISTORY: Patient is a 68 -year-old , female, with a history of moderate dementia, schizophrenia who was sent to [facility] ED from [facility] due to pt being combative and assaultive toward staff there, threatening 91y/o roommate, and licking hands covered in feces. Recently d/c from medical floor for treatment of hypotension and seen by Dr. Renato becker and diagnosed with schizophrenia. Per nursing staff, when pt seen today, asked if she was incontinent of feces and pt proceeded to put her hands down the back of her pants then smell and lick her had stating "no I'm clean" then went on to like a bar of soap. When I attempted to see pt in her room she looked at me and then looked down not cooperating with interview. History gathered from chart review. VITAL SIGNS: See below. NEW TEST RESULTS: depakote lvl - 60.5 therapeutic CURRENT MEDICATIONS: See below. MENTAL STATUS EXAMINATION: No change from yesterday General Appearance: clean, dressing in new clothes and wearing earrings, looks nice, walking to phone with some difficulty (refused help) in milieu. doesn't smell of urine today, walking with walker Build: average Demeanor: pleasant Eye Contact: good Activity: average Behavior: cooperative, calm Speech: reg rate/rhythm/volume Mood: euthymic, bright Mood "good" Affect: appropriate, calm, cooperative Thought Process: coherent, more linear and logical to conversation Thought Content (Delusions): none reported Thought Content (Other): none reported Thought Content (Aggressive): none reported Perception (Hallucinations): none reported Perception (Other): none reported Cognition (Impairment of): improved orientation, attention/concentration, tonya lity to abstract Cognition(Intelligence Est.): other (demented) Oriented: Awake, Alert, oriented Insight: limited Judgment: limited Psychosis: none reported DIAGNOSES: paranoid schizophrenia moderate cognitive d/o ASSESSMENT:Roughly no change from yesterday. Pt seen in her room changing clothes on her own and states she's "ok." She is very pleasant and bright. She is cooperative and states her mood is good. Per nursing pt is attending to her own personal hygiene care well and keeping herself dry of urine. Room does smell strong of urine and will have nursing help pt with clothing, washing self, etc. today again. Pt is taking sponge baths on her own daily although doesn't smell of urine. Tolerating oxybutin 5mg bid and incontinence is improved although still has occasional incontinence. Will continue to encourage daily hygiene. Baseline isolative to room most likely due to difficulty walking. Walking with walker and PT daily. Out of room more often due to increased ability to walk. Had PT consult for the stairs yesterday and stated she did good going up and down one flight of stairs which she was proud about. Attention is good. Able to ask appropriate questions and show some level of understanding during interview. Compliant with all oral meds and appears they are beneficial and she's tolerating them well. Pt took invega sustenna monthly dose yesterday and tolerated it well, appears beneficial, and denies side effects. Agrees to go [facility] as long as she can smoke there. Will follow-up with d/c personal financial planner. MANAGEMENT PLAN: continue current plan. Medications: invega sustenna 234mg im 09/09/18 depakote er 500mg bid. oxybutin 5mg bid for incontinence TIME SPENT: 30 minutes. Vital Signs Vital Signs Date Time Temp Pulse Resp B/P (MAP) Pulse Ox O2 Delivery O2 Flow Rate FiO2 09/26/18 06:49 97.4 50 16 98/50 (66) 09/25/18 18:00 95 Room Air Current Medications Current Medications Acetaminophen (Tylenol Tab) 650 mg Q6HP PRN PO HEADACHE or DISCOMFORT; Start 07/31/18 at 19:00 Al Hydrox/Mg Hydrox/Simethicone (Mylanta) 30 ml Q4HP PRN PO HEARTBURN/INDIGESTION; Start 07/31/18 at 19:00 Aripiprazole (AbiLIFY) 2 mg QHS PO Last administered on 07/31/18at 20:53; Start 07/31/18 at 21:00; Stop 08/01/18 at 15:17; Status DC Aripiprazole (AbiLIFY) 5 mg QAM PO Last administered on 08/01/18at 09:19; Start 08/01/18 at 09:00; Stop 08/01/18 at 15:17; Status DC Cefdinir (Omnicef) 300 mg BID PO Last administered on 08/08/18at 21:25; Start 08/02/18 at 09:00; Stop 08/08/18 at 21:01; Status DC Divalproex Sodium (Depakote Er) 500 mg BID PO Last administered on 09/25/18 20:21; Start 07/31/18 at 21:00 Divalproex Sodium (Depakote) 500 mg BID PO ; Start 07/31/18 at 21:00; Stop 07/31/18 at 21:00; Status DC Fluoxetine HCl (PROzac) 10 mg QHS PO Last administered on 07/31/18at 20:52; Start 07/31/18 at 21:00; Stop 08/01/18 at 15:17; Status DC Home Med (Med Rec Complete!) ASDIRECTED XX ; Start 07/31/18 at 16:00; Stop 07/31/18 at 16:08; Status DC Magnesium Hydroxide (Milk Of Magnesia) 30 ml DAILYPRN PRN PO CONSTIPATION; Start 07/31/18 at 19:00 Miscellaneous (Unresolved Clarification Entry) SEE LABEL COMMENTS DAILY XX ; Start 09/02/18 at 09:00; Stop 09/02/18 at 09:52; Status DC Miscellaneous (Unresolved Clarification Entry) SEE LABEL COMMENTS DAILY XX ; Start 09/12/18 at 09:00; Stop 09/12/18 at 11:52; Status DC Miscellaneous (Unresolved Clarification Entry) SEE LABEL COMMENTS DAILY XX ; Start 08/29/18 at 09:00; Stop 08/30/18 at 12:30; Status DC Miscellaneous (Unresolved Clarification Entry) SEE LABEL COMMENTS DAILY XX ; Start 09/01/18 at 09:00; Stop 09/02/18 at 07:17; Status DC Olanzapine (ZyPREXA ZYDIS) 10 mg Q4HP PRN PO ANXIETY/AGITATION Last administered on 08/03/18at 16:46; Start 08/03/18 at 12:45; Stop 09/02/18 at 09:52; Status DC Oxybutynin Chloride (Ditropan Xl) 5 mg BID PO Last administered on 09/25/18 20:21; Start 08/14/18 at 09:00 Paliperidone (Invega) 3 mg QAM PO Last administered on 08/07/18at 09:24; Start 08/02/18 at 09:00; Stop 08/07/18 at 10:40; Status DC Paliperidone (Invega) 3 mg QHS PO Last administered on 08/06/18at 20:48; Start 08/01/18 at 21:00; Stop 08/07/18 at 10:40; Status DC Paliperidone Palmitate (Invega Sustenna) 234 mg Q30D IM ; Start 10/09/18 at 09:00 Risperidone (RisperDAL) 3 mg DAILY PO Last administered on 08/01/18at 09:19; Start 08/01/18 at 09:00; Stop 08/01/18 at 15:17; Status DC Trazodone HCl (Desyrel) 50 mg QHSP PRN PO INSOMNIA Last administered on 08/07/18at 22:28; Start 07/31/18 at 19:00 Allergies Coded Allergies: No Known Allergies (Verified , 08/13/05) WILLIAM SALCEDO DO Sep 26, 2018 9:22 am
[2018-09-26] MEDS: oxyBUTYnin *DITROPAN XL* 5 MG TABCR PO SCH ×2 (09:28→21:12)
[2018-09-26] MEDS: DIVALPROEX 500MG *ER* TAB PO SCH ×2 (09:28→21:12)
[2018-09-26 18:00] VITALS: BP 114/62
[2018-09-27 06:35] VITALS: BP 109/51
--- NOTE | 2018-09-27 09:14 | MHIPNPDOC ---
[facility] Progress Note Progress Note DATE OF SERVICE: 09/27/18 HISTORY: Patient is a 68 -year-old , female, with a history of moderate dementia, schizophrenia who was sent to [facility] ED from [facility] due to pt being combative and assaultive toward staff there, threatening 91y/o roommate, and licking hands covered in feces. Recently d/c from medical floor for treatment of hypotension and seen by Dr. Renato becker and diagnosed with schizophrenia. Per nursing staff, when pt seen today, asked if she was incontinent of feces and pt proceeded to put her hands down the back of her pants then smell and lick her had stating "no I'm clean" then went on to like a bar of soap. When I attempted to see pt in her room she looked at me and then looked down not cooperating with interview. History gathered from chart review. VITAL SIGNS: See below. NEW TEST RESULTS: depakote lvl - 60.5 therapeutic CURRENT MEDICATIONS: See below. MENTAL STATUS EXAMINATION: No change from yesterday General Appearance: clean, dressing in new clothes and wearing earrings, looks nice, walking to phone with some difficulty (refused help) in milieu. doesn't smell of urine today, walking with walker Build: average Demeanor: pleasant Eye Contact: good Activity: average Behavior: cooperative, calm Speech: reg rate/rhythm/volume Mood: euthymic, bright Mood "good" Affect: appropriate, calm, cooperative Thought Process: coherent, more linear and logical to conversation Thought Content (Delusions): none reported Thought Content (Other): none reported Thought Content (Aggressive): none reported Perception (Hallucinations): none reported Perception (Other): none reported Cognition (Impairment of): improved orientation, attention/concentration, tonya lity to abstract Cognition(Intelligence Est.): other (demented) Oriented: Awake, Alert, oriented Insight: limited Judgment: limited Psychosis: none reported DIAGNOSES: paranoid schizophrenia moderate cognitive d/o ASSESSMENT:Roughly no change from yesterday. Pt seen in her room changing clothes on her own and states she's "ok." She is very pleasant and bright. She is cooperative and states her mood is good. Per nursing pt is attending to her own personal hygiene care well and keeping herself dry of urine. Room does smell less of urine. Pt is taking sponge baths on her own daily although doesn't smell of urine. Tolerating oxybutin 5mg bid and incontinence is improved although still has occasional incontinence. Will continue to encourage daily hygiene. Baseline isolative to room most likely due to difficulty walking. Walking with walker and PT daily. Out of room more often due to increased ability to walk. Had PT consult for the stairs yesterday and stated she did good going up and down one flight of stairs which she was proud about. Attention is good. Able to ask appropriate questions and show some level of understanding during interview. Compliant with all oral meds and appears they are beneficial and she's tolerating them well. Pt took invega sustenna monthly dose yesterday and tolerated it well, appears beneficial, and denies side effects. Agrees to go to long term as long as she can smoke there. Will follow-up with d/c data recovery planner. MANAGEMENT PLAN: continue current plan. Medications: invega sustenna 234mg im 09/09/18 depakote er 500mg bid. oxybutin 5mg bid for incontinence TIME SPENT: 30 minutes. Vital Signs Vital Signs Date Time Temp Pulse Resp B/P (MAP) Pulse Ox O2 Delivery O2 Flow Rate FiO2 09/27/18 06:35 98.0 62 16 109/51 (70) Room Air 09/25/18 18:00 95 Current Medications Current Medications Acetaminophen (Tylenol Tab) 650 mg Q6HP PRN PO HEADACHE or DISCOMFORT; Start 07/31/18 at 19:00 Al Hydrox/Mg Hydrox/Simethicone (Mylanta) 30 ml Q4HP PRN PO HEARTBURN/INDIGESTION; Start 07/31/18 at 19:00 Aripiprazole (AbiLIFY) 2 mg QHS PO Last administered on 07/31/18at 20:53; Start 07/31/18 at 21:00; Stop 08/01/18 at 15:17; Status DC Aripiprazole (AbiLIFY) 5 mg QAM PO Last administered on 08/01/18at 09:19; Start 08/01/18 at 09:00; Stop 08/01/18 at 15:17; Status DC Cefdinir (Omnicef) 300 mg BID PO Last administered on 08/08/18at 21:25; Start 08/02/18 at 09:00; Stop 08/08/18 at 21:01; Status DC Divalproex Sodium (Depakote Er) 500 mg BID PO Last administered on 09/26/18at 21:12; Start 07/31/18 at 21:00 Divalproex Sodium (Depakote) 500 mg BID PO ; Start 07/31/18 at 21:00; Stop 07/31/18 at 21:00; Status DC Fluoxetine HCl (PROzac) 10 mg QHS PO Last administered on 07/31/18at 20:52; Start 07/31/18 at 21:00; Stop 08/01/18 at 15:17; Status DC Home Med (Med Rec Complete!) ASDIRECTED XX ; Start 07/31/18 at 16:00; Stop 07/31/18 at 16:08; Status DC Magnesium Hydroxide (Milk Of Magnesia) 30 ml DAILYPRN PRN PO CONSTIPATION; Start 07/31/18 at 19:00 Miscellaneous (Unresolved Clarification Entry) SEE LABEL COMMENTS DAILY XX ; Start 09/02/18 at 09:00; Stop 09/02/18 at 09:52; Status DC Miscellaneous (Unresolved Clarification Entry) SEE LABEL COMMENTS DAILY XX ; Start 09/12/18 at 09:00; Stop 09/12/18 at 11:52; Status DC Miscellaneous (Unresolved Clarification Entry) SEE LABEL COMMENTS DAILY XX ; Start 08/29/18 at 09:00; Stop 08/30/18 at 12:30; Status DC Miscellaneous (Unresolved Clarification Entry) SEE LABEL COMMENTS DAILY XX ; Start 09/01/18 at 09:00; Stop 09/02/18 at 07:17; Status DC Olanzapine (ZyPREXA ZYDIS) 10 mg Q4HP PRN PO ANXIETY/AGITATION Last administered on 08/03/18at 16:46; Start 08/03/18 at 12:45; Stop 09/02/18 at 09:52; Status DC Oxybutynin Chloride (Ditropan Xl) 5 mg BID PO Last administered on 09/26/18at 21:12; Start 08/14/18 at 09:00 Paliperidone (Invega) 3 mg QAM PO Last administered on 08/07/18at 09:24; Start 08/02/18 at 09:00; Stop 08/07/18 at 10:40; Status DC Paliperidone (Invega) 3 mg QHS PO Last administered on 08/06/18at 20:48; Start 08/01/18 at 21:00; Stop 08/07/18 at 10:40; Status DC Paliperidone Palmitate (Invega Sustenna) 234 mg Q30D IM ; Start 10/09/18 at 09:00 Risperidone (RisperDAL) 3 mg DAILY PO Last administered on 08/01/18at 09:19; Start 08/01/18 at 09:00; Stop 08/01/18 at 15:17; Status DC Trazodone HCl (Desyrel) 50 mg QHSP PRN PO INSOMNIA Last administered on 08/07/18at 22:28; Start 07/31/18 at 19:00 Allergies Coded Allergies: No Known Allergies (Verified , 08/13/05) WILLIAM SALCEDO DO Sep 27, 2018 9:14 am
[2018-09-27] MEDS: DIVALPROEX 500MG *ER* TAB PO SCH ×2 (09:25→21:28)
[2018-09-27] MEDS: oxyBUTYnin *DITROPAN XL* 5 MG TABCR PO SCH ×2 (09:25→21:28)
[2018-09-27 18:00] VITALS: BP 90/54
[2018-09-28 06:40] VITALS: BP 95/54
[2018-09-28] MEDS: oxyBUTYnin *DITROPAN XL* 5 MG TABCR PO SCH ×2 (09:23→20:10)
[2018-09-28] MEDS: DIVALPROEX 500MG *ER* TAB PO SCH ×2 (09:23→20:10)
[2018-09-28 18:00] VITALS: BP 99/58
[2018-09-29 06:45] VITALS: BP 99/50
[2018-09-29] MEDS: oxyBUTYnin *DITROPAN XL* 5 MG TABCR PO SCH ×2 (09:24→21:54)
[2018-09-29] MEDS: DIVALPROEX 500MG *ER* TAB PO SCH ×2 (09:24→21:54)
[2018-09-29 18:00] VITALS: BP 87/46
[2018-09-30 06:38] VITALS: BP 88/51
[2018-09-30] MEDS: oxyBUTYnin *DITROPAN XL* 5 MG TABCR PO SCH ×2 (09:33→20:31)
[2018-09-30] MEDS: DIVALPROEX 500MG *ER* TAB PO SCH ×2 (09:33→20:31)
--- NOTE | 2018-09-30 10:55 | MHIPNPDOC ---
[facility] Progress Note Progress Note DATE OF SERVICE: 09/30/18 HISTORY: Patient is a 68 -year-old , female, with a history of moderate dementia, schizophrenia who was sent to [facility] ED from [facility] [facility] due to pt being combative and assaultive toward staff there, threatening 91y/o roommate, and licking hands covered in feces. Recently d/c from medical floor for treatment of hypotension and seen by Dr. Renato becker and diagnosed with schizophrenia. Per nursing staff, when pt seen today, asked if she was incontinent of feces and pt proceeded to put her hands down the back of her pants then smell and lick her had stating "no I'm clean" then went on to like a bar of soap. When I attempted to see pt in her room she looked at me and then looked down not cooperating with interview. History gathered from chart review. VITAL SIGNS: See below. NEW TEST RESULTS: depakote lvl - 60.5 therapeutic CURRENT MEDICATIONS: See below. MENTAL STATUS EXAMINATION: No change from yesterday General Appearance: clean, dress own clothes that smell less of urine, looks nice, laying in bed. doesn't smell of urine today, walking with walker Build: average Demeanor: pleasant Eye Contact: good Activity: average Behavior: cooperative, calm Speech: reg rate/rhythm/volume Mood: euthymic, bright Mood "good" Affect: appropriate, calm, cooperative Thought Process: coherent, more linear and logical to conversation Thought Content (Delusions): none reported Thought Content (Other): none reported Thought Content (Aggressive): none reported Perception (Hallucinations): none reported Perception (Other): none reported Cognition (Impairment of): improved orientation, attention/concentration, ability to abstract Cognition(Intelligence Est.): other (demented) Oriented: Awake, Alert, oriented Insight: limited Judgment: limited Psychosis: none reported DIAGNOSES: paranoid schizophrenia moderate cognitive d/o ASSESSMENT:Roughly no change from last week. Pt seen in her room stating she's hopeful to be [facility] to [facility] that [facility]. Advised application for [facility] [place] is submitting and awaiting bed date. She is very pleasant and bright. She is cooperative and states her mood is good. Per nursing pt is attending to her own personal hygiene care well and keeping herself dry of urine. Room does smell less of urine. Pt is taking sponge baths on her own daily although doesn't smell of urine. Tolerating oxybutin 5mg bid and incontinence is improved although still has occasional incontinence. Will continue to encourage daily hygiene. Baseline isolative to room most likely due to difficulty walking. Walking with walker and PT daily. Out of room more often due to increased ability to walk. Had PT consult for the stairs yesterday and stated she did good going up and down one flight of stairs which she was proud about. Attention is good. Able to ask appropriate questions and show some level of understanding during interview. Compliant with all oral meds and appears they are beneficial and she's tolerating them well. Pt took invega sustenna monthly dose yesterday and tolerated it well, appears beneficial, and denies side effects. Ag[facility] to [facility] to [facility] as long as she can smoke there. Will follow-up with d/c farm planner. MANAGEMENT PLAN: continue current plan. Medications: invega sustenna 234mg im 09/09/18 depakote er 500mg bid. oxybutin 5mg bid for incontinence TIME SPENT: 30 minutes. Vital Signs Vital Signs Date Time Temp Pulse Resp B/P (MAP) Pulse Ox O2 Delivery O2 Flow Rate FiO2 09/30/18 06:38 98.0 62 16 88/51 (63) 09/27/18 06:35 Room Air 09/25/18 18:00 95 Current Medications Current Medications Acetaminophen (Tylenol Tab) 650 mg Q6HP PRN PO HEADACHE or DISCOMFORT; Start 07/31/18 at 19:00 Al Hydrox/Mg Hydrox/Simethicone (Mylanta) 30 ml Q4HP PRN PO HEARTBURN/INDIGESTION; Start 07/31/18 at 19:00 Aripiprazole (AbiLIFY) 2 mg QHS PO Last administered on 07/31/18at 20:53; Start 07/31/18 at 21:00; Stop 08/01/18 at 15:17; Status DC Aripiprazole (AbiLIFY) 5 mg QAM PO Last administered on 08/01/18at 09:19; Start 08/01/18 at 09:00; Stop 08/01/18 at 15:17; Status DC Cefdinir (Omnicef) 300 mg BID PO Last administered on 11/15/18at 21:25; Start 08/02/18 at 09:00; Stop 08/08/18 at 21:01; Status DC Divalproex Sodium (Depakote Er) 500 mg BID PO Last administered on 09/30/18at 09:33; Start 07/31/18 at 21:00 Divalproex Sodium (Depakote) 500 mg BID PO ; Start 07/31/18 at 21:00; Stop 07/31/18 at 21:00; Status DC Fluoxetine HCl (PROzac) 10 mg QHS PO Last administered on 07/31/18at 20:52; Start 07/31/18 at 21:00; Stop 08/01/18 at 15:17; Status DC Home Med (Med Rec Complete!) ASDIRECTED XX ; Start 07/31/18 at 16:00; Stop 07/31/18 at 16:08; Status DC Magnesium Hydroxide (Milk Of Magnesia) 30 ml DAILYPRN PRN PO CONSTIPATION; Start 07/31/18 at 19:00 Miscellaneous (Unresolved Clarification Entry) SEE LABEL COMMENTS DAILY XX ; Start 09/28/18 at 09:00; Stop 09/28/18 at 14:07; Status DC Miscellaneous (Unresolved Clarification Entry) SEE LABEL COMMENTS DAILY XX ; Start 09/02/18 at 09:00; Stop 09/02/18 at 09:52; Status DC Miscellaneous (Unresolved Clarification Entry) SEE LABEL COMMENTS DAILY XX ; Start 09/12/18 at 09:00; Stop 09/12/18 at 11:52; Status DC Miscellaneous (Unresolved Clarification Entry) SEE LABEL COMMENTS DAILY XX ; Start 08/29/18 at 09:00; Stop 08/30/18 at 12:30; Status DC Miscellaneous (Unresolved Clarification Entry) SEE LABEL COMMENTS DAILY XX ; Start 09/01/18 at 09:00; Stop 09/02/18 at 07:17; Status DC Olanzapine (ZyPREXA ZYDIS) 10 mg Q4HP PRN PO ANXIETY/AGITATION Last administered on 08/03/18at 16:46; Start 08/03/18 at 12:45; Stop 09/02/18 at 09:52; Status DC Oxybutynin Chloride (Ditropan Xl) 5 mg BID PO Last administered on 09/30/18at 09:33; Start 08/14/18 at 09:00 Paliperidone (Invega) 3 mg QAM PO Last administered on 08/07/18at 09:24; Start 08/02/18 at 09:00; Stop 08/07/18 at 10:40; Status DC Paliperidone (Invega) 3 mg QHS PO Last administered on 08/06/18at 20:48; Start 08/01/18 at 21:00; Stop 08/07/18 at 10:40; Status DC Paliperidone Palmitate (Invega Sustenna) 234 mg Q30D IM ; Start 10/09/18 at 09:00 Risperidone (RisperDAL) 3 mg DAILY PO Last administered on 08/01/18at 09:19; Start 08/01/18 at 09:00; Stop 08/01/18 at 15:17; Status DC Trazodone HCl (Desyrel) 50 mg QHSP PRN PO INSOMNIA Last administered on 08/07/18at 22:28; Start 07/31/18 at 19:00 Allergies Coded Allergies: No Known Allergies (Verified , 08/13/05) WILLIAM SALCEDO DO Sep 30, 2018 10:55 am
[2018-09-30 18:00] VITALS: BP 90/52
[2018-10-01 06:28] VITALS: BP 102/58
[2018-10-01] MEDS: oxyBUTYnin *DITROPAN XL* 5 MG TABCR PO SCH ×2 (09:18→20:33)
[2018-10-01] MEDS: DIVALPROEX 500MG *ER* TAB PO SCH ×2 (09:18→20:33)
--- NOTE | 2018-10-01 10:05 | MHIPNPDOC ---
[facility] Progress Note Progress Note DATE OF SERVICE: 10/01/18 HISTORY: Patient is a 68 -year-old , female, with a history of moderate dementia, schizophrenia who was sent to [facility] ED from [facility] due to pt being combative and assaultive toward staff there, threatening 91y/o roommate, and licking hands covered in feces. Recently d/c from medical floor for treatment of hypotension and seen by Dr. Renato becker and diagnosed with schizophrenia. Per nursing staff, when pt seen today, asked if she was incontinent of feces and pt proceeded to put her hands down the back of her pants then smell and lick her had stating "no I'm clean" then went on to like a bar of soap. When I attempted to see pt in her room she looked at me and then looked down not cooperating with interview. History gathered from chart review. VITAL SIGNS: See below. NEW TEST RESULTS: depakote lvl - 60.5 therapeutic CURRENT MEDICATIONS: See below. MENTAL STATUS EXAMINATION: No change from yesterday General Appearance: clean, dress own clothes that smell less of urine, looks nice, laying in bed. doesn't smell of urine today, walking with walker Build: average Demeanor: pleasant Eye Contact: good Activity: average Behavior: cooperative, calm Speech: reg rate/rhythm/volume Mood: euthymic, bright Mood "good" Affect: appropriate, calm, cooperative Thought Process: coherent, more linear and logical to conversation Thought Content (Delusions): none reported Thought Content (Other): none reported Thought Content (Aggressive): none reported Perception (Hallucinations): none reported Perception (Other): none reported Cognition (Impairment of): improved orientation, attention/concentration, ability to abstract Cognition(Intelligence Est.): other (demented) Oriented: Awake, Alert, oriented Insight: limited Judgment: limited Psychosis: none reported DIAGNOSES: paranoid schizophrenia moderate cognitive d/o ASSESSMENT:Roughly no change from yesterday. Pt seen in her room stating and states she's good. She's hopeful [facility] be [facility] she [facility]. Application for [facility] in [place] is submitting and awaiting bed date. She is very pleasant and bright. She is cooperative and states her mood is good. Per nursing pt is attending to her own personal hygiene care well and keeping herself dry of urine. Room does smell less of urine. Pt is taking sponge baths on her own daily although doesn't smell of urine. Tolerating oxybutin 5mg bid and incontinence is improved although still has occasional incontinence. Will continue to encourage daily hygiene. Baseline isolative to room most likely due to difficulty walking. Walking with walker and PT daily. Out of room more often due to increased ability to walk. Had PT consult for the stairs yesterday and stated she did good going up and down one flight of stairs which she was proud about. Attention is good. Able to ask appropriate questions and show some level of understanding during interview. Compliant with all oral meds and appears they are beneficial and she's tolerating them well. Pt took invega sustenna monthly dose yesterday and tolerated it well, appears beneficial, and denies side effects. Agrees to go to [facility] as long as she can smoke there. Will follow-up with d/c finished goods planner. MANAGEMENT PLAN: continue current plan. Medications: invega sustenna 234mg im 09/09/18 depakote er 500mg bid. oxybutin 5mg bid for incontinence TIME SPENT: 30 minutes. Vital Signs Vital Signs Date Time Temp Pulse Resp B/P (MAP) Pulse Ox O2 Delivery O2 Flow Rate FiO2 10/01/18 06:28 98.0 60 18 102/58 (73) 09/27/18 06:35 Room Air 09/25/18 18:00 95 Current Medications Current Medications Acetaminophen (Tylenol Tab) 650 mg Q6HP PRN PO HEADACHE or DISCOMFORT; Start 07/31/18 at 19:00 Al Hydrox/Mg Hydrox/Simethicone (Mylanta) 30 ml Q4HP PRN PO HEARTBURN/INDIGESTION; Start 07/31/18 at 19:00 Aripiprazole (AbiLIFY) 2 mg QHS PO Last administered on 07/31/18at 20:53; Start 07/31/18 at 21:00; Stop 08/01/18 at 15:17; Status DC Aripiprazole (AbiLIFY) 5 mg QAM PO Last administered on 08/01/18at 09:19; Start 08/01/18 at 09:00; Stop 08/01/18 at 15:17; Status DC Cefdinir (Omnicef) 300 mg BID PO Last administered on 08/08/18at 21:25; Start 08/02/18 at 09:00; Stop 08/08/18 at 21:01; Status DC Divalproex Sodium (Depakote Er) 500 mg BID PO Last administered on 10/01/18at 09:18; Start 07/31/18 at 21:00 Divalproex Sodium (Depakote) 500 mg BID PO ; Start 07/31/18 at 21:00; Stop 07/31/18 at 21:00; Status DC Fluoxetine HCl (PROzac) 10 mg QHS PO Last administered on 07/31/18at 20:52; S tart 07/31/18 at 21:00; Stop 08/01/18 at 15:17; Status DC Home Med (Med Rec Complete!) ASDIRECTED XX ; Start 07/31/18 at 16:00; Stop 07/31/18 at 16:08; Status DC Magnesium Hydroxide (Milk Of Magnesia) 30 ml DAILYPRN PRN PO CONSTIPATION; Start 07/31/18 at 19:00 Miscellaneous (Unresolved Clarification Entry) SEE LABEL COMMENTS DAILY XX ; Start 09/28/18 at 09:00; Stop 09/28/18 at 14:07; Status DC Miscellaneous (Unresolved Clarification Entry) SEE LABEL COMMENTS DAILY XX ; Start 09/02/18 at 09:00; Stop 09/02/18 at 09:52; Status DC Miscellaneous (Unresolved Clarification Entry) SEE LABEL COMMENTS DAILY XX ; Start 09/12/18 at 09:00; Stop 09/12/18 at 11:52; Status DC Miscellaneous (Unresolved Clarification Entry) SEE LABEL COMMENTS DAILY XX ; Start 08/29/18 at 09:00; Stop 08/30/18 at 12:30; Status DC Miscellaneous (Unresolved Clarification Entry) SEE LABEL COMMENTS DAILY XX ; Start 09/01/18 at 09:00; Stop 09/02/18 at 07:17; Status DC Olanzapine (ZyPREXA ZYDIS) 10 mg Q4HP PRN PO ANXIETY/AGITATION Last administered on 08/03/18at 16:46; Start 08/03/18 at 12:45; Stop 09/02/18 at 09:52; Status DC Oxybutynin Chloride (Ditropan Xl) 5 mg BID PO Last administered on 10/01/18at 09:18; Start 08/14/18 at 09:00 Paliperidone (Invega) 3 mg QAM PO Last administered on 08/07/18at 09:24; Start 08/02/18 at 09:00; Stop 08/07/18 at 10:40; Status DC Paliperidone (Invega) 3 mg QHS PO Last administered on 08/06/18at 20:48; Start 08/01/18 at 21:00; Stop 08/07/18 at 10:40; Status DC Paliperidone Palmitate (Invega Sustenna) 234 mg Q30D IM ; Start 10/09/18 at 09:00 Risperidone (RisperDAL) 3 mg DAILY PO Last administered on 08/01/18at 09:19; Start 08/01/18 at 09:00; Stop 08/01/18 at 15:17; Status DC Trazodone HCl (Desyrel) 50 mg QHSP PRN PO INSOMNIA Last administered on 08/07/18at 22:28; Start 07/31/18 at 19:00 Allergies Coded Allergies: No Known Allergies (Verified , 08/13/05) WILLIAM SALCEDO DO Oct 01, 2018 10:05 am
[2018-10-01 18:00] VITALS: BP 106/58
[2018-10-02 06:38] VITALS: BP 109/59
--- NOTE | 2018-10-02 08:40 | MHIPNPDOC ---
[facility] Progress Note Progress Note DATE OF SERVICE: 10/02/18 HISTORY: Patient is a 68 -year-old , female, with a history of moderate dementia, schizophrenia who was sent to [facility] ED from [facility] due to pt being combative and assaultive toward staff there, threatening 91y/o roommate, and licking hands covered in feces. Recently d/c from medical floor for treatment of hypotension and seen by Dr. Renato becker and diagnosed with schizophrenia. Per nursing staff, when pt seen today, asked if she was incontinent of feces and pt proceeded to put her hands down the back of her pants then smell and lick her had stating "no I'm clean" then went on to like a bar of soap. When I attempted to see pt in her room she looked at me and then looked down not cooperating with interview. History gathered from chart review. VITAL SIGNS: See below. NEW TEST RESULTS: depakote lvl - 60.5 therapeutic CURRENT MEDICATIONS: See below. MENTAL STATUS EXAMINATION: No change from yesterday General Appearance: clean, dress own clothes that smell less of urine, looks nice, laying in bed. doesn't smell of urine today, walking with walker Build: average Demeanor: pleasant Eye Contact: good Activity: average Behavior: cooperative, calm Speech: reg rate/rhythm/volume Mood: euthymic, bright Mood "good" Affect: appropriate, calm, cooperative Thought Process: coherent, more linear and logical to conversation Thought Content (Delusions): none reported Thought Content (Other): none reported Thought Content (Aggressive): none reported Perception (Hallucinations): none reported Perception (Other): none reported Cognition (Impairment of): improved orientation, attention/concentration, ability to abstract Cognition(Intelligence Est.): other (demented) Oriented: Awake, Alert, oriented Insight: limited Judgment: limited Psychosis: none reported DIAGNOSES: paranoid schizophrenia moderate cognitive d/o ASSESSMENT:Roughly no change from yesterday. Pt seen in her room states she's good. She's hopeful to be discharged to senior living that she can smoke at soon. Application for [facility] in [place] is submitting and awaiting bed date. She is very pleasant and bright. She is cooperative and states her mood is good. Per nursing pt is attending to her own personal hygiene care well and keeping herself dry of urine. Room does smell less of urine. Pt is taking sponge baths on her own daily although doesn't smell of urine. Tolerating oxybutin 5mg bid and incontinence is improved although still has occasional incontinence. Will continue to encourage daily hygiene. Baseline isolative to room most likely due to difficulty walking. Walking with walker and PT daily. Out of room more often due to increased ability to walk. Had PT consult for the stairs yesterday and stated she did good going up and down one flight of stairs which she was proud about. Attention is good. Able to ask appropriate questions and show some level of understanding during interview. Compliant with all oral meds and appears they are beneficial and she's tolerating them well. Pt took invega sustenna monthly dose yesterday and tolerated it well, appears beneficial, and denies side effects. Agrees to go to senior living as long as she can smoke there. Will follow-up with d/c environmental emergencies planner. MANAGEMENT PLAN: continue current plan. Medications: invega sustenna 234mg im 09/09/18 depakote er 500mg bid. oxybutin 5mg bid for incontinence TIME SPENT: 30 minutes. Vital Signs Vital Signs Date Time Temp Pulse Resp B/P (MAP) Pulse Ox O2 Delivery O2 Flow Rate FiO2 10/02/18 06:38 98.0 54 16 109/59 (76) 09/27/18 06:35 Room Air Current Medications Current Medications Acetaminophen (Tylenol Tab) 650 mg Q6HP PRN PO HEADACHE or DISCOMFORT; Start 07/31/18 at 19:00 Al Hydrox/Mg Hydrox/Simethicone (Mylanta) 30 ml Q4HP PRN PO HEARTBURN /INDIGESTION; Start 07/31/18 at 19:00 Aripiprazole (AbiLIFY) 2 mg QHS PO Last administered on 07/31/18at 20:53; Start 07/31/18 at 21:00; Stop 08/01/18 at 15:17; Status DC Aripiprazole (AbiLIFY) 5 mg QAM PO Last administered on 08/01/18at 09:19; Start 08/01/18 at 09:00; Stop 08/01/18 at 15:17; Status DC Cefdinir (Omnicef) 300 mg BID PO Last administered on 08/08/18at 21:25; Start 08/02/18 at 09:00; Stop 08/08/18 at 21:01; Status DC Divalproex Sodium (Depakote Er) 500 mg BID PO Last administered on 10/01/18at 20:33; Start 07/31/18 at 21:00 Divalproex Sodium (Depakote) 500 mg BID PO ; Start 07/31/18 at 21:00; Stop 07/31/18 at 21:00; Status DC Fluoxetine HCl (PROzac) 10 mg QHS PO Last administered on 07/31/18at 20:52; Start 07/31/18 at 21:00; Stop 08/01/18 at 15:17; Status DC Home Med (Med Rec Complete!) ASDIRECTED XX ; Start 07/31/18 at 16:00; Stop 07/31/18 at 16:08; Status DC Magnesium Hydroxide (Milk Of Magnesia) 30 ml DAILYPRN PRN PO CONSTIPATION; Start 07/31/18 at 19:00 Miscellaneous (Unresolved Clarification Entry) SEE LABEL COMMENTS DAILY XX ; Start 09/28/18 at 09:00; Stop 09/28/18 at 14:07; Status DC Miscellaneous (Unresolved Clarification Entry) SEE LABEL COMMENTS DAILY XX ; Start 09/02/18 at 09:00; Stop 09/02/18 at 09:52; Status DC Miscellaneous (Unresolved Clarification Entry) SEE LABEL COMMENTS DAILY XX ; Start 09/12/18 at 09:00; Stop 09/12/18 at 11:52; Status DC Miscellaneous (Unresolved Clarification Entry) SEE LABEL COMMENTS DAILY XX ; Start 08/29/18 at 09:00; Stop 08/30/18 at 12:30; Status DC Miscellaneous (Unresolved Clarification Entry) SEE LABEL COMMENTS DAILY XX ; Start 09/01/18 at 09:00; Stop 09/02/18 at 07:17; Status DC Olanzapine (ZyPREXA ZYDIS) 10 mg Q4HP PRN PO ANXIETY/AGITATION Last administered on 08/03/18at 16:46; Start 08/03/18 at 12:45; Stop 09/02/18 at 09:52; Status DC Oxybutynin Chloride (Ditropan Xl) 5 mg BID PO Last administered on 10/01/18at 20:33; Start 08/14/18 at 09:00 Paliperidone (Invega) 3 mg QAM PO Last administered on 08/07/18at 09:24; Start 08/02/18 at 09:00; Stop 08/07/18 at 10:40; Status DC Paliperidone (Invega) 3 mg QHS PO Last administered on 08/06/18at 20:48; Start 08/01/18 at 21:00; Stop 08/07/18 at 10:40; Status DC Paliperidone Palmitate (Invega Sustenna) 234 mg Q30D IM ; Start 10/09/18 at 09:00 Risperidone (RisperDAL) 3 mg DAILY PO Last administered on 08/01/18at 09:19; Start 08/01/18 at 09:00; Stop 08/01/18 at 15:17; Status DC Trazodone HCl (Desyrel) 50 mg QHSP PRN PO INSOMNIA Last administered on 08/07/18at 22:28; Start 07/31/18 at 19:00 Allergies Coded Allergies: No Known Allergies (Verified , 08/13/05) WILLIAM SALCEDO DO Oct 02, 2018 8:40 am
[2018-10-02] MEDS: DIVALPROEX 500MG *ER* TAB PO SCH ×2 (08:43→20:56)
[2018-10-02] MEDS: oxyBUTYnin *DITROPAN XL* 5 MG TABCR PO SCH ×2 (08:43→20:55)
[2018-10-02 18:00] VITALS: BP 90/54
[2018-10-03 07:12] VITALS: BP 118/56
--- NOTE | 2018-10-03 08:59 | MHIPNPDOC ---
[facility] Progress Note Progress Note DATE OF SERVICE: 10/03/18 HISTORY: Patient is a 68 -year-old , female, with a history of moderate dementia, schizophrenia who was sent to [facility] ED from [facility] due to pt being combative and assaultive toward staff there, threatening 91y/o roommate, and licking hands covered in feces. Recently d/c from medical floor for treatment of hypotension and seen by Dr. Renato becker and diagnosed with schizophrenia. Per nursing staff, when pt seen today, asked if she was incontinent of feces and pt proceeded to put her hands down the back of her pants then smell and lick her had stating "no I'm clean" then went on to like a bar of soap. When I attempted to see pt in her room she looked at me and then looked down not cooperating with interview. History gathered from chart review. VITAL SIGNS: See below. NEW TEST RESULTS: depakote lvl - 60.5 therapeutic CURRENT MEDICATIONS: See below. MENTAL STATUS EXAMINATION: No change from yesterday General Appearance: clean, dress own clothes that smell less of urine, looks nice, laying in bed. doesn't smell of urine today, walking with walker Build: average Demeanor: pleasant Eye Contact: good Activity: average Behavior: cooperative, calm Speech: reg rate/rhythm/volume Mood: euthymic, bright Mood "good" Affect: appropriate, calm, cooperative Thought Process: coherent, more linear and logical to conversation Thought Content (Delusions): none reported Thought Content (Other): none reported Thought Content (Aggressive): none reported Perception (Hallucinations): none reported Perception (Other): none reported Cognition (Impairment of): improved orientation, attention/concentration, ability to abstract Cognition(Intelligence Est.): other (demented) Oriented: Awake, Alert, oriented Insight: limited Judgment: limited Psychosis: none reported DIAGNOSES: paranoid schizophrenia moderate cognitive d/o ASSESSMENT:Roughly no change from yesterday. Pt seen in her room states she's good. She's hopeful to be discharged to intermediate that she can smoke at soon (possibly in 1-2wks). Application for [facility] in [place] is submitting and awaiting bed date. She is very pleasant and bright. She is cooperative and states her mood is good. Per nursing pt is attending to her own personal hygiene care well and keeping herself dry of urine. Room does smell less of urine. Pt is taking sponge baths on her own daily although doesn't smell of urine. Tolerating oxybutin 5mg bid and incontinence is improved although still has occasional incontinence. Will continue to encourage daily hygiene. Baseline isolative to room most likely due to difficulty walking. Walking with walker and PT daily. Out of room more often due to increased ability to walk. Had PT consult for the stairs yesterday and stated she did good going up and down one flight of stairs which she was proud about. Attention is good. Able to ask appropriate questions and show some level of understanding during interview. Compliant with all oral meds and appears they are beneficial and she's tolerating them well. Pt took invega sustenna monthly dose yesterday and tolerated it well, appears beneficial, and denies side effects. Agrees to go to intermediate as long as she can smoke there. Will follow-up with d/c process planner. MANAGEMENT PLAN: continue current plan. Medications: invega sustenna 234mg im 10/10/17 depakote er 500mg bid. oxybutin 5mg bid for incontinence TIME SPENT: 30 minutes. Vital Signs Vital Signs Date Time Temp Pulse Resp B/P (MAP) Pulse Ox O2 Delivery O2 Flow Rate FiO2 10/03/18 07:12 98.3 60 16 118/56 (76) 09/27/18 06:35 Room Air Current Medications Current Medications Acetaminophen (Tylenol Tab) 650 mg Q6HP PRN PO HEADACHE or DISCOMFORT; Start 07/31/18 at 19:00 Al Hydrox/Mg Hydrox/Simethicone (Mylanta) 30 ml Q4HP PRN PO HEARTBURN/INDIGESTION; Start 07/31/18 at 19:00 Aripiprazole (AbiLIFY) 2 mg QHS PO Last administered on 07/31/18at 20:53; Start 07/31/18 at 21:00; Stop 08/01/18 at 15:17; Status DC Aripiprazole (AbiLIFY) 5 mg QAM PO Last administered on 08/01/18at 09:19; Start 08/01/18 at 09:00; Stop 08/01/18 at 15:17; Status DC Cefdinir (Omnicef) 300 mg BID PO Last administered on 08/08/18at 21:25; Start 08/02/18 at 09:00; Stop 08/08/18 at 21:01; Status DC Divalproex Sodium (Depakote Er) 500 mg BID PO Last administered on 10/02/18at 20:56; Start 07/31/18 at 21:00 Divalproex Sodium (Depakote) 500 mg BID PO ; Start 07/31/18 at 21:00; Stop 07/31/18 at 21:00; Status DC Fluoxetine HCl (PROzac) 10 mg QHS PO Last administered on 07/31/18at 20:52; Start 07/31/18 at 21:00; Stop 08/01/18 at 15:17; Status DC Home Med (Med Rec Complete!) ASDIRECTED XX ; Start 07/31/18 at 16:00; Stop 07/31/18 at 16:08; Status DC Magnesium Hydroxide (Milk Of Magnesia) 30 ml DAILYPRN PRN PO CONSTIPATION; Start 07/31/18 at 19:00 Miscellaneous (Unresolved Clarification Entry) SEE LABEL COMMENTS DAILY XX ; Start 09/28/18 at 09:00; Stop 09/28/18 at 14:07; Status DC Miscellaneous (Unresolved Clarification Entry) SEE LABEL COMMENTS DAILY XX ; Start 09/02/18 at 09:00; Stop 09/02/18 at 09:52; Status DC Miscellaneous (Unresolved Clarification Entry) SEE LABEL COMMENTS DAILY XX ; Start 09/12/18 at 09:00; Stop 09/12/18 at 11:52; Status DC Miscellaneous (Unresolved Clarification Entry) SEE LABEL COMMENTS DAILY XX ; Start 08/29/18 at 09:00; Stop 08/30/18 at 12:30; Status DC Miscellaneous (Unresolved Clarification Entry) SEE LABEL COMMENTS DAILY XX ; Start 09/01/18 at 09:00; Stop 09/02/18 at 07:17; Status DC Olanzapine (ZyPREXA ZYDIS) 10 mg Q4HP PRN PO ANXIETY/AGITATION Last administered on 08/03/18at 16:46; Start 08/03/18 at 12:45; Stop 09/02/18 at 09:52; Status DC Oxybutynin Chloride (Ditropan Xl) 5 mg BID PO Last administered on 10/02/18at 20:55; Start 08/14/18 at 09:00 Paliperidone (Invega) 3 mg QAM PO Last administered on 08/07/18at 09:24; Start 08/02/18 at 09:00; Stop 08/07/18 at 10:40; Status DC Paliperidone (Invega) 3 mg QHS PO Last administered on 08/06/18at 20:48; Start 08/01/18 at 21:00; Stop 08/07/18 at 10:40; Status DC Paliperidone Palmitate (Invega Sustenna) 234 mg Q30D IM ; Start 10/09/18 at 09:00 Risperidone (RisperDAL) 3 mg DAILY PO Last administered on 08/01/18at 09:19; Start 08/01/18 at 09:00; Stop 08/01/18 at 15:17; Status DC Trazodone HCl (Desyrel) 50 mg QHSP PRN PO INSOMNIA Last administered on 08/07/18at 22:28; Start 07/31/18 at 19:00 Allergies Coded Allergies: No Known Allergies (Verified , 08/13/05) WILLIAM SALCEDO DO Oct 03, 2018 8:59 am
[2018-10-03] MEDS: oxyBUTYnin *DITROPAN XL* 5 MG TABCR PO SCH ×2 (09:05→20:22)
[2018-10-03] MEDS: DIVALPROEX 500MG *ER* TAB PO SCH ×2 (09:05→20:22)
[2018-10-03 18:00] VITALS: BP 97/46
[2018-10-04 06:00] VITALS: BP 90/54
[2018-10-04] MEDS: DIVALPROEX 500MG *ER* TAB PO SCH ×2 (08:26→20:17)
[2018-10-04] MEDS: oxyBUTYnin *DITROPAN XL* 5 MG TABCR PO SCH ×2 (08:26→20:17)
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
[2018-10-04 18:00] VITALS: BP 108/56
[2018-10-05 06:17] VITALS: BP 106/68
[2018-10-05 08:00] VITALS: BP 93/50
[2018-10-05] MEDS: oxyBUTYnin *DITROPAN XL* 5 MG TABCR PO SCH ×2 (09:02→20:41)
[2018-10-05] MEDS: DIVALPROEX 500MG *ER* TAB PO SCH ×2 (09:02→20:42)
[2018-10-05 18:00] VITALS: BP 118/59
[2018-10-06 06:00] VITALS: BP 113/67
[2018-10-06] MEDS: oxyBUTYnin *DITROPAN XL* 5 MG TABCR PO SCH ×2 (08:16→20:29)
[2018-10-06] MEDS: DIVALPROEX 500MG *ER* TAB PO SCH ×2 (08:16→20:29)
[2018-10-06 18:00] VITALS: BP 97/56
[2018-10-07 06:22] VITALS: BP 110/53
[2018-10-07] MEDS: DIVALPROEX 500MG *ER* TAB PO SCH ×2 (09:08→20:34)
[2018-10-07] MEDS: oxyBUTYnin *DITROPAN XL* 5 MG TABCR PO SCH ×2 (09:08→20:34)
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
[2018-10-07 18:00] VITALS: BP 82/43
[2018-10-08 06:44] VITALS: BP 84/47
[2018-10-08] MEDS: DIVALPROEX 500MG *ER* TAB PO SCH ×2 (07:28→22:25)
[2018-10-08] MEDS: oxyBUTYnin *DITROPAN XL* 5 MG TABCR PO SCH ×2 (07:28→22:25)
[2018-10-08 18:00] VITALS: BP 93/45
[2018-10-09 06:40] VITALS: BP 92/52
[2018-10-09] MEDS: DIVALPROEX 500MG *ER* TAB PO SCH ×2 (08:34→20:11)
[2018-10-09] MEDS: oxyBUTYnin *DITROPAN XL* 5 MG TABCR PO SCH ×2 (08:34→20:11)
[2018-10-09] MEDS ORDERED: PALIPERIDONE PALMITATE 234 MG/1.5 ML INJ (INVEGA SUSTENNA)(J2426) IM SCH (09:00)
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
[2018-10-09 18:00] VITALS: BP 94/54
[2018-10-10 06:24] VITALS: BP 91/53
[2018-10-10] MEDS: oxyBUTYnin *DITROPAN XL* 5 MG TABCR PO SCH ×2 (08:41→20:27)
[2018-10-10] MEDS: DIVALPROEX 500MG *ER* TAB PO SCH ×2 (08:42→20:27)
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
[2018-10-10 18:00] VITALS: BP 101/57
[2018-10-11 06:26] VITALS: BP 96/51
[2018-10-11] MEDS: DIVALPROEX 500MG *ER* TAB PO SCH ×2 (08:14→21:07)
[2018-10-11] MEDS: oxyBUTYnin *DITROPAN XL* 5 MG TABCR PO SCH ×2 (08:14→21:07)
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
[2018-10-11 18:00] VITALS: BP 92/49
[2018-10-12 06:43] VITALS: BP 119/66
[2018-10-12] MEDS: oxyBUTYnin *DITROPAN XL* 5 MG TABCR PO SCH ×2 (08:53→21:02)
[2018-10-12] MEDS: DIVALPROEX 500MG *ER* TAB PO SCH ×2 (08:53→21:02)
[2018-10-12 18:00] VITALS: BP 106/55
[2018-10-13 06:00] VITALS: BP 104/55
[2018-10-13] MEDS: DIVALPROEX 500MG *ER* TAB PO SCH ×2 (08:08→21:37)
[2018-10-13] MEDS: oxyBUTYnin *DITROPAN XL* 5 MG TABCR PO SCH ×2 (08:08→21:37)
[2018-10-13 18:07] VITALS: BP 84/47
[2018-10-14 06:45] VITALS: BP 136/65
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
[2018-10-14] MEDS: DIVALPROEX 500MG *ER* TAB PO SCH ×2 (09:15→21:32)
[2018-10-14] MEDS: oxyBUTYnin *DITROPAN XL* 5 MG TABCR PO SCH ×2 (09:15→21:32)
[2018-10-14 18:00] VITALS: BP 90/56
[2018-10-15 07:00] VITALS: BP 97/54
[2018-10-15] MEDS: oxyBUTYnin *DITROPAN XL* 5 MG TABCR PO SCH ×2 (08:13→21:02)
[2018-10-15] MEDS: DIVALPROEX 500MG *ER* TAB PO SCH ×2 (08:13→21:02)
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
[2018-10-15 18:28] VITALS: BP 104/62
[2018-10-16 07:00] VITALS: BP 101/53
[2018-10-16] MEDS: DIVALPROEX 500MG *ER* TAB PO SCH ×2 (09:03→21:08)
[2018-10-16] MEDS: oxyBUTYnin *DITROPAN XL* 5 MG TABCR PO SCH ×2 (09:03→21:08)
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
[2018-10-16 18:39] VITALS: BP 100/56
[2018-10-17 06:43] VITALS: BP 96/54
[2018-10-17] MEDS: oxyBUTYnin *DITROPAN XL* 5 MG TABCR PO SCH ×2 (08:57→21:33)
[2018-10-17] MEDS: DIVALPROEX 500MG *ER* TAB PO SCH ×2 (08:57→21:33)
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
[2018-10-17 18:00] VITALS: BP 102/55
[2018-10-18 07:00] VITALS: BP 116/57
[2018-10-18] MEDS: DIVALPROEX 500MG *ER* TAB PO SCH ×2 (08:02→20:58)
[2018-10-18] MEDS: oxyBUTYnin *DITROPAN XL* 5 MG TABCR PO SCH ×2 (08:02→20:58)
--- NOTE | 2018-10-18 09:40 | MHIPNPDOC ---
[facility] Progress Note Progress Note DATE OF SERVICE: 10/18/18 HISTORY: Patient is a 68 -year-old , female, with a history of moderate dementia, schizophrenia who was sent to [facility] ED from [facility] due to pt being combative and assaultive toward staff there, threatening 91y/o roommate, and licking hands covered in feces. Recently d/c from medical floor for treatment of hypotension and seen by Dr. Renato becker and diagnosed with schizophrenia. Per nursing staff, when pt seen today, asked if she was incontinent of feces and pt proceeded to put her hands down the back of her pants then smell and lick her had stating "no I'm clean" then went on to like a bar of soap. When I attempted to see pt in her room she looked at me and then looked down not cooperating with interview. History gathered from chart review. VITAL SIGNS: See below. NEW TEST RESULTS: depakote lvl - 48.8 a little sub-therapeutic CURRENT MEDICATIONS: See below. MENTAL STATUS EXAMINATION: No change from yesterday General Appearance: clean, dress own clothes that smell less of urine, looks nice, laying in bed. doesn't smell of urine today, walking with walker Build: average Demeanor: pleasant Eye Contact: good Activity: average Behavior: cooperative, calm Speech: reg rate/rhythm/volume Mood: euthymic, bright Mood "good" Affect: appropriate, calm, cooperative Thought Process: coherent, more linear and logical to conversation Thought Content (Delusions): none reported Thought Content (Other): none reported Thought Content (Aggressive): none reported Perception (Hallucinations): none reported Perception (Other): none reported Cognition (Impairment of): improved orientation, attention/concentration, ability to abstract Cognition(Intelligence Est.): other (demented) Oriented: Awake, Alert, oriented Insight: limited Judgment: limited Psychosis: none reported DIAGNOSES: paranoid schizophrenia moderate cognitive d/o ASSESSMENT:Roughly no change from yesterday. Pt seen in her room states she's good. Resting comfortably prior to eating breakfast again. Per nursing, pt has to be continually encouraged to eat meals in the lounge rather than her bed to maintain cleanliness. D/c senior production planner has applied for for [facility] to the [facility] for care and awaiting their plan. She is very pleasant and bright. She is cooperative and states her mood is good. Per nursing pt is attending to her own personal hygiene care well and keeping herself dry of urine although at times smells strong of urine and has to be reminded to wash properly. Room does smell less of urine today. Pt is taking sponge baths on her own daily although doesn't smell of urine. Tolerating oxybutin 5mg bid and incontinence is improved although still has occasional incontinence. Will continue to encourage daily hygiene. Baseline isolative to room most likely due to difficulty walking. Walking with walker and PT daily. Attention is good. Able to ask appropriate questions and show some level of understanding during interview. Compliant with all oral meds and appears they are beneficial and she's tolerating them well. MANAGEMENT PLAN: continue current plan. D/c senior production planner has applied for for [facility] to the [facility] for care and awaiting their plan. Medications: invega sustenna 234mg im 10/10/17 - will give today. depakote er 500mg bid. oxybutin 5mg bid for incontinence TIME SPENT: 30 minutes. Vital Signs Vital Signs Date Time Temp Pulse Resp B/P (MAP) Pulse Ox O2 Delivery O2 Flow Rate FiO2 10/18/18 07:00 97.4 60 14 116/57 (76) 10/17/18 06:43 Room Air 10/13/18 06:00 95 Current Medications Current Medications Acetaminophen (Tylenol Tab) 650 mg Q6HP PRN PO HEADACHE or DISCOMFORT; Start 07/31/18 at 19:00 Al Hydrox/Mg Hydrox/Simethicone (Mylanta) 30 ml Q4HP PRN PO HEARTBURN/INDIGESTION; Start 07/31/18 at 19:00 Aripiprazole (AbiLIFY) 2 mg QHS PO Last administered on 07/31/18at 20:53; Start 07/31/18 at 21:00; Stop 08/01/18 at 15:17; Status DC Aripiprazole (AbiLIFY) 5 mg QAM PO Last administered on 08/01/18at 09:19; Start 08/01/18 at 09:00; Stop 08/01/18 at 15:17; Status DC Cefdinir (Omnicef) 300 mg BID PO Last administered on 08/08/18at 21:25; Start 08/02/18 at 09:00; Stop 08/08/18 at 21:01; Status DC Divalproex Sodium (Depakote Er) 500 mg BID PO Last administered on 10/18/18at 08:02; Start 07/31/18 at 21:00 Divalproex Sodium (Depakote) 500 mg BID PO ; Start 07/31/18 at 21:00; Stop 07/31/18 at 21:00; Status DC Fluoxetine HCl (PROzac) 10 mg QHS PO Last administered on 07/31/18at 20:52; Start 07/31/18 at 21:00; Stop 08/01/18 at 15:17; Status DC Home Med (Med Rec Complete!) ASDIRECTED XX ; Start 07/31/18 at 16:00; Stop 07/31/18 at 16:08; Status DC Magnesium Hydroxide (Milk Of Magnesia) 30 ml DAILYPRN PRN PO CONSTIPATION; Start 07/31/18 at 19:00 Miscellaneous (Unresolved Clarification Entry) SEE LABEL COMMENTS DAILY XX ; S tart 09/28/18 at 09:00; Stop 09/28/18 at 14:07; Status DC Miscellaneous (Unresolved Clarification Entry) SEE LABEL COMMENTS DAILY XX ; Start 09/02/18 at 09:00; Stop 09/02/18 at 09:52; Status DC Miscellaneous (Unresolved Clarification Entry) SEE LABEL COMMENTS DAILY XX ; Start 09/12/18 at 09:00; Stop 09/12/18 at 11:52; Status DC Miscellaneous (Unresolved Clarification Entry) SEE LABEL COMMENTS DAILY XX ; Start 08/29/18 at 09:00; Stop 08/30/18 at 12:30; Status DC Miscellaneous (Unresolved Clarification Entry) SEE LABEL COMMENTS DAILY XX ; Start 09/01/18 at 09:00; Stop 09/02/18 at 07:17; Status DC Olanzapine (ZyPREXA ZYDIS) 10 mg Q4HP PRN PO ANXIETY/AGITATION Last administered on 08/03/18at 16:46; Start 08/03/18 at 12:45; Stop 09/02/18 at 09:52; Status DC Oxybutynin Chloride (Ditropan Xl) 5 mg BID PO Last administered on 10/18/18at 08:02; Start 08/14/18 at 09:00 Paliperidone (Invega) 3 mg QAM PO Last administered on 08/07/18at 09:24; Start 08/02/18 at 09:00; Stop 08/07/18 at 10:40; Status DC Paliperidone (Invega) 3 mg QHS PO Last administered on 08/06/18at 20:48; Start 08/01/18 at 21:00; Stop 08/07/18 at 10:40; Status DC Paliperidone Palmitate (Invega Sustenna) 234 mg Q30D IM Last administered on 10/09/18at 10:59; Start 10/09/18 at 09:00 Risperidone (RisperDAL) 3 mg DAILY PO Last administered on 08/01/18at 09:19; Start 08/01/18 at 09:00; Stop 08/01/18 at 15:17; Status DC Trazodone HCl (Desyrel) 50 mg QHSP PRN PO INSOMNIA Last administered on 08/07/18at 22:28; Start 07/31/18 at 19:00 Allergies Coded Allergies: No Known Allergies (Verified , 08/13/05) WILLIAM SALCEDO DO Oct 18, 2018 9:40 am
[2018-10-18 18:15] VITALS: BP 97/59
[2018-10-19 06:12] VITALS: BP 97/46
[2018-10-19] MEDS: oxyBUTYnin *DITROPAN XL* 5 MG TABCR PO SCH ×2 (08:07→20:37)
[2018-10-19] MEDS: DIVALPROEX 500MG *ER* TAB PO SCH ×2 (08:08→20:37)
[2018-10-19 18:00] VITALS: BP 90/54
[2018-10-20 06:30] VITALS: BP 100/57
[2018-10-20] MEDS: oxyBUTYnin *DITROPAN XL* 5 MG TABCR PO SCH ×2 (08:00→21:14)
[2018-10-20] MEDS: DIVALPROEX 500MG *ER* TAB PO SCH ×2 (08:00→21:14)
[2018-10-20 18:00] VITALS: BP 90/59
[2018-10-21 06:40] VITALS: BP 103/50
[2018-10-21] MEDS: DIVALPROEX 500MG *ER* TAB PO SCH ×2 (09:13→20:10)
[2018-10-21] MEDS: oxyBUTYnin *DITROPAN XL* 5 MG TABCR PO SCH ×2 (09:13→20:10)
--- NOTE | 2018-10-21 09:33 | MHIPNPDOC ---
[facility] Progress Note Progress Note DATE OF SERVICE: 10/21/18 HISTORY: Patient is a 68 -year-old , female, with a history of moderate dementia, schizophrenia who was sent to [facility] ED from [facility] due to pt being combative and assaultive toward staff there, threatening 91y/o roommate, and licking hands covered in feces. Recently d/c from medical floor for treatment of hypotension and seen by Dr. Renato becker and diagnosed with schizophrenia. Per nursing staff, when pt seen today, asked if she was incontinent of feces and pt proceeded to put her hands down the back of her pants then smell and lick her had stating "no I'm clean" then went on to like a bar of soap. When I attempted to see pt in her room she looked at me and then looked down not cooperating with interview. History gathered from chart review. VITAL SIGNS: See below. NEW TEST RESULTS: depakote lvl - 48.8 a little sub-therapeutic CURRENT MEDICATIONS: See below. MENTAL STATUS EXAMINATION: No change from yesterday General Appearance: clean, dress own clothes that smell less of urine, looks nice, laying in bed. doesn't smell of urine today, walking with walker Build: average Demeanor: pleasant Eye Contact: good Activity: average Behavior: cooperative, calm Speech: reg rate/rhythm/volume Mood: euthymic, bright Mood "good" Affect: appropriate, calm, cooperative Thought Process: coherent, more linear and logical to conversation Thought Content (Delusions): none reported Thought Content (Other): none reported Thought Content (Aggressive): none reported Perception (Hallucinations): none reported Perception (Other): none reported Cognition (Impairment of): improved orientation, attention/concentration, ability to abstract Cognition(Intelligence Est.): other (demented) Oriented: Awake, Alert, oriented Insight: limited Judgment: limited Psychosis: none reported DIAGNOSES: paranoid schizophrenia moderate cognitive d/o ASSESSMENT:Roughly no change from last weekend. Pt seen in her room states she's good. Per nursing, pt has to be continually encouraged to eat meals in the lounge rather than her bed to maintain cleanliness. D/c financial planner has applied for for [facility] and pt accept to [facility] for residential housing with bed later this week. She is very excited to go there. She is very pleasant and bright. She is cooperative and states her mood is good. Per nursing pt is attending to her own personal hygiene care well and keeping herself dry of urine although at times smells strong of urine and has to be reminded to wash properly. Room does smell less of urine today. Pt is taking sponge baths on her own daily although doesn't smell of urine. Tolerating oxybutin 5mg bid and incontinence is improved although still has occasional incontinence. Will continue to encourage daily hygiene. Baseline isolative to room most likely due to difficulty walking. Walking with walker and PT daily. Attention is good. Able to ask appropriate questions and show some level of understanding during interview. Compliant with all oral meds and appears they are beneficial and she's tolerating them well. MANAGEMENT PLAN: continue current plan. D/c to [facility] for residential housing later this week Medications: invega sustenna 234mg im 10/10/17 - will give today. depakote er 500mg bid. oxybutin 5mg bid for incontinence TIME SPENT: 30 minutes. Vital Signs Vital Signs Date Time Temp Pulse Resp B/P (MAP) Pulse Ox O2 Delivery O2 Flow Rate FiO2 10/21/18 06:40 97.6 52 16 103/50 (67) 10/20/18 18:00 Room Air Current Medications Current Medications Acetaminophen (Tylenol Tab) 650 mg Q6HP PRN PO HEADACHE or DISCOMFORT; Start 07/31/18 at 19:00 Al Hydrox/Mg Hydrox/Simethicone (Mylanta) 30 ml Q4HP PRN PO HEARTBURN/INDIGESTION; Start 07/31/18 at 19:00 Aripiprazole (AbiLIFY) 2 mg QHS PO Last administered on 07/31/18at 20:53; Start 07/31/18 at 21:00; Stop 08/01/18 at 15:17; Status DC Aripiprazole (AbiLIFY) 5 mg QAM PO Last administered on 08/01/18at 09:19; Start 08/01/18 at 09:00; Stop 08/01/18 at 15:17; Status DC Cefdinir (Omnicef) 300 mg BID PO Last administered on 08/08/18at 21:25; Start 08/02/18 at 09:00; Stop 08/08/18 at 21:01; Status DC Divalproex Sodium (Depakote Er) 500 mg BID PO Last administered on 10/21/18at 09:13; Start 07/31/18 at 21:00 Divalproex Sodium (Depakote) 500 mg BID PO ; Start 07/31/18 at 21:00; Stop 07/31/18 at 21:00; Status DC Fluoxetine HCl (PROzac) 10 mg QHS PO Last administered on 07/31/18at 20:52; Start 07/31/18 at 21:00; Stop 08/01/18 at 15:17; Status DC Home Med (Med Rec Complete!) ASDIRECTED XX ; Start 07/31/18 at 16:00; Stop 07/31/18 at 16:08; Status DC Magnesium Hydroxide (Milk Of Magnesia) 30 ml DAILYPRN PRN PO CONSTIPATION; Start 07/31/18 at 19:00 Miscellaneous (Unresolved Clarification Entry) SEE LABEL COMMENTS DAILY XX ; Start 09/28/18 at 09:00; Stop 09/28/18 at 14:07; Status DC Miscellaneous (Unresolved Clarification Entry) SEE LABEL COMMENTS DAILY XX ; Start 09/02/18 at 09:00; Stop 09/02/18 at 09:52; Status DC Miscellaneous (Unresolved Clarification Entry) SEE LABEL COMMENTS DAILY XX ; Start 09/12/18 at 09:00; Stop 09/12/18 at 11:52; Status DC Miscellaneous (Unresolved Clarification Entry) SEE LABEL COMMENTS DAILY XX ; Start 08/29/18 at 09:00; Stop 08/30/18 at 12:30; Status DC Miscellaneous (Unresolved Clarification Entry) SEE LABEL COMMENTS DAILY XX ; Start 09/01/18 at 09:00; Stop 09/02/18 at 07:17; Status DC Olanzapine (ZyPREXA ZYDIS) 10 mg Q4HP PRN PO ANXIETY/AGITATION Last admi nistered on 08/03/18at 16:46; Start 08/03/18 at 12:45; Stop 09/02/18 at 09:52; Status DC Oxybutynin Chloride (Ditropan Xl) 5 mg BID PO Last administered on 10/21/18at 09:13; Start 08/14/18 at 09:00 Paliperidone (Invega) 3 mg QAM PO Last administered on 08/07/18at 09:24; Start 08/02/18 at 09:00; Stop 08/07/18 at 10:40; Status DC Paliperidone (Invega) 3 mg QHS PO Last administered on 08/06/18at 20:48; Start 08/01/18 at 21:00; Stop 08/07/18 at 10:40; Status DC Paliperidone Palmitate (Invega Sustenna) 234 mg Q30D IM Last administered on 10/09/18at 10:59; Start 10/09/18 at 09:00 Risperidone (RisperDAL) 3 mg DAILY PO Last administered on 08/01/18at 09:19; Start 08/01/18 at 09:00; Stop 08/01/18 at 15:17; Status DC Trazodone HCl (Desyrel) 50 mg QHSP PRN PO INSOMNIA Last administered on 08/07/18at 22:28; Start 07/31/18 at 19:00 Allergies Coded Allergies: No Known Allergies (Verified , 08/13/05) WILLIAM SALCEDO DO Oct 21, 2018 9:33 am
[2018-10-21 18:31] VITALS: BP 94/48
[2018-10-22 06:41] VITALS: BP 105/55
[2018-10-22] MEDS: DIVALPROEX 500MG *ER* TAB PO SCH ×2 (09:16→22:11)
[2018-10-22] MEDS: oxyBUTYnin *DITROPAN XL* 5 MG TABCR PO SCH ×2 (09:16→22:11)
--- NOTE | 2018-10-22 10:06 | MHIPNPDOC ---
[facility] Progress Note Progress Note DATE OF SERVICE: 10/22/18 HISTORY: Patient is a 68 -year-old , female, with a history of moderate dementia, schizophrenia who was sent to [facility] ED from [facility] due to pt being combative and assaultive toward staff there, threatening 91y/o roommate, and licking hands covered in feces. Recently d/c from medical floor for treatment of hypotension and seen by Dr. Renato becker and diagnosed with schizophrenia. Per nursing staff, when pt seen today, asked if she was incontinent of feces and pt proceeded to put her hands down the back of her pants then smell and lick her had stating "no I'm clean" then went on to like a bar of soap. When I attempted to see pt in her room she looked at me and then looked down not cooperating with interview. History gathered from chart review. VITAL SIGNS: See below. NEW TEST RESULTS: depakote lvl - 48.8 a little sub-therapeutic CURRENT MEDICATIONS: See below. MENTAL STATUS EXAMINATION: No change from yesterday General Appearance: clean, dress own clothes that smell less of urine, looks nice, laying in bed. doesn't smell of urine today, walking with walker Build: average Demeanor: pleasant Eye Contact: good Activity: average Behavior: cooperative, calm Speech: reg rate/rhythm/volume Mood: euthymic, bright Mood "good" Affect: appropriate, calm, cooperative Thought Process: coherent, more linear and logical to conversation Thought Content (Delusions): none reported Thought Content (Other): none reported Thought Content (Aggressive): none reported Perception (Hallucinations): none reported Perception (Other): none reported Cognition (Impairment of): improved orientation, attention/concentration, ability to abstract Cognition(Intelligence Est.): other (demented) Oriented: Awake, Alert, oriented Insight: limited Judgment: limited Psychosis: none reported DIAGNOSES: paranoid schizophrenia moderate cognitive d/o ASSESSMENT:Roughly no change from yesterday. Pt seen in her room states she's good. Per nursing, pt has to be continually encouraged to eat meals in the lounge rather than her bed to maintain cleanliness. D/c data recovery planner has applied for for [facility] and pt accept to [facility] for residential housing with bed later this week. She is very excited to go there. She is very pleasant and bright. She is cooperative and states her mood is good. Per nursing pt is attending to her own personal hygiene care well and keeping herself dry of urine although at times smells strong of urine and has to be reminded to wash properly. Room does smell less of urine today. Pt is taking sponge baths on her own daily although doesn't smell of urine. Tolerating oxybutin 5mg bid and incontinence is improved although still has occasional incontinence. Will continue to encourage daily hygiene. Baseline isolative to room most likely due to difficulty walking. Walking with walker and PT daily. Attention is good. Able to ask appropriate questions and show some level of understanding during interview. Compliant with all oral meds and appears they are beneficial and she's tolerating them well. MANAGEMENT PLAN: continue current plan. D/c to [facility] for residential housing later this week. Order 30day supply of meds for d/c to [facility] Medications: invega sustenna 234mg im 10/10/17 - will give today. depakote er 500mg bid. oxybutin 5mg bid for incontinence TIME SPENT: 30 minutes. Vital Signs Vital Signs Date Time Temp Pulse Resp B/P (MAP) Pulse Ox O2 Delivery O2 Flow Rate FiO2 10/22/18 09:18 Room Air 10/22/18 06:41 97.9 68 12 105/55 (72) Current Medications Current Medications Acetaminophen (Tylenol Tab) 650 mg Q6HP PRN PO HEADACHE or DISCOMFORT Last ad ministered on 10/21/18at 22:32; Start 07/31/18 at 19:00 Al Hydrox/Mg Hydrox/Simethicone (Mylanta) 30 ml Q4HP PRN PO HEARTBURN/IN DIGESTION; Start 07/31/18 at 19:00 Aripiprazole (AbiLIFY) 2 mg QHS PO Last administered on 07/31/18at 20:53; Start 07/31/18 at 21:00; Stop 08/01/18 at 15:17; Status DC Aripiprazole (AbiLIFY) 5 mg QAM PO Last administered on 08/01/18at 09:19; Start 08/01/18 at 09:00; Stop 08/01/18 at 15:17; Status DC Cefdinir (Omnicef) 300 mg BID PO Last administered on 08/08/18at 21:25; Start 08/02/18 at 09:00; Stop 08/08/18 at 21:01; Status DC Divalproex Sodium (Depakote Er) 500 mg BID PO Last administered on 10/22/18at 09:16; Start 07/31/18 at 21:00 Divalproex Sodium (Depakote) 500 mg BID PO ; Start 07/31/18 at 21:00; Stop 07/31/18 at 21:00; Status DC Fluoxetine HCl (PROzac) 10 mg QHS PO Last administered on 07/31/18at 20:52; Start 07/31/18 at 21:00; Stop 08/01/18 at 15:17; Status DC Home Med (Med Rec Complete!) ASDIRECTED XX ; Start 07/31/18 at 16:00; Stop 07/31/18 at 16:08; Status DC Magnesium Hydroxide (Milk Of Magnesia) 30 ml DAILYPRN PRN PO CONSTIPATION; Start 07/31/18 at 19:00 Miscellaneous (Unresolved Clarification Entry) SEE LABEL COMMENTS DAILY XX ; Start 09/28/18 at 09:00; Stop 09/28/18 at 14:07; Status DC Miscellaneous (Unresolved Clarification Entry) SEE LABEL COMMENTS DAILY XX ; Start 09/02/18 at 09:00; Stop 09/02/18 at 09:52; Status DC Miscellaneous (Unresolved Clarification Entry) SEE LABEL COMMENTS DAILY XX ; Start 09/12/18 at 09:00; Stop 09/12/18 at 11:52; Status DC Miscellaneous (Unresolved Clarification Entry) SEE LABEL COMMENTS DAILY XX ; Start 08/29/18 at 09:00; Stop 08/30/18 at 12:30; Status DC Miscellaneous (Unresolved Clarification Entry) SEE LABEL COMMENTS DAILY XX ; Start 09/01/18 at 09:00; Stop 09/02/18 at 07:17; Status DC Olanzapine (ZyPREXA ZYDIS) 10 mg Q4HP PRN PO ANXIETY/AGITATION Last administered on 08/03/18at 16:46; Start 08/03/18 at 12:45; Stop 09/02/18 at 09:52; Status DC Oxybutynin Chloride (Ditropan Xl) 5 mg BID PO Last administered on 10/22/18at 09:16; Start 08/14/18 at 09:00 Paliperidone (Invega) 3 mg QAM PO Last administered on 08/07/18at 09:24; Start 08/02/18 at 09:00; Stop 08/07/18 at 10:40; Status DC Paliperidone (Invega) 3 mg QHS PO Last administered on 08/06/18at 20:48; Start 08/01/18 at 21:00; Stop 08/07/18 at 10:40; Status DC Paliperidone Palmitate (Invega Sustenna) 234 mg Q30D IM Last administered on 10/09/18at 10:59; Start 10/09/18 at 09:00 Risperidone (RisperDAL) 3 mg DAILY PO Last administered on 08/01/18at 09:19; Start 08/01/18 at 09:00; Stop 08/01/18 at 15:17; Status DC Trazodone HCl (Desyrel) 50 mg QHSP PRN PO INSOMNIA Last administered on 10/07/17at 22:28; Start 07/31/18 at 19:00 Allergies Coded Allergies: No Known Allergies (Verified , 08/13/05) WILLIAM SALCEDO DO Oct 22, 2018 10:06 am
[2018-10-22] MEDS ORDERED: DIVA500T9 PO (11:46)
[2018-10-22] MEDS ORDERED: INVE234I IM (11:46)
[2018-10-22] MEDS ORDERED: TRAZO50TA PO (11:46)
[2018-10-22] MEDS ORDERED: DITR5TAB PO (11:46)
[2018-10-22 18:00] VITALS: BP 103/54
[2018-10-23 06:44] VITALS: BP 103/53
--- NOTE | 2018-10-23 09:12 | MHIPNPDOC ---
[facility] Progress Note Progress Note DATE OF SERVICE: 10/23/18 HISTORY: Patient is a 68 -year-old , female, with a history of moderate dementia, schizophrenia who was sent to [facility] ED from [facility] due to pt being combative and assaultive toward staff there, threatening 91y/o roommate, and licking hands covered in feces. Recently d/c from medical floor for treatment of hypotension and seen by Dr. Renato becker and diagnosed with schizophrenia. Per nursing staff, when pt seen today, asked if she was incontinent of feces and pt proceeded to put her hands down the back of her pants then smell and lick her had stating "no I'm clean" then went on to like a bar of soap. When I attempted to see pt in her room she looked at me and then looked down not cooperating with interview. History gathered from chart review. VITAL SIGNS: See below. NEW TEST RESULTS: depakote lvl - 48.8 a little sub-therapeutic CURRENT MEDICATIONS: See below. MENTAL STATUS EXAMINATION: No change from yesterday General Appearance: clean, dress own clothes that smell less of urine, looks nice, laying in bed. doesn't smell of urine today, walking with walker Build: average Demeanor: pleasant Eye Contact: good Activity: average Behavior: cooperative, calm Speech: reg rate/rhythm/volume Mood: euthymic, bright Mood "good" Affect: appropriate, calm, cooperative Thought Process: coherent, more linear and logical to conversation Thought Content (Delusions): none reported Thought Content (Other): none reported Thought Content (Aggressive): none reported Perception (Hallucinations): none reported Perception (Other): none reported Cognition (Impairment of): improved orientation, attention/concentration, ability to abstract Cognition(Intelligence Est.): other (demented) Oriented: Awake, Alert, oriented Insight: limited Judgment: limited Psychosis: none reported DIAGNOSES: paranoid schizophrenia moderate cognitive d/o ASSESSMENT:Roughly no change from yesterday. Pt seen in her room states she's good. Per nursing, pt has to be continually encouraged to eat meals in the lounge rather than her bed to maintain cleanliness. D/c senior program planner has applied for for [facility] and pt accept to [facility] for residential housing with bed tomorrow. She is very excited to go there. She is very pleasant and bright. She is cooperative and states her mood is good. Per nursing pt is attending to her own personal hygiene care well and keeping herself dry of urine although at times smells strong of urine and has to be reminded to wash properly. Room does smell less of urine today. Pt is taking sponge baths on her own daily although doesn't smell of urine. Tolerating oxybutin 5mg bid and incontinence is improved although still has occasional incontinence. Will continue to encourage daily hygiene. Baseline isolative to room most likely due to difficulty walking. Walking with walker and PT daily. Attention is good. Able to ask appropriate questions and show some level of understanding during interview. Compliant with all oral meds and appears they are beneficial and she's tolerating them well. MANAGEMENT PLAN: continue current plan. D/c to [facility] for residential housing tomorrow. Medications: invega sustenna 234mg im 10/10/17 - will give today. depakote er 500mg bid. oxybutin 5mg bid for incontinence TIME SPENT: 30 minutes. Vital Signs Vital Signs Date Time Temp Pulse Resp B/P (MAP) Pulse Ox O2 Delivery O2 Flow Rate FiO2 10/23/18 08:35 Room Air 10/23/18 06:44 98.7 50 14 103/53 (70) Current Medications Current Medications Acetaminophen (Tylenol Tab) 650 mg Q6HP PRN PO HEADACHE or DISCOMFORT Last administered on 10/21/18at 22:32; Start 07/31/18 at 19:00 Al Hydrox/Mg Hydrox/Simethicone (Mylanta) 30 ml Q4HP PRN PO HEARTBURN/INDIGESTION; Start 07/31/18 at 19:00 Aripiprazole (AbiLIFY) 2 mg QHS PO Last administered on 07/31/18at 20:53; Start 07/31/18 at 21:00; Stop 08/01/18 at 15:17; Status DC Aripiprazole (AbiLIFY) 5 mg QAM PO Last administered on 08/01/18at 09:19; Start 08/01/18 at 09:00; Stop 08/01/18 at 15:17; Status DC Cefdinir (Omnicef) 300 mg BID PO Last administered on 08/08/18at 21:25; Start 08/02/18 at 09:00; Stop 08/08/18 at 21:01; Status DC Divalproex Sodium (Depakote Er) 500 mg BID PO Last administered on 10/22/18at 22:11; Start 07/31/18 at 21:00 Divalproex Sodium (Depakote) 500 mg BID PO ; Start 07/31/18 at 21:00; Stop 07/31/18 at 21:00; Status DC Fluoxetine HCl (PROzac) 10 mg QHS PO Last administered on 07/31/18at 20:52; Start 07/31/18 at 21:00; Stop 08/01/18 at 15:17; Status DC Home Med (Med Rec Complete!) ASDIRECTED XX ; Start 07/31/18 at 16:00; Stop 07/31/18 at 16:08; Status DC Magnesium Hydroxide (Milk Of Magnesia) 30 ml DAILYPRN PRN PO CONSTIPATION; Start 07/31/18 at 19:00 Miscellaneous (Unresolved Clarification Entry) SEE LABEL COMMENTS DAILY XX ; Start 09/28/18 at 09:00; Stop 09/28/18 at 14:07; Status DC Miscellaneous (Unresolved Clarification Entry) SEE LABEL COMMENTS DAILY XX ; Start 09/02/18 at 09:00; Stop 09/02/18 at 09:52; Status DC Miscellaneous (Unresolved Clarification Entry) SEE LABEL COMMENTS DAILY XX ; Start 09/12/18 at 09:00; Stop 09/12/18 at 11:52; Status DC Miscellaneous (Unresolved Clarification Entry) SEE LABEL COMMENTS DAILY XX ; Start 08/29/18 at 09:00; Stop 08/30/18 at 12:30; Status DC Miscellaneous (Unresolved Clarification Entry) SEE LABEL COMMENTS DAILY XX ; Start 09/01/18 at 09:00; Stop 09/02/18 at 07:17; Status DC Olanzapine (ZyPREXA ZYDIS) 10 mg Q4HP PRN PO ANXIETY/AGITATION Last administered on 08/03/18at 16:46; Start 08/03/18 at 12:45; Stop 09/02/18 at 09:52; Status DC Oxybutynin Chloride (Ditropan Xl) 5 mg BID PO Last administered on 10/22/18at 22:11; Start 08/14/18 at 09:00 Paliperidone (Invega) 3 mg QAM PO Last administered on 08/07/18at 09:24; Start 08/02/18 at 09:00; Stop 08/07/18 at 10:40; Status DC Paliperidone (Invega) 3 mg QHS PO Last administered on 08/06/18at 20:48; Start 08/01/18 at 21:00; Stop 08/07/18 at 10:40; Status DC Paliperidone Palmitate (Invega Sustenna) 234 mg Q30D IM Last administered on 10/09/18at 10:59; Start 10/09/18 at 09:00 Risperidone (RisperDAL) 3 mg DAILY PO Last administered on 08/01/18at 09:19; Start 08/01/18 at 09:00; Stop 08/01/18 at 15:17; Status DC Trazodone HCl (Desyrel) 50 mg QHSP PRN PO INSOMNIA Last administered on 08/07/18at 22:28; Start 07/31/18 at 19:00 Allergies Coded Allergies: No Known Allergies (Verified , 08/13/05) WILLIAM SALCEDO DO Oct 23, 2018 9:12 am
[2018-10-23] MEDS: DIVALPROEX 500MG *ER* TAB PO SCH ×2 (09:18→20:17)
[2018-10-23] MEDS: oxyBUTYnin *DITROPAN XL* 5 MG TABCR PO SCH ×2 (09:18→20:17)
[2018-10-23] MEDS ORDERED: DEPA500T2 PO (10:45)
[2018-10-23] MEDS ORDERED: MYLASSUD PO (10:45)
[2018-10-23] MEDS ORDERED: MILK120011 PO (10:45)
--- NOTE | 2018-10-23 14:14 | REP ---
Clinical: Rule out TB. Technique: Single portable view of the chest. Comparison: 06/20/2018. Findings: Mediastinum and cardiac silhouette are stable. Hiatal hernia identified. Lung betancourt demonstrate chronic interstitial changes. No acute consolidation, effusion, or pneumothorax. Skeletal structures stable. Impression: Hiatal hernia. Chronic changes. No acute cardiopulmonary process appreciated. Electronically Signed by Vikram Acevedo MD 10/23/2018 02:05 P
[2018-10-23 18:00] VITALS: BP 92/54
[2018-10-24 06:00] VITALS: BP 106/58
[2018-10-24] MEDS: oxyBUTYnin *DITROPAN XL* 5 MG TABCR PO SCH ×2 (09:18→20:08)
[2018-10-24] MEDS: DIVALPROEX 500MG *ER* TAB PO SCH ×2 (09:20→20:08)
--- NOTE | 2018-10-24 09:20 | MHIPNPDOC ---
[facility] Progress Note Progress Note DATE OF SERVICE: 10/24/18 HISTORY: Patient is a 68 -year-old , female, with a history of moderate dementia, schizophrenia who was sent to [facility] ED from [facility] due to pt being combative and assaultive toward staff there, threatening 91y/o roommate, and licking hands covered in feces. Recently d/c from medical floor for treatment of hypotension and seen by Dr. Renato becker and diagnosed with schizophrenia. Per nursing staff, when pt seen today, asked if she was incontinent of feces and pt proceeded to put her hands down the back of her pants then smell and lick her had stating "no I'm clean" then went on to like a bar of soap. When I attempted to see pt in her room she looked at me and then looked down not cooperating with interview. History gathered from chart review. VITAL SIGNS: See below. NEW TEST RESULTS: depakote lvl - 48.8 a little sub-therapeutic CURRENT MEDICATIONS: See below. MENTAL STATUS EXAMINATION: No change from yesterday General Appearance: clean, dress own clothes that smell less of urine, looks nice, laying in bed. doesn't smell of urine today, walking with walker Build: average Demeanor: pleasant Eye Contact: good Activity: average Behavior: cooperative, calm Speech: reg rate/rhythm/volume Mood: euthymic, bright Mood "good" Affect: appropriate, calm, cooperative Thought Process: coherent, more linear and logical to conversation Thought Content (Delusions): none reported Thought Content (Other): none reported Thought Content (Aggressive): none reported Perception (Hallucinations): none reported Perception (Other): none reported Cognition (Impairment of): improved orientation, attention/concentration, ability to abstract Cognition(Intelligence Est.): other (demented) Oriented: Awake, Alert, oriented Insight: limited Judgment: limited Psychosis: none reported DIAGNOSES: paranoid schizophrenia moderate cognitive d/o ASSESSMENT:Roughly no change from yesterday. Pt seen in her room states she's good. Per nursing, pt has to be continually encouraged to eat meals in the lounge rather than her bed to maintain cleanliness. D/c parquet floor layer has applied for for [facility] and pt accept to [facility] for residential housing with bed tomorrow. Disappointed she's not going today on apart of the weather and snow. She is very excited to go there. She is very pleasant and bright. She is cooperative and states her mood is good. Per nursing pt is attending to her own personal hygiene care well and keeping herself dry of urine although at times smells strong of urine and has to be reminded to wash properly. Room does smell less of urine today. Pt is taking sponge baths on her own daily although doesn't smell of urine. Tolerating oxybutin 5mg bid and incontinence is improved although still has occasional incontinence. Will continue to encourage daily hygiene. Baseline isolative to room most likely due to difficulty walking. Walking with walker and PT daily. Attention is good. Able to ask appropriate questions and show some level of understanding during interview. Compliant with all oral meds and appears they are beneficial and she's tolerating them well. MANAGEMENT PLAN: continue current plan. D/c to [facility] for residential housing tomorrow. Medications: invega sustenna 234mg im 10/10/17 - will give today. depakote er 500mg bid. oxybutin 5mg bid for incontinence TIME SPENT: 30 minutes. Vital Signs Vital Signs Date Time Temp Pulse Resp B/P (MAP) Pulse Ox O2 Delivery O2 Flow Rate FiO2 10/24/18 06:00 97.1 62 16 106/58 (74) 10/23/18 08:35 Room Air Current Medications Current Medications Acetaminophen (Tylenol Tab) 650 mg Q6HP PRN PO HEADACHE or DISCOMFORT Last administered on 10/21/18at 22:32; Start 07/31/18 at 19:00 Al Hydrox/Mg Hydrox/Simethicone (Mylanta) 30 ml Q4HP PRN PO HEARTBURN/INDIG ESTION; Start 07/31/18 at 19:00 Aripiprazole (AbiLIFY) 2 mg QHS PO Last administered on 07/31/18at 20:53; Start 07/31/18 at 21:00; Stop 08/01/18 at 15:17; Status DC Aripiprazole (AbiLIFY) 5 mg QAM PO Last administered on 08/01/18at 09:19; Start 08/01/18 at 09:00; Stop 08/01/18 at 15:17; Status DC Cefdinir (Omnicef) 300 mg BID PO Last administered on 08/08/18at 21:25; Start 08/02/18 at 09:00; Stop 08/08/18 at 21:01; Status DC Divalproex Sodium (Depakote Er) 500 mg BID PO Last administered on 10/23/18at 20:17; Start 07/31/18 at 21:00 Divalproex Sodium (Depakote) 500 mg BID PO ; Start 07/31/18 at 21:00; Stop 07/31/18 at 21:00; Status DC Fluoxetine HCl (PROzac) 10 mg QHS PO Last administered on 07/31/18at 20:52; Start 07/31/18 at 21:00; Stop 08/01/18 at 15:17; Status DC Home Med (Med Rec Complete!) ASDIRECTED XX ; Start 07/31/18 at 16:00; Stop 07/31/18 at 16:08; Status DC Magnesium Hydroxide (Milk Of Magnesia) 30 ml DAILYPRN PRN PO CONSTIPATION; Start 07/31/18 at 19:00 Miscellaneous (Unresolved Clarification Entry) SEE LABEL COMMENTS DAILY XX ; Start 09/28/18 at 09:00; Stop 09/28/18 at 14:07; Status DC Miscellaneous (Unresolved Clarification Entry) SEE LABEL COMMENTS DAILY XX ; Start 09/02/18 at 09:00; Stop 09/02/18 at 09:52; Status DC Miscellaneous (Unresolved Clarification Entry) SEE LABEL COMMENTS DAILY XX ; Start 09/12/18 at 09:00; Stop 09/12/18 at 11:52; Status DC Miscellaneous (Unresolved Clarification Entry) SEE LABEL COMMENTS DAILY XX ; Start 08/29/18 at 09:00; Stop 08/30/18 at 12:30; Status DC Miscellaneous (Unresolved Clarification Entry) SEE LABEL COMMENTS DAILY XX ; Start 09/01/18 at 09:00; Stop 09/02/18 at 07:17; Status DC Olanzapine (ZyPREXA ZYDIS) 10 mg Q4HP PRN PO ANXIETY/AGITATION Last administered on 08/03/18at 16:46; Start 08/03/18 at 12:45; Stop 09/02/18 at 09:52; Status DC Oxybutynin Chloride (Ditropan Xl) 5 mg BID PO Last administered on 10/23/18at 20:17; Start 08/14/18 at 09:00 Paliperidone (Invega) 3 mg QAM PO Last administered on 08/07/18at 09:24; Start 08/02/18 at 09:00; Stop 08/07/18 at 10:40; Status DC Paliperidone (Invega) 3 mg QHS PO Last administered on 08/06/18at 20:48; Start 08/01/18 at 21:00; Stop 08/07/18 at 10:40; Status DC Paliperidone Palmitate (Invega Sustenna) 234 mg Q30D IM Last administered on 10/09/18at 10:59; Start 10/09/18 at 09:00 Risperidone (RisperDAL) 3 mg DAILY PO Last administered on 08/01/18at 09:19; Start 08/01/18 at 09:00; Stop 08/01/18 at 15:17; Status DC Trazodone HCl (Desyrel) 50 mg QHSP PRN PO INSOMNIA Last administered on 07/25 01/09at 22:28; Start 07/31/18 at 19:00 Allergies Coded Allergies: No Known Allergies (Verified , 08/13/05) WILLIAM SALCEDO DO Oct 24, 2018 9:20 am
[2018-10-24 18:00] VITALS: BP 97/50
[2018-10-25 07:44] VITALS: BP 107/50
--- NOTE | 2018-10-25 09:00 | MHDSPDOC ---
[facility] Discharge Summary Discharge Summary DATE OF ADMISSION: Jul 31, 2018 at 6:52 pm DATE OF DISCHARGE: Oct 25, 2018 DISCHARGE DIAGNOSES: paranoid schizophrenia moderate cognitive d/o REASON FOR ADMISSION: Patient is a 68 -year-old , female, with a history of moderate dementia, schizophrenia who was sent to [facility] from [facility] due to pt being combative and assaultive toward staff there, threatening 91y/o roommate, and licking hands covered in feces. Recently d/c from medical floor for treatment of hypotension and seen by Dr. Renato becker and diagnosed with schizophrenia. Per nursing staff, when pt seen today, asked if she was incontinent of feces and pt proceeded to put her hands down the back of her pants then smell and lick her had stating "no I'm clean" then went on to like a bar of soap. When I attempted to see pt in her room she looked at me and then looked down not cooperating with interview. History gathered from chart review. CONSULTANTS INVOLVED: PT for evaluation of mobility TEST RESULTS: depakote lvl - 48.8 TREATMENT AND PROGRESS ON THE UNIT : Pt was admitted to [facility], seen for psychiatric assessment and had to be chemical restrained with zyprexa IM that she took willing due to licking feces off her hands. She tolerated the medication well and after it was initially given she started taking invega 3mg bid agreeably. She was restarted on her previous depakote 500mg bid that she tolerated well with improvement in symptoms. Her oral invega was increased to 9mg bid progressively and she tolerated it well with great improvement in psychotic symptoms and behaviors. Pt started sponge bathing with at first nursing support than on her own as symptoms improved. She was started on oxybut in 5mg bid for incontinence and was provided adult diapers to aid her. She was given invega sustenna 234mg im then 156mg im 3 days later with discontinuation of oral invega. She tolerated IM invega well and hers symptoms remained resolved.. She was seen by PT to evaluate her mobility during her stay and she was given a walker. She was converted to snf status as residential housing was found for her. On day of discharge she denied depression, anxiety, insomnia, SI/HI, hallucinations, delusions. She was discharged discharged to [facility] in [place] with follow-up there. She felt safe for discharge. DISCHARGE ASSESSMENT: Pt seen in her room states she's good and is very excited to be go to [facility] in [place]. She is very pleasant and bright. She is cooperative and states her mood is good. Per nursing pt is attending to her own personal hygiene care well and keeping herself dry of urine. Pt is taking sponge baths on her own daily although doesn't smell of urine. Tolerating oxybutin 5mg bid and incontinence is improved although still has occasional incontinence. Tolerating invega sustenna and depakote well and finding beneficial. Walking with walker after seen by TP. Attention is good. Able to ask appropriate questions and show some level of understanding during interview. Compliant with all oral meds and appears they are beneficial and she's tolerating them well. She denies depression, anxiety, insomnia, SI/HI, hallucinations, delusions. She feels safe to be discharged to [facility] today. MENTAL STATUS EXAMINATION ON DISCHARGE: General Appearance: clean, dress own clothes that smell less of urine, looks nice, laying in bed. doesn't smell of urine today, walking with walker Build: average Demeanor: pleasant Eye Contact: good Activity: average Behavior: cooperative, calm Speech: reg rate/rhythm/volume Mood: euthymic, bright Mood "good" Affect: appropriate, calm, cooperative Thought Process: coherent, more linear and logical to conversation Thought Content (Delusions): none reported Thought Content (Other): none reported Thought Content (Aggressive): none reported Perception (Hallucinations): none reported Perception (Other): none reported Cognition (Impairment of): none reported Cognition(Intelligence Est.): other (demented) Oriented: Awake, Alert, oriented Insight: limited Judgment: limited Psychosis: none reported MEDICATIONS ON DISCHARGE: invega sustenna 234mg im 10/10/17 - will give today. depakote er 500mg bid. oxybutin 5mg bid for incontinence PLAN/FOLLOWUP ARRANGEMENTS: D/c to [facility]. The amount of time spent in the coordination of care for this patient was approximately 30 minutes. Vital Signs/I&Os Vital Signs Date Time Temp Pulse Resp B/P (MAP) Pulse Ox O2 Delivery O2 Flow Rate FiO2 10/25/18 07:44 99.1 56 16 107/50 (69) 10/23/18 08:35 Room Air Medications No Active Prescriptions or Reported Meds Allergies Coded Allergies: No Known Allergies (Verified , 08/13/05) WILLIAM SALCEDO DO Oct 25, 2018 9:00 am
== END 2018-10-25 08:35 | disposition home or self-care (01) | DRG 885 ==
LOC: M ED 11:52 → M ED INP 18:52 → M PSY 21:49
PROVIDERS: ADMIT Psychiatry & Neurology Psychiatry; ATTEND Psychiatry & Neurology Psychiatry
DX: F20.0 Paranoid schizophrenia (principal); N39.0 Urinary tract infection, site not specified; F17.200 Nicotine dependence, unspecified, uncomplicated; D75.89 Other specified diseases of blood and blood-forming organs; Z81.8 Family history of other mental and behavioral disorders; Z79.899 Other long term (current) drug therapy; Z91.14 Patient's other noncompliance with medication regimen